=== PATIENT | male | born 1975 | race Caucasian/White ===

== ENCOUNTER → 2020-01-04 17:07 | Outpatient (CLI) | payer MEDICAID, SELFPAY ==
[2020-01-04 17:52] LABS: Basophils # 0.1 K/mm3 (0-0.2); Basophils % 0.5 % (0.1-2.0); Eosinophils # 0.2 K/mm3 (0.0-0.4); Eosinophils % 1.8 % (0.1-12.0); Hematocrit 45.7 % (42.0-52.0); Lymphocytes # 2.4 K/mm3 (0.7-4.5); Lymphocytes % 24.5 % (10-50); Mean Corpuscular Hemoglobin 32.4 pg (27.0-31.2); Mean Corpuscular Volume 92.7 fl (80-94); Mean Platelet Volume 10.6 fl (7.4-10.4); Monocytes # 0.5 K/mm3 (0.1-1.0); Monocytes % 4.8 % (1.7-9.3); Neutrophils # 6.8 K/mm3 (1.8-7.8); Neutrophils % 68.3 % (37.0-80.0); Platelet Count 238 K/mm3 (142-424); Red Blood Count 4.92 M/mm3 (4.60-6.20); Red Cell Distribution Width 14.1 % (11.5-17.5); White Blood Count 9.9 K/mm3 (4.8-10.8)
[2020-01-04 17:58] LABS: Alanine Aminotransferase 27 U/L (12-78); Albumin Level 4.5 g/dl (3.5-5.0); Albumin/Globulin Ratio 1.4 (1.1-1.8); Alkaline Phosphatase 98 U/L (38-126); Anion Gap 14.5 mEq/L (5-15); Aspartate Amino Transferase 51 U/L (17-59); Bilirubin,Total 0.5 mg/dl (0.2-1.3); Blood Urea Nitrogen 13 mg/dl (9-20); Calcium 9.6 mg/dl (8.4-10.2); Carbon Dioxide 25 mmol/L (22.0-30.0); Chloride 104 mmol/L (98-107); Cholesterol 276 mg/dl (140-200); Estimated Glomerular Filt Rate 104 ml/min (>60); GFR (African American) 126 ML/MIN (>60); Globulin 3.2 g/dL (1.3-3.2); Glucose 88 mg/dl (74-100); HDL Cholesterol 46 mg/dl (40-60); Potassium 4.5 mmoL/L (3.5-5.1); Sodium 139 mmol/L (136-145); Total Protein,Serum 7.7 g/dl (6.3-8.2); Triglycerides 283 mg/dl (30-150); VLDL Cholesterol 57 mg/dL (0-40)
[2020-01-04 18:11] LABS: Direct LDL Cholesterol 188.58 mg/dL (100-129)
[2020-01-04 18:15] LABS: 25-OH Vitamin D, Total 24.1 ng/mL (30-100)
[2020-01-04 18:16] LABS: Free T4 (Free Thyroxine) 1.22 ng/dl (0.78-2.19)
[2020-01-04 18:29] LABS: Thyroid Stimulating Hormone 1.47 uIU/mL (0.465-4.68)
== END ==
PROVIDERS: Visit Provider Emergency Medicine
DX: R53.83 Other fatigue (principal); E55.9 Vitamin D deficiency, unspecified; Z79.899 Other long term (current) drug therapy
CPT/HCPCS: 80053; 80061; 82306; 84439; 84443; 85025

== ENCOUNTER 2020-05-29 10:55 | Emergency (ER) | payer MEDICAID, SELFPAY ==
[2020-05-29 11:00] VITALS: BP 143/94; PULSE 95; RESP 20; TEMP 36.6; O2SAT 97; BMI 35.5
--- NOTE | 2020-05-29 11:26 | HMH.EDUTC ---
[facility] [place] Disposition Clinical Impression: Bilateral otitis media Qualifiers: Otitis media type: unspecified Qualified Code(s): H66.93 - Otitis media, unspecified, bilateral Disposition: Home, Self-Care Condition on Discharge: Good Instructions: Middle Ear Infection, Middle Ear Infections (Alternative Therapy) Additional Instructions: Take medication as prescribed Follow up with ENT as recommended Follow up with your Family Doctor as recommended Return if needed Straight to ER if any life threatening symptoms You was tested for today for COVID19 your test result should be back later this evening, you may call back later this evening to see if your test results are back and the result [phone] You was given a handout with instructions for Self Quarantine and Self isolation for while you wait on test results and what to do if they are positive Prescriptions: Amoxicillin/Potassium Clav [Augmentin 875125 Tablet] 1 tab PO Q12H 10 Days #20 tab Transmission Status: Pending to [facility] Referrals: Kenroy Al MD [Primary Care Provider] - As needed Paul Feliciano MD [Staff Physician] - Miri Dixon MD [Consulting Physician] - Time of Disposition: 11:43 Medical Decision Making - Cb Inquiry Pt receiving controlled substance: No Cb was queried for this patient: No Vital Signs: 05/29/20 11:00 Temperature 97.9 F Temperature Source Oral Pulse Rate [Right Brachial] 95 H Respiratory Rate 20 Blood Pressure [Right Arm] 143/94 H Blood Pressure Mean [Right Arm] 110 Blood Pressure Source [Right Arm] Automatic Cuff Blood Pressure Position [Right Arm] Sitting 02 Sat by Pulse Oximetry 97 Oxygen Delivery Method Room Air [facility] HPI - General Stated complaint: covid test, left ear pain Time Seen by Provider: 05/29/20 11:27 Mode of Arrival: Ambulatory Source of Information: Patient Limitations: No Limitations Description of Symptoms (Recalled from Triage Doc. by RN): PATIENT C/O BILATERAL EAR PAIN (LEFT EAR IS WORSE). ALSO REQUESTING COVID TEST D/T EXPOSURE HEENT Symptoms (Recalled from RN notes): Yes Resp Symptoms (Recalled from RN notes): No Skin Symptoms (Recalled from RN notes): No MS Symptoms (Recalled from RN notes): No Functional Status (Recalled from RN notes): WNL - History of Present Illness Provider Complaint: Patient state that he has been battling ear infections for about 4 yrs State that ever so often he has to come in and get a shot of Rocephin to help to clear it up State that he has taken multiple antibotics and it keeps coming right back State that he was also around someone recently that tested positive for COVID and he wants to get checked - Related Data Previous Rx's Medication Instructions Recorded gabapentin 100 mg capsule 100 mg PO TID 7 Days #21 cap 01/04/20 gabapentin 300 mg capsule 300 mg PO TID #90 cap 01/04/20 lisinopril 10 mg tablet 10 mg PO DAILY #90 tab 01/04/20 atorvastatin 10 mg tablet 10 mg PO DAILY #90 tab 01/06/20 cholecalciferol (vitamin D3) 1,250 1,250 mcg PO QWEEK #12 cap 01/06/20 mcg (50,000 unit) capsule cholecalciferol (vitamin D3) 25 25 mcg PO DAILY #90 cap 01/06/20 mcg (1,000 unit) capsule Amoxicillin/Potassium Clav 1 tab PO Q12H 10 Days #20 tab 05/29/20 [Augmentin 875-125 Tablet] Allergies Allergy/AdvReac Type Severity Reaction Status Date / Time No Known Allergies Allergy Verified 01/04/20 13:24 - Worker's Comp Is this a Worker's Comp case?: No [facility] History - Hepatitis A Screen Drug use history?: No High risk sexual behaviors?: No History of sexually transmitted infection?: No Currently employed?: No Childcare worker?: No Do you have indoor plumbing?: Yes Do you have electricity?: Yes Attestation statement:: This patient has been screened for Hepatitis A risk factors. I have reviewed the patient's past medical history: Yes Other Surgeries: Yes: Other (hemmorroid ssurgery x 2) Amputation: No Fractures: Yes Comment:
[2020-05-29 11:48] VITALS: BP 143/94; PULSE 95; RESP 20; TEMP 36.6; O2SAT 97
== END 2020-05-29 11:51 | disposition home or self-care (01) ==
PROVIDERS: Emergency Provider Nurse Practitioner; PCP Emergency Medicine
DX: Z20.828 Contact with and (suspected) exposure to other viral communicable diseases (principal); H66.93 Otitis media, unspecified, bilateral; F12.10 Cannabis abuse, uncomplicated; F17.210 Nicotine dependence, cigarettes, uncomplicated
CPT/HCPCS: 96372; 99202; U0003

== ENCOUNTER → 2020-11-24 17:01 | Outpatient (CLI) | payer MEDICAID, SELFPAY ==
[2020-11-24 18:10] LABS: Chloride 105 mmol/L (98-107); Potassium 4.4 mmoL/L (3.5-5.1); Sodium 137 mmol/L (136-145)
[2020-11-24 18:12] LABS: Blood Urea Nitrogen 11 mg/dl (9-20); Estimated Glomerular Filt Rate 121 ml/min (>60); GFR (African American) 146 ML/MIN (>60)
[2020-11-24 18:13] LABS: Alanine Aminotransferase 28 U/L (12-78); Albumin Level 4.1 g/dl (3.5-5.0); Albumin/Globulin Ratio 1.5 (1.1-1.8); Alkaline Phosphatase 99 U/L (38-126); Anion Gap 14.4 mEq/L (5-15); Aspartate Amino Transferase 22 U/L (17-59); Bilirubin,Total 0.4 mg/dl (0.2-1.3); Calcium 9.2 mg/dl (8.4-10.2); Carbon Dioxide 22 mmol/L (22.0-30.0); Chol/HDL Ratio 5.3 (1-3.5); Cholesterol 210 mg/dl (140-200); Globulin 2.7 g/dL (1.3-3.2); Glucose 147 mg/dl (74-100); HDL Cholesterol 40 mg/dl (40-60); Total Protein,Serum 6.8 g/dl (6.3-8.2); Triglycerides 175 mg/dl (30-150); VLDL Cholesterol 35 mg/dL (0-40)
[2020-11-24 18:24] LABS: Direct LDL Cholesterol 143.19 mg/dL (100-129)
== END ==
PROVIDERS: Visit Provider Emergency Medicine
DX: R53.83 Other fatigue (principal); Z79.899 Other long term (current) drug therapy
CPT/HCPCS: 80053; 80061

== ENCOUNTER → 2020-12-06 15:32 | Outpatient (CLI) | payer MEDICAID, SELFPAY ==
[2020-12-06 16:10] LABS: Hemoglobin A1C 5.5 % (4.0-6.0)
== END ==
PROVIDERS: Visit Provider Emergency Medicine
DX: R73.09 Other abnormal glucose (principal)
CPT/HCPCS: 36415; 83036

== ENCOUNTER 2021-02-13 10:59 | Emergency (ER) | payer MEDICAID, SELFPAY ==
[2021-02-13 11:00] VITALS: BP 137/75; PULSE 88; RESP 18; TEMP 36.6; O2SAT 96; BMI 36.2
--- NOTE | 2021-02-13 11:45 | HMH.EDUTC ---
[facility] [place] Clinical Impression: Exposure to COVID-19 virus Disposition: Home, Self-Care Condition on Discharge: Good Instructions: Preventing the Spread of Coronavirus Discharge Instructions Additional Instructions: Drink plenty of fluids. Take tylenol for pain or fever. Return if you begin to have difficulty breathing. Follow up with your regular doctor. GO TO THE ER FOR ANY WORSENING SYMPTOMS Referrals: Kenroy Al MD [Primary Care Provider] - Forms: Work/School Release Time of Disposition: 11:51 Medical Decision Making - Medical Records Medical records reviewed: No: I reviewed the patient's medical records. - Cb Inquiry Pt receiving controlled substance: No Vital Signs: 02/13/21 11:00 02/13/21 11:52 Temperature 97.9 F 97.9 F Temperature Source Oral Pulse Rate 88 Pulse Rate [Left Radial] 88 Respiratory Rate 18 18 Blood Pressure 137/75 Blood Pressure [Right Arm] 137/75 Blood Pressure Mean [Right Arm] 95 Blood Pressure Source [Right Arm] Automatic Cuff Blood Pressure Position [Right Arm] Sitting 02 Sat by Pulse Oximetry 96 Oxygen Delivery Method Room Air [facility] [place] - General Stated complaint: covid test, exposure Time Seen by Provider: 02/13/21 11:46 Mode of Arrival: Ambulatory Source of Information: Patient Limitations: No Limitations Description of Symptoms (Recalled from Triage Doc. by RN): covid test HEENT Symptoms (Recalled from RN notes): No Resp Symptoms (Recalled from RN notes): No Skin Symptoms (Recalled from RN notes): No MS Symptoms (Recalled from RN notes): No Functional Status (Recalled from RN notes): wnl - History of Present Illness Provider Complaint: pt states that he was around someone who was positive - Related Data Previous Rx's Medication Instructions Recorded atorvastatin 10 mg tablet 10 mg PO DAILY #90 tab 09/28/20 cholecalciferol (vitamin D3) 1,250 1,250 mcg PO QWEEK #12 cap 09/28/20 mcg (50,000 unit) capsule cholecalciferol (vitamin D3) 25 25 mcg PO DAILY #90 cap 09/28/20 mcg (1,000 unit) capsule lisinopril 10 mg tablet 10 mg PO DAILY #90 tab 09/28/20 tizanidine 4 mg capsule 4 mg PO BID PRN #14 cap 11/24/20 gabapentin 600 mg tablet 600 mg PO TID #90 tab 12/26/20 hydrocodone 5 mg-acetaminophen 325 1 tab PO BID PRN #60 tab 12/26/20 mg tablet Allergies Allergy/AdvReac Type Severity Reaction Status Date / Time No Known Allergies Allergy Verified 12/26/20 15:14 - Worker's Comp Is this a Worker's Comp case?: No H History - Hepatitis A Screen Drug use history?: No High risk sexual behaviors?: No History of sexually transmitted infection?: No Currently employed?: No Childcare worker?: No Do you have indoor plumbing?: Yes Do you have electricity?: Yes Attestation statement:: This patient has been screened for Hepatitis A risk factors. I have reviewed the patient's past medical history: Yes Medical History: Reports:: Hyperlipidemia, Hypertension Other Surgeries: Yes: Other Amputation: No Fractures: Yes Comment: rt hand,rt foot,collar bone - Social History Smoking Status: Current every day smoker Tobacco Type: cigarettes # Packs/Day (cigarettes): 1 Alcohol Intake: never Substance Use Type: marijuana Occupational Status: other Family Hx:: Cancer, Heart Attack, Hypertension, Stroke, Alcoholism ROS Obtained: Yes All systems reviewed & no additional complaints - Constitutional Constitutional: Reports system reviewed and no additional complaints, except as docu - Eyes Eyes: Reports system reviewed and no additional complaints, except as docu - ENT Ears, Nose, Mouth, and Throat: Reports system reviewed and no additional complaints, except as docu - Cardiovascular Cardiovascular: Reports system reviewed and no additional complaints, except as docu - Respiratory Respiratory: Reports system reviewed and no additional complaints, except as docu Physical Exam - General General appeara
[2021-02-13 11:52] VITALS: BP 137/75; PULSE 88; RESP 18; TEMP 36.6; O2SAT 96
== END 2021-02-13 11:54 | disposition home or self-care (01) ==
PROVIDERS: Emergency Provider Nurse Practitioner Family; PCP Emergency Medicine
DX: Z20.822 Contact with and (suspected) exposure to COVID-19 (principal); I10 Essential (primary) hypertension; E78.5 Hyperlipidemia, unspecified; F17.210 Nicotine dependence, cigarettes, uncomplicated
CPT/HCPCS: 99202; G0463; U0003

== ENCOUNTER 2021-02-23 08:16 | Emergency (ER) | payer MEDICAID, SELFPAY ==
[2021-02-23 08:17] VITALS: BP 134/65; PULSE 72; RESP 16; TEMP 36.6; O2SAT 98; BMI 35.5
--- NOTE | 2021-02-23 08:25 | HMH.EDGENADL ---
ED Disposition Clinical Impression: Foreign body Clinical Impression: (Ruled Out): Ear drum perforation Disposition: Home, Self-Care Condition on Discharge: Good Additional Instructions: Please return to the ER if worse in any way Referrals: Kenroy Al MD [Primary Care Provider] - - Critical Care Critical Care Time: No Attestation: On 02/23/21, the high probability of a clinically significant, sudden or life threatening deterioration of the following system(s) required my full and direct attention, intervention and personal management. The time I documented below is in addition to time spent performing reported procedures but includes the following listed in this critical care notation. Medical Decision Making - Medical Records Medical records reviewed: Yes: I reviewed the patient's medical records. - Cb Inquiry Pt receiving controlled substance: No Vital Signs: 02/23/21 08:17 02/23/21 08:42 Temperature 98 F 98 F Temperature Source Oral Oral Pulse Rate 78 Pulse Rate [Radial] 72 Respiratory Rate 16 16 Blood Pressure 144/74 H Blood Pressure [Right Arm] 134/65 Blood Pressure Mean [Right Arm] 88 Blood Pressure Position Sitting Blood Pressure Position [Right Arm] Sitting 02 Sat by Pulse Oximetry 98 Oxygen Delivery Method Room Air Room Air General Adult HPI - General Chief complaint: Ear Stated complaint: something in right ear Time Seen by Provider: 02/23/21 08:26 Mode of Arrival: Ambulatory Source of Information: Patient Limitations: No Limitations - History of Present Illness HPI narrative: The patient presents to the emergency department complaining of a foreign body in his right ear. He states that he feels that the tip of a cotton swab that he used last night detached from the cotton swab and is still in his ear canal. Degrees or complaints. Onset (ago): day(s) (1) Location: head (Right ear) Severity: mild - Related Data Previous Rx's Medication Instructions Recorded atorvastatin 10 mg tablet 10 mg PO DAILY #90 tab 09/28/20 cholecalciferol (vitamin D3) 1,250 1,250 mcg PO QWEEK #12 cap 09/28/20 mcg (50,000 unit) capsule cholecalciferol (vitamin D3) 25 25 mcg PO DAILY #90 cap 09/28/20 mcg (1,000 unit) capsule lisinopril 10 mg tablet 10 mg PO DAILY #90 tab 09/28/20 tizanidine 4 mg capsule 4 mg PO BID PRN #14 cap 11/24/20 gabapentin 600 mg tablet 600 mg PO TID #90 tab 12/26/20 hydrocodone 5 mg-acetaminophen 325 1 tab PO BID PRN #60 tab 12/26/20 mg tablet Allergies Allergy/AdvReac Type Severity Reaction Status Date / Time No Known Allergies Allergy Verified 12/26/20 15:14 [facility] History - Hepatitis A Screen Attestation statement:: This patient has been screened for Hepatitis A risk factors. I have reviewed the patient's past medical history: Yes Medical History: Reports:: Hyperlipidemia, Hypertension Other Surgeries: Yes: Other Amputation: No Fractures: Yes Comment: rt hand,rt foot,collar bone - Social History Smoking Status: Current every day smoker Tobacco Type: cigarettes # Packs/Day (cigarettes): 1 Alcohol Intake: never Substance Use Type: marijuana Occupational Status: other Family Hx:: Cancer, Heart Attack, Hypertension, Stroke, Alcoholism ROS Obtained: Yes All systems reviewed & no additional complaints Physical Exam - General General appearance: alert, in no apparent distress - Head Head exam: atraumatic - Eye Eye exam: Present: normal appearance, PERRL, EOMI - ENT ENT exam: Present: normal external ear exam, other (FB right ear) - Neck Neck exam: Present: normal inspection - Chest Chest inspection: Present: normal inspection - Respiratory Respiratory exam: Present: normal lung sounds bilaterally - Cardiovascular Cardiovascular exam: Present: regular rate, normal rhythm. Absent: JVD - Abdominal Exam Abdominal exam: Present: soft, normal bowel sounds. Absent: distention, tenderness, guarding - Ne
[2021-02-23 08:42] VITALS: BP 144/74; PULSE 78; RESP 16; TEMP 36.6; O2SAT 98
== END 2021-02-23 08:43 | disposition home or self-care (01) ==
PROVIDERS: Emergency Provider Emergency Medicine; PCP Emergency Medicine
DX: T16.1XXA Foreign body in right ear, initial encounter (principal)
CPT/HCPCS: 69200; 99282

== ENCOUNTER 2021-04-17 20:36 | Emergency (ER) | payer MEDICAID, SELFPAY ==
[2021-04-17 20:37] VITALS: BP 139/98; PULSE 93; RESP 16; TEMP 36.9; O2SAT 97; BMI 36.2
[2021-04-17 21:08] VITALS: BP 139/98; PULSE 93; RESP 16; TEMP 36.9; O2SAT 97; BMI 37.6
--- NOTE | 2021-04-17 21:55 | HMH.EDUTC ---
[facility] [place] Disposition Clinical Impression: Leg pain Qualifiers: Laterality: left Qualified Code(s): M79.605 - Pain in left leg Knee strain Qualifiers: Encounter type: initial encounter Laterality: left Qualified Code(s): S86.912A - Strain of unspecified muscle(s) and tendon(s) at lower leg level, left leg, initial encounter Disposition: Home, Self-Care Condition on Discharge: Good Instructions: How to Use a Knee Immobilizer Additional Instructions: *weight bearing as tolerated *RICE, Rest the extremity, Ice 15-20 minutes 3-4 times daily, Compress- wear the cade wrap as discussed as much as possible to help reduce swelling and pain, Elevate the extremity when at rest *Cade wrap/knee immobilizer is for support and help control swelling, use it except in the shower. Be sure that is not to tight but not to loose either *Elevate when resting *Ibuprofen every 6-8 hours as needed for pain an inflammation if you can take it If need something more can take Tylenol in between doses of Ibuprofen to help Immediately follow up with your family doctor for new or worsening of symptoms, or no noticeable improvement over the next 3-5 days Follow up with Orthopedics if no improvement or any worsening of symptoms You was given order for Venous Doppler of left lower extremity, make sure to have testing done and follow up with your family Doctor for your results Return if needed Straight to ER if any life threatening symptoms You may call back to the [facility] tomorrow for the official reading of you xray by the Radiologist Referrals: Kenroy Al MD [Primary Care Provider] - As needed Gonzalo Macias MD [Staff Physician] - Forms: Work/School Release Time of Disposition: 22:51 Medical Decision Making - Cb Inquiry Pt receiving controlled substance: No Cb was queried for this patient: No Vital Signs: 04/17/21 20:37 04/17/21 21:08 04/17/21 22:47 Temperature 98.4 F 98.4 F 98 F Temperature Source Oral Oral Pulse Rate 93 H Pulse Rate [Right Radial] 93 H 93 H Respiratory Rate 16 16 18 Blood Pressure 139/98 H Blood Pressure [Right Arm] 139/98 H 139/98 H Blood Pressure Mean [Right Arm] 111 111 Blood Pressure Source [Right Arm] Automatic Cuff Blood Pressure Position [Right Arm] Sitting 02 Sat by Pulse Oximetry 97 97 Oxygen Delivery Method Room Air - Radiology Data #1 Image(s): Knee Image Reviewed: Yes I reviewed the patient's radiology image Preliminary Findings: No Fracture Seen Medical Decision Narrative: Patient reports that he is active denies history of DVT denies swelling or redness noted on leg States that he is currently taking Gabapentin and pain medication but pain in knee area has been going on for about a year but worse over the last week and unsure if he may have done something too it, feet warm and dry with +pedal pulses reports pain is in and behind knee area and in upper leg above knee no bruising or obvious injury noted [facility] [place] HPI - General Stated complaint: left leg pain no ao Time Seen by Provider: 04/17/21 21:55 Mode of Arrival: Ambulatory Source of Information: Patient Limitations: No Limitations Description of Symptoms (Recalled from Triage Doc. by RN): pt c/o pain, buring and weakness in the back of the L lower leg. pt states this has been ongoing for a year. no injury that pt is aware. HEENT Symptoms (Recalled from RN notes): No Resp Symptoms (Recalled from RN notes): No Skin Symptoms (Recalled from RN notes): No MS Symptoms (Recalled from RN notes): Yes (L lower posterior leg pain and weakness) Functional Status (Recalled from RN notes): na - History of Present Illness Provider Complaint: Patient state that he has been having pain in his left knee/upper leg area for about a year State that pain comes and goes and he has continued to work on it State that he is currently on Gabapentin to help with nerve pain in the leg but for the week the pain in and around his knee area and upper leg castro
--- NOTE | 2021-04-17 21:56 | XR_ITS ---
PROCEDURE INFORMATION: Exam: XR Left Knee Exam date and time: 04/17/2021 9:56 PM Age: 45 years old Clinical indication: Knee; Left; Patient HX: Pain for 1 year and increased in the last week, no known injury TECHNIQUE: Imaging protocol: XR Left knee. Views: 3 views. COMPARISON: No relevant prior studies available. FINDINGS: Bones/joints: Normal. Soft tissues: Normal. IMPRESSION: No acute findings.
[2021-04-17 22:47] VITALS: BP 139/98; PULSE 93; RESP 18; TEMP 36.6
== END 2021-04-17 22:54 | disposition home or self-care (01) ==
LOC: ER 20:37 → UTC 20:53
PROVIDERS: Emergency Provider Nurse Practitioner; PCP Emergency Medicine
DX: S86.912A Strain of unspecified muscle(s) and tendon(s) at lower leg level, left leg, initial encounter (principal); M79.605 Pain in left leg; E78.5 Hyperlipidemia, unspecified; F17.210 Nicotine dependence, cigarettes, uncomplicated
CPT/HCPCS: 29505; 73562; 99202; G0463

== ENCOUNTER → 2021-05-28 13:50 | Outpatient (CLI) | payer MEDICAID, SELFPAY ==
[2021-05-28 14:59] LABS: Amphetamine/Metha Screen,Urine Negative ng/ml (<1000)
[2021-05-28 15:00] LABS: Barbiturates Screen,Urine Negative ng/ml (<200); Benzodiazepines Screen,Urine Negative ng/ml (<200)
[2021-05-28 15:01] LABS: Cannabinoid Screen,Urine Negative ng/ml (<50)
[2021-05-28 15:02] LABS: Cocaine Screen,Urine Negative ng/ml (<300); Methadone Screen,Urine Negative ng/ml (<300)
[2021-05-28 15:03] LABS: Opiate Screen,Urine Negative ng/ml (<300)
[2021-05-28 15:04] LABS: Phencyclidine Screen,Urine Negative ng/ml (<25)
== END ==
PROVIDERS: Visit Provider Emergency Medicine
DX: Z79.899 Other long term (current) drug therapy (principal)
CPT/HCPCS: 80305

== ENCOUNTER → 2021-07-24 14:13 | Outpatient (CLI) | payer MEDICAID, SELFPAY ==
[2021-07-24 16:08] LABS: Amphetamine/Metha Screen,Urine Negative ng/ml (<1000); Barbiturates Screen,Urine Negative ng/ml (<200)
[2021-07-24 16:09] LABS: Benzodiazepines Screen,Urine Negative ng/ml (<200)
[2021-07-24 16:10] LABS: Cannabinoid Screen,Urine Negative ng/ml (<50); Cocaine Screen,Urine Negative ng/ml (<300)
[2021-07-24 16:11] LABS: Methadone Screen,Urine Negative ng/ml (<300); Opiate Screen,Urine Negative ng/ml (<300)
[2021-07-24 16:13] LABS: Phencyclidine Screen,Urine Negative ng/ml (<25)
== END ==
PROVIDERS: Visit Provider Emergency Medicine
DX: Z79.899 Other long term (current) drug therapy (principal)
CPT/HCPCS: 80305

== ENCOUNTER 2021-09-14 12:01 | Outpatient (RCR) | payer MEDICAID, SELFPAY | END 2021-09-14 13:00 | disposition home or self-care (01) | LOC: PT 12:01 | PROVIDERS: Visit Provider Orthopaedic Surgery | DX: M25.562 Pain in left knee (principal) | CPT/HCPCS: 97760 ==

== ENCOUNTER → 2021-09-24 09:56 | Outpatient (CLI) | payer MEDICAID, SELFPAY ==
--- NOTE | 2021-09-24 09:56 | MR_ITS ---
FINAL REPORT CLINICAL HISTORY: evaluate for ACL tear. heard a pop in knee [id number] ago. posterior knee pain. anterior knee swelling. knee instability. FINDINGS: Multiplanar MR imaging of the right knee was performed without contrast. There is a SLAP tear at the posterior horn of the medial meniscus seen on series 8 image #21. There is also a tear of the posterior horn of the lateral meniscus. The anterior and posterior cruciate ligaments are intact. The medial collateral ligament and lateral ligamentous complex are intact. The patellar and quadriceps tendons are intact. There is no evidence of fracture. There are mild degenerative changes with moderate chondromalacia. A moderate sized joint effusion is seen. The musculature is intact. There is a moderate sized popliteal cyst. IMPRESSION: Tears of the posterior horns of the medial and lateral menisci. Mild degenerative changes with moderate chondromalacia, moderate joint effusion and moderate popliteal cyst. Reviewed, Interpreted and Dictated by Gene Martin III, MD Transcribed by Estela Mckinley Authenticated by Gene Martin III, MD on 09/24/2021 12:26:38 PM [facility]
--- NOTE | 2021-09-24 10:04 | XR_ITS ---
FINAL REPORT CLINICAL HISTORY: RULE OUT METAL IN EYES. PRIOR HX METAL IN RT EYE. FINDINGS: ORBITS Look up and look down views were obtained of the orbits. No foreign body is identified. No acute bony abnormality. IMPRESSION: No foreign body identified. Reviewed, Interpreted and Dictated by Gene Martin III, MD Transcribed by Nelda Vargas Authenticated by Gene Martin III, MD on 09/24/2021 11:24:00 AM [facility]
== END ==
PROVIDERS: PCP Emergency Medicine; Visit Provider Orthopaedic Surgery
DX: S83.512A Sprain of anterior cruciate ligament of left knee, initial encounter (principal); H05.53 Retained (old) foreign body following penetrating wound of bilateral orbits
CPT/HCPCS: 70200; 73721

== ENCOUNTER → 2021-09-24 16:26 | Outpatient (CLI) | payer MEDICAID, SELFPAY ==
[2021-09-24 15:57] LABS: Amphetamine/Metha Screen,Urine Negative ng/ml (<1000)
[2021-09-24 15:58] LABS: Barbiturates Screen,Urine Negative ng/ml (<200)
[2021-09-24 15:59] LABS: Benzodiazepines Screen,Urine Negative ng/ml (<200); Cannabinoid Screen,Urine Negative ng/ml (<50)
[2021-09-24 16:00] LABS: Cocaine Screen,Urine Negative ng/ml (<300); Methadone Screen,Urine Negative ng/ml (<300)
[2021-09-24 16:01] LABS: Opiate Screen,Urine Negative ng/ml (<300)
[2021-09-24 16:02] LABS: Phencyclidine Screen,Urine Negative ng/ml (<25)
== END ==
PROVIDERS: Visit Provider Emergency Medicine
DX: Z79.899 Other long term (current) drug therapy (principal)
CPT/HCPCS: 80305

== ENCOUNTER → 2021-11-26 10:40 | Outpatient (CLI) | payer MEDICAID, SELFPAY ==
[2021-11-26 13:49] LABS: Amphetamine/Metha Screen,Urine Negative ng/ml (<1000); Barbiturates Screen,Urine Negative ng/ml (<200)
[2021-11-26 13:51] LABS: Benzodiazepines Screen,Urine Negative ng/ml (<200)
[2021-11-26 13:52] LABS: Cannabinoid Screen,Urine Negative ng/ml (<50); Cocaine Screen,Urine Negative ng/ml (<300)
[2021-11-26 13:53] LABS: Methadone Screen,Urine Negative ng/ml (<300)
[2021-11-26 13:54] LABS: Opiate Screen,Urine Negative ng/ml (<300); Phencyclidine Screen,Urine Negative ng/ml (<25)
== END ==
PROVIDERS: PCP Emergency Medicine; Visit Provider Emergency Medicine
DX: Z79.899 Other long term (current) drug therapy (principal)
CPT/HCPCS: 80305

== ENCOUNTER → 2021-12-04 09:02 | Outpatient (CLI) | payer MEDICAID, SELFPAY ==
[2021-12-04 09:30] LABS: Basophils # 0.1 K/mm3 (0-0.2); Basophils % 0.9 % (0.1-2.0); Eosinophils # 0.2 K/mm3 (0.0-0.4); Eosinophils % 2.3 % (0.1-12.0); Hemoglobin 14.9 g/dL (14.1-18.0); Lymphocytes # 1.8 K/mm3 (0.7-4.5); Lymphocytes % 17.8 % (10-50); Mean Corpuscular HGB Conc 32.4 g/dL (31.8-35.4); Mean Corpuscular Hemoglobin 30.5 pg (27.0-31.2); Mean Corpuscular Volume 93.9 fl (80-94); Mean Platelet Volume 8.9 fl (7.4-10.4); Monocytes # 0.5 K/mm3 (0.1-1.0); Monocytes % 4.7 % (1.7-9.3); Neutrophils # 7.6 K/mm3 (1.8-7.8); Neutrophils % 74.3 % (37.0-80.0); Platelet Count 232 K/mm3 (142-424); Red Blood Count 4.89 M/mm3 (4.60-6.20); Red Cell Distribution Width 14.1 % (11.5-17.5); White Blood Count 10.3 K/mm3 (4.8-10.8)
[2021-12-04 10:00] LABS: Chloride 109 mmol/L (98-107); Sodium 138 mmol/L (136-145)
[2021-12-04 10:01] LABS: Potassium 3.9 mmoL/L (3.5-5.1)
[2021-12-04 10:03] LABS: Blood Urea Nitrogen 12 mg/dl (9-20)
[2021-12-04 10:04] LABS: Anion Gap 7.9 mEq/L (5-15); Calcium 9.2 mg/dl (8.4-10.2); Carbon Dioxide 25 mmol/L (22.0-30.0); Estimated Glomerular Filt Rate 144 ml/min (>60); GFR (African American) 174 ML/MIN (>60); Glucose 95 mg/dl (74-100)
[2021-12-04 10:11] LABS: Hemoglobin A1C 5.6 % (4.0-6.0)
== END ==
PROVIDERS: PCP Emergency Medicine; Visit Provider Orthopaedic Surgery
DX: Z01.812 Encounter for preprocedural laboratory examination (principal); Z11.52 Encounter for screening for COVID-19; M25.562 Pain in left knee
CPT/HCPCS: 36415; 80048; 83036; 85025; C9803; U0003; U0005

== ENCOUNTER 2021-12-06 08:32 | Day surgery (SDC) | payer MEDICAID, SELFPAY ==
[2021-12-04 11:14] VITALS: BMI 35.5
[2021-12-06] VITALS (11 sets, daily range): BP systolic 137–156; BP diastolic 84–97; PULSE 67–85; RESP 12–18; TEMP 36.4–43; O2SAT 95–99
--- NOTE | 2021-12-06 10:24 | HMH.ANESCL ---
[facility] Anesthesia Checklist - Structural Data Admitted From: Home Planned Operative Procedure/s: l knee arthroscopy Consent for Planned Operative Procedure(s) Verified: Yes - Additional verifications Anesthesia Reactions: No Hx Blood Transfusions: No Blood Transfusion Reaction: No - Airway Assessment C-Spine Mobility Assessed: Yes TMJ Mobility Assessed: Yes Dentition: Dentures-good fit - Neurological Assessment Level of Consciousness: Awake, Alert, Appropriate - Anesthesia Plan Anesthesia Risk discussed: Yes Anesthesia Plan: Verified ASA Class: II Anesthesia Type: General [facility] History I have reviewed the patient's past medical history: Yes Medical History: Reports:: Hyperlipidemia, Hypertension, MRSA Denies:: Cancer, Diabetes Mellitus Type 1, Diabetes Mellitus Type 2, Internal Pacemaker, Seizures *Have you ever received a pneumonia vaccine?: No *Have you received a flu vaccine this season?: No Other Medical History: Denies: Blood Transfusion Reaction Anesthesia experience/problems:: none Other Surgeries: Yes: Other. No: Pacemaker Amputation: No Fractures: No - *Social History Last grade of school completed: GED Smoking Status: Current every day smoker Tobacco Type: cigarettes # Packs/Day (cigarettes): 1 Alcohol Intake: never Substance Use Type: marijuana *Occupational Status:: employed Housing: house *Travel in the last 8 weeks: None Family Hx:: Cancer, Heart Attack, Hypertension, Stroke, Alcoholism
--- NOTE | 2021-12-06 10:55 | HMH.ANESI ---
[facility] Anesthesia Record Part I Intake, IV Amount: 1,000 Estimated blood loss (mL): 0 Urine output (mL): 0 Blood Pressure: 156/85 SaO2: 96 Pulse Rate: 81 Respiratory Rate: 12 Temperature: 99 F Patient is:: Awake, Stable Stable to PACU at:: 10:55
--- NOTE | 2021-12-06 10:56 | HMH.OPNOTE ---
Date of procedure: 12/06/21 Pre-op Diagnosis:: Left knee medial meniscus tear Post-op Diagnosis:: Left knee medial and lateral meniscus tears Procedure performed:: Left knee arthroscopy with partial medial and lateral meniscectomy Surgeon:: Kentrell Zhang MD Anesthesia: GETA, local Estimated blood loss (mL): 5 Clinical Note:: Musa is a pleasant 46-year-old male who has been dealing with left knee pain since March of last year. A left knee aspiration and cortisone injection only helped for a couple of weeks. No relief with meloxicam or pain medicine. Left knee MRI revealed mild degenerative changes and complex tear posterior horn medial meniscus. We discussed all the risks, benefits and alternatives to left knee arthroscopy for partial medial meniscectomy and he agreed to proceed. Operative findings:: Left knee complex tear posterior horn and body of the medial and lateral meniscus. 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 Ligaments were intact. Operative note:: The patient was seen in the preoperative holding area. He received Ancef 2 g IV prophylactic antibiotics within 1 hour of incision time. He was seen by anesthesia. Left knee was marked to confirm the correct operative site. He was brought back to the operating room. Left lower extremity was prepped and draped in usual sterile fashion. Timeout was performed to confirm left knee arthroscopy on patient Musa Licea. I made an anterolateral viewing portal with an 11 blade scalpel. Arthroscope was introduced into the knee joint. I then made an anteromedial portal also with the 11 blade scalpel. This was dilated with a trocar. Diagnostic arthroscopy commenced. Evaluation of the patellofemoral compartment revealed some diffuse grade II-III chondromalacia of the central aspect of the trochlea. This was treated with a 4.0 mm shaver removing any unstable cartilage flaps back to a smooth stable border. There was no full-thickness cartilage loss. Evaluation of the medial compartment revealed complex tear posterior horn and body of the medial meniscus with horizontal cleavage component. This was treated with a 4.0 mm shaver removing the unstable inferior flap back to smooth stable border. We had to remove approximately 1/3-1/2 of the medial meniscus at the apex of the tear at the junction of the posterior horn to body. There is also some grade II-III chondromalacia of the central aspect of the medial femoral condyle that was debrided with a shaver. Cruciate ligaments were seen to be intact. He was then placed in the [id number] position and we entered the lateral compartment. He was also seen to have some diffuse tearing of the posterior horn and body of the lateral meniscus with horizontal cleavage components as well. This was also treated with a partial lateral meniscectomy with a 4.0 mm shaver removing approximately the inner third of the posterior horn and body of the lateral meniscus back to a smooth stable border. Final pictures were taken of the medial and lateral compartments after completing the partial medial and lateral meniscectomy. Arthroscopy instruments were removed from the joint. Arthroscopy fluid was suctioned and drained from the joint. Portals were closed with 4 Monocryl subcuticular stitches. I injected 20 cc of 0.5% Naropin from the superolateral approach for local anesthetic. I applied a sterile dressing with Steri-Strips, 4 x 4's, ABD, Sof-Rol and an Cade bandage. Anesthesia was reversed without difficulty and he was transferred to the recovery room in stable condition. All sponge and needle counts correct x2. Tourniquet time (min): 0 (Tourniquet was not used) Condition: stable Disposition: PACU Specimens:: None Complications:: None
[2021-12-07 08:14] VITALS: BP 149/97; PULSE 72; TEMP 36.6
--- NOTE | 2021-12-07 08:14 | HMH.ANESII ---
[facility] Anesthesia Record Part II Discharge Time: 11:25 Destination: Surgical Day Care (OP Surgery) PACU nurse assessment reviewed?: Yes Patient Condition:: Good Anesthesia Complications:: None Swallowing reflex intact?: Yes Cyanosis?: No Blood Pressure: 149/97 Pulse Rate: 72 Temperature: 97.9 F Mental Status: Alert & Oriented Pain level:: 5 Nausea and/or vomitting:: None Intake, IV Amount: 0
== END 2021-12-06 12:02 | disposition home or self-care (01) ==
PROVIDERS: PCP Emergency Medicine; Visit Provider Orthopaedic Surgery
PROC: (CPT 29870; principal; 2021-12-06 10:00)
DX: M23.222 Derangement of posterior horn of medial meniscus due to old tear or injury, left knee (principal); M23.201 Derangement of unspecified lateral meniscus due to old tear or injury, left knee
CPT/HCPCS: 29880; 96374; J2405

== ENCOUNTER → 2022-01-23 13:50 | Outpatient (CLI) | payer MEDICAID, SELFPAY ==
[2022-01-23 14:07] LABS: Amphetamine/Metha Screen,Urine Negative ng/ml (<1000); Barbiturates Screen,Urine Negative ng/ml (<200)
[2022-01-23 14:08] LABS: Benzodiazepines Screen,Urine Negative ng/ml (<200)
[2022-01-23 14:09] LABS: Cannabinoid Screen,Urine Negative ng/ml (<50); Cocaine Screen,Urine Negative ng/ml (<300)
[2022-01-23 14:10] LABS: Methadone Screen,Urine Negative ng/ml (<300)
[2022-01-23 14:11] LABS: Opiate Screen,Urine Positive ng/ml (<300); Phencyclidine Screen,Urine Negative ng/ml (<25)
== END ==
PROVIDERS: PCP Emergency Medicine; Visit Provider Emergency Medicine
DX: Z79.899 Other long term (current) drug therapy (principal)
CPT/HCPCS: 80305

== ENCOUNTER → 2022-03-22 18:21 | Outpatient (CLI) | payer MEDICAID, SELFPAY ==
[2022-03-22 18:47] LABS: Amphetamine/Metha Screen,Urine Negative ng/ml (<1000)
[2022-03-22 18:48] LABS: Barbiturates Screen,Urine Negative ng/ml (<200)
[2022-03-22 18:49] LABS: Benzodiazepines Screen,Urine Negative ng/ml (<200); Cannabinoid Screen,Urine Negative ng/ml (<50)
[2022-03-22 18:50] LABS: Cocaine Screen,Urine Negative ng/ml (<300)
[2022-03-22 18:51] LABS: Methadone Screen,Urine Negative ng/ml (<300)
[2022-03-22 18:52] LABS: Opiate Screen,Urine Positive ng/ml (<300); Phencyclidine Screen,Urine Negative ng/ml (<25)
== END ==
PROVIDERS: PCP Emergency Medicine; Visit Provider Emergency Medicine
DX: Z79.899 Other long term (current) drug therapy (principal)
CPT/HCPCS: 80305

== ENCOUNTER → 2022-05-27 14:42 | Outpatient (CLI) | payer MEDICAID, SELFPAY ==
[2022-05-27 15:15] LABS: Barbiturates Screen,Urine Negative ng/ml (<200)
[2022-05-27 15:16] LABS: Amphetamine/Metha Screen,Urine Negative ng/ml (<1000)
[2022-05-27 15:17] LABS: Benzodiazepines Screen,Urine Negative ng/ml (<200)
[2022-05-27 15:18] LABS: Cannabinoid Screen,Urine Negative ng/ml (<50); Cocaine Screen,Urine Negative ng/ml (<300)
[2022-05-27 15:19] LABS: Methadone Screen,Urine Negative ng/ml (<300)
[2022-05-27 15:20] LABS: Opiate Screen,Urine Negative ng/ml (<300); Phencyclidine Screen,Urine Negative ng/ml (<25)
== END ==
PROVIDERS: PCP Emergency Medicine; Visit Provider Emergency Medicine
DX: Z79.899 Other long term (current) drug therapy (principal)
CPT/HCPCS: 80305

== ENCOUNTER → 2022-07-17 13:30 | Outpatient (CLI) | payer MEDICAID, SELFPAY ==
--- NOTE | 2022-07-17 13:30 | MR_ITS ---
FINAL REPORT CLINICAL HISTORY: back pain. left leg pain and weakness. FINDINGS: Multiplanar MR imaging of the lumbar spine was performed without contrast. On the sagittal T2-weighted images, disc degeneration is seen at multiple levels. There is mild leftward curvature. The vertebral alignment is normal. There is no evidence of fracture. The conus has an unremarkable appearance. T12-L1: An annular bulge is present. Facet arthropathy and osteophytes are present. There is no significant canal stenosis or neural foraminal narrowing. L1-2: An annular bulge and facet arthropathy are present. There is mild left neural foraminal narrowing. L2-3: An annular bulge and facet arthropathy are present. There is mild right neural foraminal narrowing. L3-4: An annular bulge is present. Facet arthropathy and osteophytes are present. There is mild right neural foraminal narrowing. L4-5: An annular bulge and facet arthropathy are present. There is mild bilateral neural foraminal narrowing. L5-S1: An annular bulge and facet arthropathy are present. There is mild bilateral neural foraminal narrowing. Note is made of mild spurring of the sacroiliac joints. IMPRESSION: Multilevel degenerative disc disease and spondylosis. Reviewed, Interpreted and Dictated by Gene Martin III, MD Transcribed by Sherie Blanco Authenticated and [facility]
== END ==
PROVIDERS: PCP Emergency Medicine; Visit Provider Emergency Medicine
DX: M54.9 Dorsalgia, unspecified (principal); M54.50 Low back pain, unspecified; M79.605 Pain in left leg; R53.1 Weakness
CPT/HCPCS: 72148; 76376

== ENCOUNTER → 2022-07-26 17:52 | Outpatient (CLI) | payer MEDICAID, SELFPAY ==
[2022-07-26 15:39] LABS: Basophils # 0.1 K/mm3 (0-0.2); Basophils % 0.9 % (0.1-2.0); Eosinophils # 0.3 K/mm3 (0.0-0.4); Eosinophils % 2.5 % (0.1-12.0); Hematocrit 47.1 % (42.0-52.0); Hemoglobin 15.2 g/dL (14.1-18.0); Lymphocytes # 2.3 K/mm3 (0.7-4.5); Mean Corpuscular HGB Conc 32.3 g/dL (31.8-35.4); Mean Corpuscular Hemoglobin 30.6 pg (27.0-31.2); Mean Corpuscular Volume 94.5 fl (80-94); Mean Platelet Volume 10.6 fl (7.4-10.4); Monocytes # 0.4 K/mm3 (0.1-1.0); Monocytes % 3.9 % (1.7-9.3); Neutrophils # 7.9 K/mm3 (1.8-7.8); Neutrophils % 71.6 % (37.0-80.0); Platelet Count 242 K/mm3 (142-424); Red Blood Count 4.98 M/mm3 (4.60-6.20); Red Cell Distribution Width 14.6 % (11.5-17.5)
[2022-07-26 16:18] LABS: Barbiturates Screen,Urine Negative ng/ml (<200)
[2022-07-26 16:19] LABS: Benzodiazepines Screen,Urine Negative ng/ml (<200)
[2022-07-26 16:20] LABS: Amphetamine/Metha Screen,Urine Positive ng/ml (<1000); Methadone Screen,Urine Negative ng/ml (<300)
[2022-07-26 16:21] LABS: Cannabinoid Screen,Urine Positive ng/ml (<50)
[2022-07-26 16:22] LABS: Cocaine Screen,Urine Negative ng/ml (<300); Opiate Screen,Urine Negative ng/ml (<300)
[2022-07-26 16:23] LABS: Phencyclidine Screen,Urine Negative ng/ml (<25)
[2022-07-26 17:49] LABS: 25-OH Vitamin D, Total 29.4 ng/mL (30-100)
[2022-07-26 21:14] LABS: Chloride 101 mmol/L (98-107); Potassium 3.9 mmoL/L (3.5-5.1); Sodium 140 mmol/L (136-145)
[2022-07-26 21:16] LABS: Blood Urea Nitrogen 11 mg/dl (9-20); Estimated Glomerular Filt Rate 90 ml/min (>60); GFR (African American) 109 ML/MIN (>60)
[2022-07-26 21:17] LABS: Alanine Aminotransferase 12 U/L (12-78); Albumin Level 4.4 g/dl (3.5-5.0); Albumin/Globulin Ratio 1.4 (1.1-1.8); Alkaline Phosphatase 113 U/L (38-126); Anion Gap 16.9 mEq/L (5-15); Aspartate Amino Transferase 19 U/L (17-59); Bilirubin,Total 0.8 mg/dl (0.2-1.3); Calcium 8.9 mg/dl (8.4-10.2); Carbon Dioxide 26 mmol/L (22.0-30.0); Cholesterol 238 mg/dl (140-200); Globulin 3.1 g/dL (1.3-3.2); Glucose 110 mg/dl (74-100); Total Protein,Serum 7.5 g/dl (6.3-8.2); Triglycerides 101 mg/dl (30-150); VLDL Cholesterol 20 mg/dL (0-40)
[2022-07-26 21:18] LABS: Chol/HDL Ratio 4.7 (1-3.5); HDL Cholesterol 51 mg/dl (40-60)
[2022-07-26 21:29] LABS: Direct LDL Cholesterol 146.52 mg/dL (100-129)
[2022-07-26 21:48] LABS: Thyroid Stimulating Hormone 1.82 uIU/mL (0.465-4.68)
[2022-07-26 22:34] LABS: Prostate Specific Ag Screen 0.4 ng/ml (0.0-4.0)
== END ==
PROVIDERS: PCP Emergency Medicine; Visit Provider Emergency Medicine
DX: Z00.00 Encounter for general adult medical examination without abnormal findings (principal); M54.16 Radiculopathy, lumbar region; N41.9 Inflammatory disease of prostate, unspecified; E55.9 Vitamin D deficiency, unspecified; Z79.899 Other long term (current) drug therapy; Z12.5 Encounter for screening for malignant neoplasm of prostate
CPT/HCPCS: 80053; 80061; 80305; 82306; 84443; 85025; G0103

== ENCOUNTER 2023-07-07 20:21 | Emergency (ER) | payer MEDICAID, SELFPAY ==
[2023-07-07 20:22] VITALS: BP 165/81; PULSE 89; RESP 16; TEMP 37; O2SAT 98; BMI 35.5
[2023-07-07 21:10] LABS: Coronavirus 19, PCR Not Detected (NotDetected); Influenza A, PCR Not Detected (NotDetected); Influenza B, PCR Not Detected (NotDetected)
--- NOTE | 2023-07-07 21:37 | HMH.EDGENADL ---
Discharge Plan Disposition Patient Disposition: Home, Self-Care Prescriptions Prescriptions: New prednisone 20 mg tablet 40 mg PO BID 5 Days Qty: 20 0RF No Action levofloxacin 500 mg tablet 500 mg PO DAILY Qty: 10 0RF atorvastatin 10 mg tablet See Rx Instructions .Route .COMPLEX Qty: 90 0RF Rx Instructions: TAKE ONE TABLET BY MOUTH EVERY DAY FOR CHOLESTEROL cholecalciferol (vitamin D3) 1,250 mcg (50,000 unit) capsule 1,250 mcg PO QWEEK Qty: 12 1RF cholecalciferol (vitamin D3) 25 mcg (1,000 unit) capsule 25 mcg PO DAILY Qty: 90 0RF lisinopril 10 mg tablet 10 mg PO DAILY Qty: 90 0RF gabapentin 600 mg tablet 600 mg PO TID Qty: 90 0RF hydrocodone-acetaminophen 7.5-325 mg tablet 1 tab PO TID Qty: 90 0RF isgdasnf-owkykt-EV-thonzonium 10 ML drops,suspension 2 drp OTIC BID meloxicam 15 MG tablet 15 mg PO DAILY aspirin 325 MG tablet 325 mg PO DAILY Qty: 14 0RF Rx Instructions: Take with breakfast starting 12/07 for 2 weeks Referrals Follow up/Referrals: Shahram Ovalles DO [Primary Care Provider] - See instructions Activity Restrictions/Add. Instructions Additional Instructions/Restrictions: Call your family doctor to establish care for this visit to the emergency department and schedule follow-up within 48 hours to ensure improvement. If you have any worsening of your condition or any other concerning signs or symptoms, return to the emergency department or your primary care doctor for further evaluation. Dr. Kidd's information here, call him tomorrow, 07/08 to set up an appointment. Clinical Impressions Clinical Impression: Cellulitis, Acute pain of left knee Stand Alone Forms Stand Alone Forms: Work/School Release Discharge ED Provider: Daniel Burnett General Adult [facility] General Chief complaint: Extremity Problem,Nontraumatic Stated complaint: LT leg pain, exposed to covid-GUZMAN Time Seen by Provider: 07/07/23 21:12 Mode of Arrival: Ambulatory Source of Information: Patient Limitations: No Limitations Description of Symptoms (Recalled from ER Triage Doc. by RN): pt reports being exposed to covid and requests covid swab, pt also reports left lower leg pain from knee to foot, denies injury, reports he is suppose to have left knee replacement in future. History of Present Illness HPI narrative: 48-year-old male history of numerous left knee surgeries and chronic pain presenting with left knee pain. Patient states that he had his meniscus repaired, he used to follow-up with orthopedics, has not seen them in a while. Patient is having problems with his knee getting caught, significant pain. Largely unable to bear weight at this time secondary to pain. Made better with rest and oral meds. Denies fevers or chills, skin changes, trauma, or DVT risk factors. Related Data Home Medications Medication Instructions Recorded Confirmed meloxicam 15 mg tablet 15 mg PO DAILY Pain 12/04/21 07/26/22 ukdgqobg-hruuam-FZ-thonzonm 3.3 2 drp OTIC BID Ear ache 12/04/21 07/26/22 mg-3 mg-10 mg-0.5 mg/mL ear drops,susp Previous Rx's Medication Instructions Recorded aspirin 325 mg tablet 325 mg PO DAILY #14 tabs 12/06/21 atorvastatin 10 mg tablet See Rx Instructions .Route 01/23/22 .COMPLEX Cholesterol #90 tabs cholecalciferol (vitamin D3) 1,250 1,250 mcg PO QWEEK Supplement #12 01/23/22 mcg (50,000 unit) capsule caps cholecalciferol (vitamin D3) 25 25 mcg PO DAILY Supplement #90 caps 01/23/22 mcg (1,000 unit) capsule lisinopril 10 mg tablet 10 mg PO DAILY High blood pressure 01/23/22 #90 tabs levofloxacin 500 mg tablet 500 mg PO DAILY #10 tabs 07/26/22 gabapentin 600 mg tablet 600 mg PO TID #90 tabs 07/30/22 hydrocodone 7.5 mg-acetaminophen 1 tab PO TID Pain #90 tabs 07/30/22 325 mg tablet prednisone 20 mg tablet 40 mg PO BID 5 days #20 tabs 07/07/23 Allergies Allergy/AdvReac Type Severity Reaction Status Date / Time No Known Allergies Al
[2023-07-07 22:24] VITALS: BP 140/70; PULSE 75; RESP 18; TEMP 36.7; O2SAT 98
== END 2023-07-07 22:25 | disposition home or self-care (01) ==
PROVIDERS: Emergency Provider Emergency Medicine; PCP Internal Medicine
DX: M25.562 Pain in left knee (principal); M71.22 Synovial cyst of popliteal space [Baker], left knee; F17.210 Nicotine dependence, cigarettes, uncomplicated; L03.90 Cellulitis, unspecified
CPT/HCPCS: 87636; 99283

== ENCOUNTER 2023-07-29 12:51 | Outpatient (CLI) | payer MEDICAID, SELFPAY ==
--- NOTE | 2023-07-29 12:59 | XR_ITS ---
FINAL REPORT CLINICAL HISTORY: left knee pain COMPARISON: None FINDINGS: Three views of the left knee reveal no evidence of fracture or dislocation. The bony alignment is normal. There is moderate degenerative change present in the left knee. A calcific density is present just medial to the medial femoral condyle. There is no evidence of joint effusion. IMPRESSION: Moderate degenerative change as described. Reviewed, Interpreted and Dictated by Gene Martin III, MD Transcribed by Falguni Valdivia Authenticated and [facility]
== END 2023-07-29 23:59 ==
LOC: RAD 12:53
PROVIDERS: Visit Provider Orthopaedic Surgery
DX: M25.562 Pain in left knee (principal)
CPT/HCPCS: 73562

== ENCOUNTER 2023-08-21 14:56 | Emergency (ER) | payer MEDICAID, SELFPAY ==
[2023-08-21 15:45] VITALS: BP 141/94; PULSE 90; RESP 18; TEMP 36.7; O2SAT 97; BMI 22.3
--- NOTE | 2023-08-21 15:47 | EXP.UTC ---
Discharge Plan Disposition Patient Disposition: Home, Self-Care Condition: Good Prescriptions Prescriptions: New promethazine-DM 6.25-15 mg/5 mL Syrup 5 ml PO Q6H PRN (Reason: Cough) Qty: 240 0RF benzonatate [benzonatate] 100 mg capsule 100 mg PO TIDP PRN (Reason: Cough) Qty: 30 0RF methylprednisolone 4 mg Tablets,Dose Pack 4 mg PO DIRECTED 6 Days Qty: 21 0RF Rx Instructions: Take 1 pack as directed for 6 days amoxicillin-pot clavulanate 875-125 mg Tablet 1 tab PO Q12H Qty: 20 0RF ciprofloxacin-dexamethasone 0.3-0.1 % Drops,Suspension 2 drp Ear-Right BID 7 Days Qty: 1 0RF No Action levofloxacin 500 mg tablet 500 mg PO DAILY Qty: 10 0RF celecoxib [Celebrex] 200 mg capsule 200 mg PO DAILY Qty: 30 2RF atorvastatin 10 mg tablet See Rx Instructions .Route .COMPLEX Qty: 90 0RF Rx Instructions: TAKE ONE TABLET BY MOUTH EVERY DAY FOR CHOLESTEROL cholecalciferol (vitamin D3) 1,250 mcg (50,000 unit) capsule 1,250 mcg PO QWEEK Qty: 12 1RF cholecalciferol (vitamin D3) 25 mcg (1,000 unit) capsule 25 mcg PO DAILY Qty: 90 0RF lisinopril 10 mg tablet 10 mg PO DAILY Qty: 90 0RF gabapentin 600 mg tablet 600 mg PO TID Qty: 90 0RF hydrocodone-acetaminophen 7.5-325 mg tablet 1 tab PO TID Qty: 90 0RF prednisone 20 mg tablet 40 mg PO BID 5 Days Qty: 20 0RF ydjuirmi-rdiutm-EZ-thonzonium 10 ML drops,suspension 2 drp OTIC BID meloxicam 15 MG tablet 15 mg PO DAILY aspirin 325 MG tablet 325 mg PO DAILY Qty: 14 0RF Rx Instructions: Take with breakfast starting 12/07 for 2 weeks Referrals Follow up/Referrals: Provider,Referral, MD [Primary Care Provider] - See instructions Activity Restrictions/Add. Instructions Additional Instructions/Restrictions: Drink plenty of fluids. Take tylenol or ibuprofen for pain or fever. Take the medications as directed. Follow up with your regular doctor. GO TO THE ER FOR ANY WORSENING SYMPTOMS Use the ear drops as directed. Clinical Impressions Clinical Impression: Acute viral syndrome, Otitis media Ear drum perforation Qualifiers: Laterality: right Qualified Code(s): H72.91 - Unspecified perforation of tympanic membrane, right ear Stand Alone Forms Stand Alone Forms: Work/School Release Instructions Patient Instructions: How to Instill Ear Drops, Middle Ear Infection, DI for Tympanic Membrane Perforation-Adult, DI for Viral Syndrome Discharge ED Provider: Luc Fitzgerald [facility] HPI General Stated complaint: body chills, headache Time Seen by Provider: 08/21/23 15:47 History of Present Illness Provider Complaint: He states that for the past 1 day he has had sore throat, ear pain, right ear drainage, fever, chills, and chest congestion. Related Data Home Medications Medication Instructions Recorded Confirmed meloxicam 15 mg tablet 15 mg PO DAILY Pain 12/04/21 07/29/23 [id number]-cmmgld-LM-thonzonm 3.3 2 drp OTIC BID Ear ache 12/04/21 07/29/23 mg-3 mg-10 mg-0.5 mg/mL ear drops,susp Previous Rx's Medication Instructions Recorded aspirin 325 mg tablet 325 mg PO DAILY #14 tabs 12/06/21 atorvastatin 10 mg tablet See Rx Instructions .Route 01/23/22 .COMPLEX Cholesterol #90 tabs cholecalciferol (vitamin D3) 1,250 1,250 mcg PO QWEEK Supplement #12 01/23/22 mcg (50,000 unit) capsule caps cholecalciferol (vitamin D3) 25 25 mcg PO DAILY Supplement #90 caps 01/23/22 mcg (1,000 unit) capsule lisinopril 10 mg tablet 10 mg PO DAILY High blood pressure 01/23/22 #90 tabs levofloxacin 500 mg tablet 500 mg PO DAILY #10 tabs 07/26/22 gabapentin 600 mg tablet 600 mg PO TID #90 tabs 07/30/22 hydrocodone 7.5 mg-acetaminophen 1 tab PO TID Pain #90 tabs 07/30/22 325 mg tablet prednisone 20 mg tablet 40 mg PO BID 5 days #20 tabs 07/07/23 celecoxib 200 mg capsule (Celebrex) 200 mg PO DAILY #30 caps 07/29/23 amoxicillin 875 mg-potassium 1 tab PO Q12H #20 tabs 08/21/23 clavulanate 125 mg tablet benzonatate 100 mg capsule 100 mg PO TIDP PRN Cough #30 caps 08/21/23 ciprofloxacin 0.3 %-dexamethasone 2 drp Ear-Right BID 7 days #1 ea 08/21/23 0.1 % ear drops,suspension methylprednisolone 4 mg tablets in 4 mg PO DIRECTED 6 days #21 tabs 08/21/23 a dose pack promethazine-DM 6.25 mg-15 mg/5 mL 5 ml PO Q6H PRN Cough #240 mL 08/21/23 oral syrup Allergies Allergy/AdvReac Type Severity Reaction Status Date / Time No Known Allergies Allergy Verified 07/29/23 13:21 [facility] Disclaimer: The information contained in this section may have been updated after the patient was seen, as this information can be updated by other users. 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 Social History Smoking Status: Current every day smoker tobacco type: cigarettes packs per day: 1 second hand exposure: Yes alcohol intake: never substance use type: marijuana current occupational status: employed Travel in the last 8 weeks: None housing: house current occupational exposures/hazards: No caffeine: Yes ROS Obtained: Yes All systems reviewed & no additional complaints except as documented Constitutional Constitutional: Reports chills and Reports fever(s) Eyes Eyes: Denies eye discharge ENT Ears, Nose, Mouth, and Throat: Reports as per HPI Cardiovascular Cardiovascular: Denies chest pain Respiratory Respiratory: Denies chest congestion and Reports cough Gastrointestinal Gastrointestingal: Reports nausea; Denies abdominal pain, constipation, cramping, diarrhea or vomiting Musculoskeletal Musculoskeletal: Denies arthralgias Integumentary/Breasts Skin/Breast: Denies rash Neurologic Neurologic: Denies paresthesias Physical Exam General General appearance: alert and in no apparent distress Head Head exam: atraumatic, normocephalic and normal inspection Eye Eye exam: Present normal appearance; Absent PERRL or EOMI ENT ENT exam: Present mucous membranes moist and normal external ear exam Expanded ENT Exam TM/Canal exam: Right TM: perforation and Bilateral TM: erythema, bulging and effusion Nose exam: Absent sinus tenderness Nasal speculum exam: Bilateral: normal Mouth exam: Present normal external inspection and other; Absent drooling Teeth exam: Present normal inspection Throat exam: Present tonsillar erythema and tonsillomegaly Neck Neck exam: Present normal inspection, full ROM and trachea midline; Absent tenderness, meningismus or lymphadenopathy Chest Chest inspection: Present normal inspection and symmetric chest wall rise; Absent tenderness Respiratory Respiratory exam: Present normal lung sounds bilaterally; Absent respiratory distress, wheezes or stridor Cardiovascular Cardiovascular exam: Present regular rate, normal rhythm and normal heart sounds; Absent tachycardia or irregular rhythm Abdominal Exam Abdominal exam: Present soft and normal bowel sounds; Absent distention, tenderness, guarding, rebound or rigidity Extremities Exam Extremities exam: Present normal inspection and normal capillary refill; Absent tenderness, joint swelling or calf tenderness Back Exam Back exam: Present normal inspection and full ROM; Absent tenderness, CVA tenderness (R) or CVA tenderness (L) Neurological Exam Neurological exam: Present alert, oriented X3, CN II-XII intact, normal gait and reflexes normal; Absent motor sensory deficit Psychiatric Psychiatric exam: Present normal affect and normal mood Skin Skin exam: Present warm, dry, intact and normal color Lymphatic Lymphatic Findings: no adenopathy Medical Decision Making Medical Records Medical records reviewed: No I reviewed the patient's medical records. Cb Inquiry Pt receiving controlled substance: No Lab Data Lab results reviewed: Yes I reviewed the patient's lab results.
[2023-08-21 16:10] LABS: Coronavirus 19, PCR Not Detected (NotDetected); Influenza A, PCR Not Detected (NotDetected); Influenza B, PCR Not Detected (NotDetected)
[2023-08-21 16:14] LABS: UTC Strep Screen (Rapid) Negative (Negative)
[2023-08-21 16:43] VITALS: BP 141/94; PULSE 90; RESP 18; TEMP 36.7; O2SAT 97
== END 2023-08-21 16:43 | disposition home or self-care (01) ==
PROVIDERS: Emergency Provider Nurse Practitioner Family
DX: H66.93 Otitis media, unspecified, bilateral (principal); H72.91 Unspecified perforation of tympanic membrane, right ear; R50.9 Fever, unspecified; R07.0 Pain in throat; R05.9 Cough, unspecified; R09.89 Other specified symptoms and signs involving the circulatory and respiratory systems; B34.9 Viral infection, unspecified; F17.210 Nicotine dependence, cigarettes, uncomplicated
CPT/HCPCS: 87636; 87880; 99212; 99214; G0463

== ENCOUNTER 2023-09-05 15:23 | Emergency (ER) | payer MEDICAID, SELFPAY ==
[2023-09-05 15:25] VITALS: BP 139/90; PULSE 97; RESP 18; TEMP 36.6; O2SAT 98; BMI 34.5
--- OUTSIDE RECORDS SUMMARY | 2023-09-05 15:47 | XMS_ITS ---
Care Plan - [facility] Created on: September 05, 2023 Musa Licea : 1975 Sex: Male Author Name Unknown Address [address] [place] [address] [place] [address] Phone Organization [facility] Address [address] [place] [address] Phone Care Team Providers Care Telegraphic Service Dispatcher Name Role Phone Laine Cardenas APRN Primary Care Provider [phone] Zoe SAINI, Ru Unavailable [phone]
--- OUTSIDE RECORDS SUMMARY | 2023-09-05 15:47 | XMS_ITS ---
Author Name Unknown Address [address] [place] [address] Phone Organization [facility] , [facility] Address [address] [place] [address] Phone Care Team Providers Care Weather Strip Mechanic Name Role Phone Laine Cardenas APRN Primary Care Provider [phone] Ru Enriquez MD Unavailable [phone] Problems Includes: Active, inactive, and resolved Problems All Visits Onset Date Resolved Date Provider Condition S tatus Joint Pain in the Left Knee 03/10/2023 Kenroy Johnson PA-C Active Plan of Treatment Instructions to patient Intervention and counseling on cessation of tobacco use Last Documented On 3 9:45AM ; [facility], [facility] Lose weight Last Documented On 3 9:46AM ; [facility], [facility] Assessments Includes: Assessments for all patient encounters Findings Encounter Date Overweight Physician Specified with Kenroy Jonhson PA-C 03/10/2023 Instructions Includes: Instructions for all patient encounters Instructions to patient Intervention and counseling on cessation of tobacco use Last Documented On 3 9:45AM ; [facility], [facility] Lose weight Last Documented On 3 9:46AM ; [facility], [facility] Medical Equipment - Implanted Devices Includes: Current and historical Devices No Medical Equipment Recorded Medications Includes: Current and historical Medications Current Medications (continue as prescribed) Acetaminophen 325 MG Oral Tablet 02/28/2023 Provider : Laine Cardenas APRN Diagnosis: Ibuprofen 600 MG Oral Tablet 02/28/2023 Provider: Laine Cardenas APRN Diagnosis: Methocarbamol 750 MG Oral Tablet 02/28/2023 Provider : Laine Cardenas APRN Diagnosis: Vivitrol 380 MG Intramuscula r Suspension Reconstituted 02/24/2023 Provider: Laine Cardenas APRN Diagnosis: Cetirizine HCl 10 MG Oral Tablet 02/03/2023 Provider : Laine Cardenas APRN Diagnosis: Natural Vitamin D-3 125 MCG (5000 UT) Oral Tablet 02/03/2023 Provider: Laine Cardenas APRN Diagnosis: Past Medications on file Meloxicam 15 MG Oral Tablet 03/10/2023 - 04/09/2023 Pr ovider: Kenroy Johnson PA-C Diagnosis: 1 every bedtime Voltaren 1% External Gel 03/10/2023 - 04/09/2023 Provi patt: Kenroy Johnson PA-C Diagnosis: three times a day Apply 4 gr ams to affected area 3 times a day Medications Administered Includes: Administered Medications in patient's chart No Administered Medications Recorded Vital Signs Includes: Vital Signs from 09/05/2022 through 09/05/2023 Vital Name 03/10/2023 09:45A Height (in) 71 Weight (lb) 250 Body Mass Index 34.9 Body Surface Area 2.3 Note: [facility] Last Documented: On 03/10/2023 9:45AM ; [facility], [facility] Results Includes: Results from 09/05/2022 through 09/05/2023 No Results Recorded For Specified Dates History of Present Illness History of Present Illness not supported for this document type No History of Present Illness Recorded Social History Description Last Updated Tobacco use 03/10/2023 Procedures and Surgical History Includes: Procedures from 09/05/2022 through 09/05/2023 Procedures Code Diagnosis Performing Provider Service Location Service Date DRAIN/INJECT, JOINT/BURSA (LEFT) Unilateral primary osteoarthritis, left knee Kenroy Johnson PA-C [facility] 03/10/2023 Medical History Includes: Medical History in patient's chart Description Last Updated Past medical and surgical history non-co ntributory 03/10/2023 Family History Includes: Family History in patient's chart Description Last Updated No significant family history 03/10/2023 Review of Systems Review of Systems not supported for this document type No Review of Systems Recorded Mental Status Description Anxiety Functional Status No Functional Status Recorded Physical Exam Physical Exam not supported for this document type No Physical Exam Recorded Allergies Includes: Active, inactive, and resolved Allergies No Known Allergies Encounters Includes: Encounters from 09/05/2022 through 09/05/2023 Encounter Provider Location Date Check-In Time Check-Out Time Diagnosis Physician Specified Kenroy Johnson PA-C [facility] 03/10/20 9:16AM 9:40AM Overweight Insurance Includes: Active Insurance Policies Plan Name Member ID Group # Subscriber Relationship Effect cornelius Dates 1 - [employer] MEDICA[employer] [id number] Musa Licea Self Clinical Notes Includes: Signed Clinical Notes starting from 07/04/2022 * Progress note Date Encounter Last Documented by 03/10/2023 Physician Specified Last parag quiroz on 03/12/2023; 11:02 AM, Kenroy Johnson PA-C; [facility], [facility] Active Problems & Conditions - Joint Pain in the Left Knee Chief Complaint The Chief Complaint is: L knee pain. Referred Here Referred by pcp. History of Present Illness Musa Licea is a 47 year old male. - Symptoms locking, popping. - Allergy list reviewed - Problem list reviewed - Medication list reviewed - Sharp pain Symptoms - Pain is occasional (25% of the time) - Pain is throbbing - Patient pain level from 1-10: 3 - Yes, previous treatment. - History of Physical Therapy - History of Home Exercise 47 year old male in today for left knee pain. He states that he has had pain in the knee for several months. He states that the majority of his pain is behind the knee. He states that the pain in the knee is effecting his day to day activity. He is not able to stand on the left knee for 30 min or longer. He would like to talk about his treatment options. Review of systems: All systems within normal limits with exception of left knee pain. The patient's medications, medication allergies, Past Medical and Surgical History, pertinent Family History, Social History and ten point Review of Systems was reviewed by me with the patient per the registration sheet dated today. It was then signed today and scanned into the electronic record. Physical Exam: CONSTITUTIONAL: Well developed, well groomed, well nourished patient in no acute distress who appears stated age, height and weight. PSYCHIATRIC: The patient is alert and oriented to person, place, date and situation. Mood and affect are normal for current situation. NEUROLOGICAL: Sensation normal bilateral upper and lower extremities. LYMPHATIC: No pitting edema noted in the lower extremities. SKIN: No lesions noted on upper or lower extremities. Skin is dry, warm and with normal turgor. VASCULAR: No swelling in upper or lower extremities other than described below in extremity exam. Dorsalis Pedis Pulses normal in lower extremities. GAIT AND STATION: Normal gait without assistive devices. Station normal. Musculoskeletal: 0-90 degrees ROM, medial joint line tenderness Imaging: MRI OF THE LEFT KNEE SHOWS 1. Insufficiency fracture of the lateral femoral condyle without depression. 2. complex tear of the posterior horn and posterior body of the medial meniscus. 3. Deformity of the lateral meniscus at the posterior horn and body. 4. Tri compartmental OA with joint effusion 5. 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 Assessment: Left knee OA Left knee LM and MM tear LEFT KNEE INJECTION: The risks of the procedure were explained and verbally knowledge by the patient. Verbal consent was obtained. The knee was prepped with Betadine and/or alcohol. The knee was then put in a flexed position in the intercondylar notch was palpated. With ethyl chloride spray used as topical anesthesia at the site of injection, the needle was gently introduced toward interchondral notch to get entering into the synovial cavity. Upon entering into the synovial cavity, 1 cc of Celestone and 4 cc of lidocaine was injected. The needle was carefully withdrawn and a Band-Aid was applied. The knee was then placed through a range of motion. PAST TREATMENT: Patient has failed all conservative measures including the following: Ice, anti inflammatory medication, general ROM Plan: At this time we have reviewed the MRI and he is understanding of the results. We talked about conservative measure and surgical measures. He is understanding that a TKA would be his only surgical option in the future. He is advised to ice the knee 2-3 times a day after high volume activity. At this time he would like to move forward with a injection in the left knee. We will see him back in 6 weeks. Current Medication - Acetaminophen 325 MG Oral Tablet 30 days, 0 refills - Cetirizine HCl 10 MG Oral Tablet 30 days, 0 refills - Ibuprofen 600 MG Oral Tablet 30 days, 0 refills - Methocarbamol 750 MG Oral Tablet 30 days, 0 refills - Natural Vitamin D-3 125 MCG (5000 UT) Oral Tablet 30 days, 0 refills - Vivitrol 380 MG Intramuscular Suspension Reconstituted 28 days, 0 refills Past Medical/Surgical History Past medical and surgical history non-contributory. Social History Yes, current smoker. Current diet: No recent change in diet. Caffeine use: Caffeine use. Tobacco use: Tobacco use. Alcohol: Not using alcohol. Drug Use: Not using drugs. Habits: Not exercising regularly. Allergies - No Known Allergies Family History No significant family history Review Of Systems Systemic: Not feeling tired, no recent weight loss, and no recent weight gain. Head: No headache and no sinus pain. Eyes: No vision problems and no Cataracts. Glasses/Contacts. No Glaucoma. Otolaryngeal: No hearing loss. Tinnitus. Cardiovascular: No chest pain or discomfort, no palpitations, no Hypertension, and no High Cholesterol. Pulmonary: No daytime asthma symptoms and no chronic cough. No wheezing. Gastrointestinal: No heartburn and no abdominal pain. No Indigestion, no Acid Reflux, no Peptic Ulcer, no GI Stomach Bleed, and no Ulcers. Endocrine: No hot flashes, no muscle weakness, no Diabetes, no Hypothyroid, and no Hyperthyroid. Hematologic: No easy bleeding, no tendency for easy bruising, and no Anemia. Musculoskeletal: Arthritis. No lower back pain. No soft tissue swelling. Pain localized to one or more joints. Neurological: No dizziness, no convulsions, and no numbness. Psychological: Anxiety. No emotional lability, no depression, and no insomnia. Not crying for no reason. Skin: No dry skin. No Ulcers, no Scars, and no rash. Allergic and Immunologic: No complaint of seasonal allergic reaction. Physical Findings - Vitals taken 03/10/2023 09:45 am [facility] Height 71 in Weight 250 lbs Body Mass Index 34.9 kg/m2 Body Surface Area 2.3 m2 Assessment - Overweight Previous Tests Imaging: X-Ray: An X-ray was performed. MRI Scan: An MRI was performed. Therapy - Intervention and counseling on cessation of tobacco use. Counseling/Education - Lose weight Plan StartCited - Other Meloxicam 15 MG tablet 1 every bedtime, 30 days, 0 refills Voltaren 1% gram three times a day Apply 4 grams to affected area 3 times a day, 30 days, 0 refills EndCited Notes transcribed by Pennie Acosta This dictation was done with voice recognition software and may contain errors and omissions. Practice Management Use of tobacco assessment performed Review of medications documented. Care Team - Laine Cardenas, FIRE TECHNOLOGY INSTRUCTOR
--- OUTSIDE RECORDS SUMMARY | 2023-09-05 15:48 | XMS_ITS | Clinical Summary ---
Author Name Unknown Address [address] [place] [address] Phone Organization [facility] , [facility] Address [address] [place] [address] Phone Care Team Providers Care Academic Counselor Name Role Phone Laine Cardenas APRN Primary Care Provider [phone] Ru Enriquez MD Unavailable [phone] Reason for Visit and Chief Complaint The Chief Complaint is: L knee pain Problems Includes: Problems addressed during this encounter and other active Problems Current Visit Onset Date Resolved Date Provider Darcy sparks Status Joint Pain in the Left Knee 03/10/2023 Kenroy Johnson PA-C Active Plan of Treatment Instructions to patient Intervention and counseling on cessation of tobacco use Last Documented On 3 9:45AM ; [facility], [facility] Lose weight Last Documented On 3 9:46AM ; [facility], [facility] Assessments Includes: Assessments from this encounter Findings - Overweight - Last Documented On 03/12/2023 11:02AM ; [facility], [facility] Instructions Includes: Instructions from this encounter Instructions to patient Intervention and counseling on cessation of tobacco use Last Documented On 3 9:45AM ; [facility], [facility] Lose weight Last Documented On 3 9:46AM ; [facility], [facility] Medical Equipment - Implanted Devices Includes: Current Devices No Medical Equipment Recorded Medications Includes: Medications discussed during this encounter and other current Medications New / Renewed during this visit Kenroy Johnson PA-C on 03/10/2023 Meloxicam 15 MG Oral Tablet Provider: Kenroy Rowland 30 day supply: 30 tablet, 0 refills Diagnosis: 1 every bedtime Pharmacy: [facility] - [address] [place] [address] Dr [address] , [facility], [id number] - Voltaren 1% External Gel Provider: Chrsitopher Johnson PA-C 30 day supply: 100 gram, 0 refills Diagnosis: three times a day Apply 4 gr ams to affected area 3 times a day Pharmacy: [address]aly , [facility], [id number] - Current Medications (continue as prescribed) Acetaminophen 325 [...] Tablet 02/03/2023 Provider: Laine Cardenas APRN Diagnosis: Medications Administered Includes: Administered Medications from this encounter No Administered Medications Recorded Vital Signs Includes: Vital Signs from this encounter Vital Name 03/10/2023 09:45A Height (in) 71 Weight (lb) 250 Body Mass Index 34.9 Body Surface Area 2.3 Note: [facility] Last Documented: On 03/10/2023 9:45AM ; [facility], [facility] Results Includes: Results discussed during this encounter No Results Recorded For Specified Dates History of Present Illness Includes: History of Present Illness from this encounter YANETH Licea is a 47 year old male. 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 Assessment: Left [...] will see him back in 6 weeks. Social History Description Last Updated Tobacco use 03/10/2023 Procedures and Surgical History Includes: Procedures from this encounter Procedures Code Diagnosis Performing Provider Service Location Service Date DRAIN/INJECT, JOINT/BURSA (LEFT) Unilateral primary osteoarthritis, left knee Kenroy Johnson PA-C [facility] 03/10/2023 Medical History Includes: Medical History addressed during this encounter Description Last Updated Past medical and surgical history non-co ntributory 03/10/2023 Family History Includes: Family History addressed during this encounter Description Last Updated No significant family history 03/10/2023 Review of Systems Includes: Review of Systems from this encounter Systemic: Not feeling tired, no recent weight [...] Immunologic: No complaint of seasonal allergic reaction. Mental Status Includes: Mental Status from this encounter Description Anxiety Functional Status Includes: Functional Status from this encounter No Functional Status Recorded Physical Exam Includes: Physical Exam from this encounter Allergies Includes: Active Allergies No Known Allergies Encounters Encounter Provider Location Date Check-In Time Check-Out Time Diagnosis Physician Specified Kenroy Johnson PA-C [facility] 03/10/20 9:16AM 9:40AM Overweight Insurance Includes: Active Insurance Policies Plan Name Member ID Group # Subscriber Relationship Effect cornelius Dates 1 - [employer] MED[employer] [id number] Musa Licea Self Clinical Notes Includes: Clinical Notes from this encounter * Progress note Date Encounter Last Documented by 03/10/2023 Physician Specified Last parag quiroz on 03/12/2023; 11:02 AM, Kenroy Johnson PA-C; [facility], [facility] Active Problems & Conditions - Joint 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 Assessment: Left [...] Findings - Vitals taken 03/10/2023 09:45 am [facility] Height 71 in Weight 250 lbs Body [...] days, 0 refills EndCited Notes transcribed by A Acosta This dictation was done with voice recognition software and may contain errors and omissions. Practice Management Use of tobacco assessment performed Review of medications documented. Care Team - Laine Cardenas APRN
--- OUTSIDE RECORDS SUMMARY | 2023-09-05 15:48 | XMS_ITS | Patient Health Record ---
Author Name Unknown Organization [facility], [place] Address [address] [place] [address] Care Team Providers Care Wood Patternmaker Name Role Phone Laine Cardenas Primary Care Provider GemInaer Unavailable [phone] Edna Olivares Unavailable [phone] ALLERGIES No Known Allergies REASON FOR REFERRAL Reason X-ray left knee, min imum 3 view Diagnosis 1 Left knee pain, unsp ecified chronicity (M25.562) Referral Organization [facility] Referring Provider First Name Laine Referring Provider Last Name Ronald Referring Provider Speciality Nurse Prac titioner Referred Provider Specialty Radiology General Notes Laine Cardenas 2022 02:12:45 PM > Order sent to Sienna via email. 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 Referral faxed. Info sent to Sienna with [facility]. Referral Priority Routine Referral Appointment Date 01/15/2023 Reason MRI left knee w/o co ntrast Auth# [id number] Approval Dates: 02/28/23 - 05/29/23 @ [facility]. Diagnosis 1 Sprain of anterior c ruciate ligament of left knee, sequela (S83.512S) Diagnosis 2 Left knee pain, unsp ecified chronicity (M25.562) Referral Organization [facility] Referring Provider First Name Laine Referring Provider Last Name Ronald Referring Provider Speciality Nurse Prac titioner Referred Provider Specialty Radiology General Notes Skyla Aguilar 02/28/2023 09:32:04 AM > Auth# [id number] Approval Dates: 02/28/23 - 05/29/23 @ [facility]. 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 Order faxed. Sienna notified. Referral Priority Routine Referral Appointment Date 03/05/2023 Reason Please refer to Giovanni [facility] for consult - MRI pending - left MCL and left meniscus tears repaired December 2021; persistent pain to left knee, 2 nights ago he twisted the knee and pain/immobility has been worse since. MRI Left Knee without contrast is scheduled for 03/05/23 @ [facility]. Diagnosis 1 Sprain of anterior c ruciate ligament of left knee, sequela (S83.512S) Diagnosis 2 Left knee pain, unsp ecified chronicity (M25.562) Diagnosis 3 History of torn meni scus of left knee (Z87.828) Referral Organization [facility] Referring Provider First Name Laine Referring Provider Last Name Ronald Referring Provider Speciality Nurse Prac titioner Referred Provider Specialty Orthopedic S urgery General Notes [facility]: [phone] / [phone]; [address], [place]., Skyla Aguilar 02/28/2023 09:46:08 AM > Faxed referral. Will send MRI once he has it completed on 03/05/23., Skyla Aguilar 03/05/2023 11:10:10 AM > Left VM for BG Rodriguez to return my call., Skyla Aguilar Olga 03/05/2023 03:18:23 PM > Patient is scheduled on 04/15/23 at 10:45 AM EST with Kenroy Johnson at the [place] location. ADD: [address], [place] [address]. All info sent to Sienna with [facility]., Skyla Aguilar Olga 03/06/2023 09:48:48 AM > Faxed MRI report., Skyla Aguilar Olga 03/06/2023 11:14:00 AM > After reviewing the MRI report, BG Rodriguez has moved the patient's appt to 03/10/23 at 9:30 AM EST. Info sent to Sienna with [facility]. Referral Priority Urgent Referral Appointment Date 03/10/2023 Reason Please refer to Dr. Baez, ENT, for consult - otalgia, recurrent AOM and AOE Diagnosis 1 Otitis externa, unsp ecified chronicity, unspecified laterality, unspecified type (H60.90) Diagnosis 2 Acute otitis media, bilateral (H66.93) Diagnosis 3 Otalgia of both ears (H92.03) Referral Organization [facility] Referring Provider First Name Laine Referring Provider Last Name Ronald Referring Provider Speciality Nurse Prac titioner Referred Provider Specialty Ear, nose an d throat surgeon General Notes Darcie Gallegos 04/22 11:26:09 AM >Pt is [facility] with [facility] at [facility] on 05/13/2023 @ 9:10am.Rosy Rhonda 04/22/2023 11:29:17 AM >Referral faxed., Darcie Gallegos 04/22/2023 11:36:50 AM >Called Sienna with [facility] and left message requesting a return call. Sienna notified of appt info. Referral Priority Routine Referral Appointment Date 05/13/2023 MEDICATIONS Medication SIG (Take, Route, Frequency, Duration) Notes Start Date End Date Status busPIRone HCl 7.5 MG 1 tablet Orally Twi ce a day for 30 days 11/15/2022 Active Vivitrol 380 mg INJECT 4ML INTRAMUSC ULARLY ONCE EVERY 28 DAYS for 28 Active Acetaminophen 325 mg TAKE TWO TABLETS EV ROLANDO SIX HOURS NEEDED FOR PAIN - ALTERNATE WITH IBUPROFEN -MAX FOUR PER DAY for 15 Active traZODone HCl 50 MG 1 tablet at bedtime as needed Orally Once a day for 30 days 11/15/2022 Active Natural Vitamin D-3 125 MCG (5000 UT) TAKE ONE TABLET DAILY for 30 Active Ibuprofen 600 mg TAKE 1 TABLET BY BRENDA TH EVERY 8 HOURS NEEDED WITH FOOD/MILK for 30 Active Methocarbamol 750 mg TAKE (1) TABLET BY MOUTH EVERY 8 HOURS NEEDED FOR MUSCLE SPASMS for 30 Active Cetirizine HCl 10 mg TAKE ONE TABLET CABRERA LY for 30 Active Nicotrol 10 mg Inhale (1) cartridge up to 16 times a day as needed as directed. for 30 Active Ciprofloxacin-dexAMETHaso ne 0.3-0.1 % 4 drops into left ear Otic Twice a day for 7 days 12/05/2022 Active Amoxicillin-Pot Clavulanate 875-125 MG 1 tablet Orally every 12 hrs for 10 days 11/22/2022 Active Vitamin B-12 1000 MCG TAKE ONE TABLET DA YENNIFER for 30 Active SOCIAL HISTORY Tobacco Use: Social History Observation Description Date Details (start date - stop date) Current Smoker NA - NA Sex Assigned At : Social History Observation Description Sex Assigned At Male Household Question Answer Notes Level of education: GED Tobacco Use/Smoking Question Answer Notes Are you a current smoker How many cigarettes a day do you smoke? 11-20 Alcohol Screen (Audit-C) Question Answer Notes Did you have a drink containing alcohol in the p ast year? 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) Active confirmed Nondepend ent alcohol abuse in remission (494684738) Problem Opioid abuse, in remission (F11.11) Active confirmed Nondepend ent opioid abuse in remission (785163652) Problem Hyperlipidemia (disorder) (E78.5) Active confirmed Hyperlipi demia (disorder) (61378946) Problem Allergic rhinitis (disorder) (J30.9) Active confirmed Allergic rhinitis (disorder) (13080825) Problem Vitamin D deficiency (E55.9) Active confirmed Vitamin D deficiency (26408466) Problem KRUNAL (generalized anxiety disorder) (F41.1) Active confirmed 49422012 Problem Insomnia, unspecified type (G47.00) Active confirmed 064707919 Problem Low back pain with radiation (M54.40) Active confirmed Sciatica (20968595) Problem 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 Temperature 97.6 degrees Fahrenheit 02/25/2023 VS o btained by Sienna Garvey LPN w/ [facility]. Respiratory Rate 16 /min 02/25/2023 VS obtained by Sienna Garvey LPN w/ [facility]. Oximetry 98 % 12/05/2022 Blood pressure diastolic 89 mm Hg 02/25/2023 VS obtained by Sienna Garvey LPN w/ [facility]. Height 71 in 12/05/2022 Blood pressure systolic 147 mm Hg 02/25/2023 VS o btained by Sienna Garvey LPN w/ [facility]. Weight 228.0 lbs 12/05/2022 BMI 31.8 kg/m2 12/05/2022 Encounters Encounter Location Date Provider Diagnosis [address] [address] 04/24/2023 [facility] [address] [place] [address] 11/15/2022 Edna Olivares Insomnia, unspecifie d type G47.00 ; KRUNAL (generalized anxiety disorder) F41.1 and Substance use disorder F19.[address] [address] 11/22/2022 Laine Cardenas Opioid abuse, in remission F11.11 ; Methamphetamine abuse in remission F15.11 ; Left knee pain, unspecified chronicity M25.562 ; Rupture of anterior cruciate ligament of left knee, subsequent encounter S83.512D ; Acute otitis media, bilateral H66.93 ; Otitis externa, unspecified chronicity, unspecified laterality, unspecified type H60.90 ; Elevated blood pressure reading R03.0 ; Nicotine dependence, cigarettes, uncomplicated F17.210 ; Substance abuse in remission F19.11 ; Other fatigue R53.83 ; Encounter for screening for other viral diseases Z11.59 ; Encounter for screening for endocrine disorder Z13.29 ; Encounter for screening for diabetes mellitus Z13.1 ; Encounter for screening for lipid disorder Z13.220 ; Screening for STD (sexually transmitted disease) Z11.3 and Prostate cancer screening Z12.[address] [address] 11/26/2022 Laine Cardenas Opioid abuse, in remission F11.[address] [address] 12/05/2022 Laine Cardenas Left knee pain, unspecified chronicity M25.562 ; Acute otitis externa of left ear, unspecified type H60.502 ; Hyperlipidemia (disorder) E78.5 ; Vitamin B12 deficiency E53.8 and Vitamin D deficiency E55.[address] [address] 12/24/2022 Laine Cardenas Left knee pain, unspecified chronicity M25.562 ; Low back pain with radiation M54.40 ; Allergic rhinitis (disorder) J30.9 and Substance abuse in remission F19.[address] [address] 01/28/2023 Laine Cardenas Substance abuse in remission F19.[address] [address] 02/20/2023 Laine Cardenas Sprain of anterior cruciate ligament of left knee, sequela S83.512S ; Posterior left knee pain M25.562 and History of torn meniscus of left knee Z87.[address] [address] 02/25/2023 Laine Cardenas Substance abuse in remission F19.[address] [address] 03/27/2023 Laine Cardenas Acute otitis externa of left ear, unspecified type H60.502 ; Acute otitis media, bilateral H66.93 and Substance abuse in remission F19.11 [facility] [address] [address] 11/22/2022 Laine Cardenas [facility] [address] [address] 02/27/2023 Laine Cardenas ASSESSMENTS Encounter Date Diagnosis Assessment Notes Treatment Notes Treatment Clinical Notes 11/22/2022 Opioid abuse, in remission (ICD-10 - F11.11) Will have Vivitrol and oral naltrexone sent to [facility] for Sienna to administer. 11/15/2022 KRUNAL (generalized anxiety disorder) (ICD-10 - F41.1) Encouraged healthy diet, exercise and regular sleep. Will start Buspar for anxiety. Side effects, risk, and benefits of medications discussed. Discussed safety plan. Encouraged pt. to continue therapy. Instructed pt. to notify clinic with any concerns or problems. Pt. verbalized understanding. 11/15/2022 Insomnia, unspecifie d type (ICD-10 - G47.00) Encouraged healthy diet, exercise and regular sleep. With pt.'s consent will strart Trazodone for sleep. Side effects, risk, and benefits of medications discussed. Discussed safety plan. Encouraged pt. to continue therapy. Instructed pt. to notify clinic with any concerns or problems. Pt. verbalized understanding. 11/22/2022 Methamphetamine abus e in remission (ICD-10 - F15.11) 11/26/2022 Opioid abuse, in remission (ICD-10 - F11.11) Risks and benefits of Vivitrol administration discussed with patient at last OV and again reviewed today. Written consent obtained, see documents. UDS obtained per [facility] and confirmed to be negative for opioids. Oral challenge (naltrexone 50mg) administered and patient monitored for 30 minutes by Sienna Garvey LPN; tolerated well without adverse s/e or signs of withdrawal. Vivitrol injection administered by Sienna Garvey and patient monitored for 15 minutes following injection; patient tolerated well without signs of adverse reaction or withdrawal (Lot # [id number]; Exp. 01/17/2025). Patient advised to notify close family member/support system of Vivitrol use and keep documentation in wallet indicating Vivitrol use in case of emergency. RTC approx. 28 days for next injection. He understands to contact our office promptly for adverse s/e, questions, or concern for relapse. Continue with counseling on a regular basis. 12/05/2022 Acute otitis externa of left ear, unspecified type (ICD-10 - H60.502) 12/05/2022 Left knee pain, unspecified chronicity (ICD-10 - M25.562) 12/24/2022 Low back pain with radiation (ICD-10 - M54.40) 12/24/2022 Left knee pain, unspecified chronicity (ICD-10 - M25.562) 01/28/2023 Substance abuse in remission (ICD-10 - F19.11) Patient continues to tolerate and do well on Vivitrol. UDS obtained, confirmed to be negative for opioids by [facility]. Vivitrol injection administered by Sienna Garvey LPN with [facility]. Continue with counseling on a regular basis. RTC approx. 28 days for next injection. Patient understands to contact our office promptly for adverse s/e of treatment, questions, or concern for relapse. Vivitrol Lot # [id number], expiration date: 05/20/2025 02/20/2023 Sprain of anterior cruciate ligament of left knee, sequela (ICD-10 - S83.512S) Rest joint; work note provided, see documents. Elevate and ice joint. Consider crutches to prevent pain/further injury from weight bearing. Counseled on red flag symptoms for which he should monitor. Will go ahead and order MRI to further evaluate and initiate referral to orthopedic surgeon. 02/20/2023 Posterior left knee pain (ICD-10 - M25.562) 02/25/2023 Substance abuse in remission (ICD-10 - F19.11) Patient continues to tolerate and do well on Vivitrol. UDS obtained, confirmed to be negative for opioids by [facility]. Vivitrol injection administered by Sienna Garvey LPN with [facility]. Continue with counseling on a regular basis. RTC approx. 28 days for next injection. Patient understands to contact our office promptly for adverse s/e of treatment, questions, or concern for relapse. Vivitrol Lot # [id number], expiration date:06/19/2025 03/27/2023 Acute otitis externa of left ear, unspecified type (ICD-10 - H60.502) 03/27/2023 Acute otitis media, bilateral (ICD-10 - H66.93) 02/20/2023 History of torn meniscus of left knee (ICD-10 - Z87.828) 12/24/2022 Allergic rhinitis (disorder) (ICD-10 - J30.9) 12/05/2022 Hyperlipidemia (disorder) (ICD-10 - E78.5) Reinforce heart healthy dietary efforts, including limiting fried/fatty foods, processed foods, sweets and sodas. Increase intake of lean proteins, healthy fats (fish, nuts, olive oils), fresh fruits and vegetables, fiber, and water. Increase physical activity to a goal of 30 minutes per day, 5 days per week. 11/15/2022 Substance use disorder (ICD-10 - F19.90) 11/22/2022 Left knee pain, unspecified chronicity (ICD-10 - M25.562) I have requested previous MRI. Once received, will plan to refer to orthopedic surgeon for consult. 11/22/2022 Rupture of anterior cruciate ligament of left knee, subsequent encounter (ICD-10 - S83.512D) 12/05/2022 Vitamin B12 deficiency (ICD-10 - E53.8) 03/27/2023 Substance abuse in remission (ICD-10 - F19.11) Patient continues to tolerate and do well on Vivitrol. UDS obtained, confirmed to be negative for opioids by [facility]. Vivitrol injection administered by Sienna Garvey LPN with [facility]. Continue with counseling on a regular basis. RTC approx. 28 days for next injection. Patient understands to contact our office promptly for adverse s/e of treatment, questions, or concern for relapse. 12/24/2022 Substance abuse in remission (ICD-10 - F19.11) Patient continues to tolerate and do well on Vivitrol. UDS obtained, confirmed to be negative for opioids by [facility]. Vivitrol injection administered by Sienna Garvey LPN with [facility]. Continue with counseling on a regular basis. RTC approx. 28 days for next injection. Patient understands to contact our office promptly for adverse s/e of treatment, questions, or concern for relapse. Marielenal lot: [id number], exp: 03/20/2025 12/05/2022 Vitamin D deficiency (ICD-10 - E55.9) 11/22/2022 Acute otitis media, bilateral (ICD-10 - H66.93) 11/22/2022 Otitis externa, unspecified chronicity, unspecified laterality, unspecified type (ICD-10 - H60.90) 11/22/2022 Elevated blood pressure reading (ICD-10 - R03.0) 11/22/2022 Nicotine dependence, cigarettes, uncomplicated (ICD-10 - F17.210) 11/22/2022 Substance abuse in remission (ICD-10 - F19.11) 11/22/2022 Other fatigue (ICD-1 0 - R53.83) 11/22/2022 Encounter for screening for other viral diseases (ICD-10 - Z11.59) 11/22/2022 Encounter for screening for endocrine disorder (ICD-10 - Z13.29) 11/22/2022 Encounter for screening for diabetes mellitus (ICD-10 - Z13.1) 11/22/2022 Encounter for screening for lipid disorder (ICD-10 - Z13.220) 11/22/2022 Screening for STD (sexually transmitted disease) (ICD-10 - Z11.3) 11/22/2022 Prostate cancer screening (ICD-10 - Z12.5) 12/24/2022 Other Total time spen t during televisit: 10 minutes 01/28/2023 Other Total time spen t during televisit: 5 minutes 02/20/2023 Other Total time spen t during televisit: 12 minutes 02/25/2023 Other Total time spen t during televisit: 10 minutes 03/27/2023 Other Total time spen t during televisit: 10 min. PLAN OF TREATMENT Pending Test Test Name Order Date Vitamin B12 and Folate 11/22/2022 Hemoglobin A1c 11/22/2022 CBC With Differential/Platelet Hep B Surface Ab 11/22/2022 HBsAg Screen 11/22/2022 Hep B Core Ab, Tot 11/22/2022 Hep A Ab, IgM 11/22/2022 Prostate-Specific Ag, Serum 11/22/2022 Hep B Core Ab, IgM 11/22/2022 Vitamin D, 25-Hydroxy 11/22/2022 Panel [id number] 11/22/2022 Albumin/Creatinine Ratio,Urine 3 Trich vag by JAKOB 11/22/2022 Chlamydia trachomatis, JAKOB 11/22/2022 Neisseria gonorrhoeae, JAKOB 11/22/2022 Lipid Panel 11/22/2022 Comp. Metabolic Panel (14) 11/22/2022 HCV RT-PCR, Quant (Non-Graph) 11/22/2022 T3F+T4F+TSH 11/22/2022 Insurance Providers Payer Name Payer Address Payer Phone Subscriber Number Group Number Insured Name Patient Relationship to Insured Coverage Start Date Coverage End Date [employer] [address] [address] [place] [address] [id number] Musa Licea Self - patient is the insured 0 MEDICATIONS ADMINISTERED Medication Instructions Date of Administration Dosage Notes Vitamin B12 12/05/2022 MEDICAL (GENERAL) HISTORY Medical History History ICD Code left MCL and meniscus repaired anxiety substance abuse Surgical History Surgery Date(Month/Year) MCL and Meniscus surgery Hospitalization History Reason Date(Month/Year) Surgeries
--- NOTE | 2023-09-05 15:55 | ED_ITS ---
Discharge Plan Disposition Patient Disposition: Home, Self-Care Chief Complaint: Eye Problems Prescriptions Prescriptions: No Action levofloxacin 500 mg tablet 500 mg PO DAILY Qty: 10 0RF celecoxib [Celebrex] 200 mg capsule 200 mg PO DAILY Qty: 30 2RF atorvastatin 10 mg tablet See Rx Instructions .Route .COMPLEX Qty: 90 0RF Rx Instructions: TAKE ONE TABLET BY MOUTH EVERY DAY FOR CHOLESTEROL cholecalciferol (vitamin D3) 1,250 mcg (50,000 unit) capsule 1,250 mcg PO QWEEK Qty: 12 1RF cholecalciferol (vitamin D3) 25 mcg (1,000 unit) capsule 25 mcg PO DAILY Qty: 90 0RF lisinopril 10 mg tablet 10 mg PO DAILY Qty: 90 0RF gabapentin 600 mg tablet 600 mg PO TID Qty: 90 0RF hydrocodone-acetaminophen 7.5-325 mg tablet 1 tab PO TID Qty: 90 0RF prednisone 20 mg tablet 40 mg PO BID 5 Days Qty: 20 0RF promethazine-DM 6.25-15 mg/5 mL Syrup 5 ml PO Q6H PRN (Reason: Cough) Qty: 240 0RF benzonatate [benzonatate] 100 mg capsule 100 mg PO TIDP PRN (Reason: Cough) Qty: 30 0RF methylprednisolone 4 mg Tablets,Dose Pack 4 mg PO DIRECTED 6 Days Qty: 21 0RF Rx Instructions: Take 1 pack as directed for 6 days amoxicillin-pot clavulanate 875-125 mg Tablet 1 tab PO Q12H Qty: 20 0RF ciprofloxacin-dexamethasone 0.3-0.1 % Drops,Suspension 2 drp Ear-Right BID 7 Days Qty: 1 0RF cpftzkbf-srcjii-TH-thonzonium 10 ML drops,suspension 2 drp OTIC BID meloxicam 15 MG tablet 15 mg PO DAILY aspirin 325 MG tablet 325 mg PO DAILY Qty: 14 0RF Rx Instructions: Take with breakfast starting 12/07 for 2 weeks Referrals Follow up/Referrals: Shahram Ovalles DO [Primary Care Provider] - See instructions Activity Restrictions/Add. Instructions Additional Instructions/Restrictions: Call your family doctor to establish care for this visit to the emergency department and schedule follow-up within 48 hours to ensure improvement. If you have any worsening of your condition or any other concerning signs or symptoms, return to the emergency department or your primary care doctor for further evaluation. Clinical Impressions Clinical Impression: Foreign body in eyeball, right Discharge ED Provider: Daniel Burnett General Adult HPI General Chief complaint: Eye Problems Stated complaint: AO right eye irritation, possible metal in eye Time Seen by Provider: 09/05/23 15:28 Mode of Arrival: Ambulatory Source of Information: Patient Limitations: No Limitations Description of Symptoms (Recalled from ER Triage Doc. by RN): Patient reports that he thinks he got a piece of metal in his right eye on Friday or Friday. 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 Happened 4 days prior to this visit. Has put it off until today. No vision changes, but it is painful and photosensitive. Has a family history of glaucoma, but has never been diagnosed with himself. Last tetanus shot was 3 years ago. Related Data Home Medications Medication Instructions Recorded Confirmed meloxicam 15 mg tablet 15 mg PO DAILY Pain 12/04/21 07/29/23 itydjjig-ddizwm-KM-thonzonm 3.3 2 drp OTIC BID Ear ache 12/04/21 07/29/23 mg-3 mg-10 mg-0.5 mg/mL ear drops,susp Previous Rx's Medication Instructions Recorded aspirin 325 mg tablet 325 mg PO DAILY #14 tabs 12/06/21 atorvastatin 10 mg tablet See Rx Instructions .Route 01/23/22 .COMPLEX Cholesterol #90 tabs cholecalciferol (vitamin D3) 1,250 1,250 mcg PO QWEEK Supplement #12 01/23/22 mcg (50,000 unit) capsule caps cholecalciferol (vitamin D3) 25 25 mcg PO DAILY Supplement #90 caps 01/23/22 mcg (1,000 unit) capsule lisinopril 10 mg tablet 10 mg PO DAILY High blood pressure 01/23/22 #90 tabs levofloxacin 500 mg tablet 500 mg PO DAILY #10 tabs 07/26/22 gabapentin 600 mg tablet 600 mg PO TID #90 tabs 07/30/22 hydrocodone 7.5 mg-acetaminophen 1 tab PO TID Pain #90 tabs 07/30/22 325 mg tablet prednisone 20 mg tablet 40 mg PO BID 5 days #20 tabs 07/07/23 celecoxib 200 mg capsule (Celebrex) 200 mg PO DAILY #30 caps 07/29/23 amoxicillin 875 mg-potassium 1 tab PO Q12H #20 tabs 08/21/23 clavulanate 125 mg tablet benzonatate 100 mg capsule 100 mg PO TIDP PRN Cough #30 caps 08/21/23 ciprofloxacin 0.3 %-dexamethasone 2 drp Ear-Right BID 7 days #1 ea 08/21/23 0.1 % ear drops,suspension methylprednisolone 4 mg tablets in 4 mg PO DIRECTED 6 days #21 tabs 08/21/23 a dose pack promethazine-DM 6.25 mg-15 mg/5 mL 5 ml PO Q6H PRN Cough #240 mL 08/21/23 oral syrup Allergies Allergy/AdvReac Type Severity Reaction Status Date / Time No Known Allergies Allergy Verified 07/29/23 13:[address] [facility] Disclaimer: The information contained in this section may have been updated after the patient was seen, as this information can be updated by other users. 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 Social History Smoking Status: Current every day smoker tobacco type: cigarettes packs per day: 1 second hand exposure: Yes alcohol intake: never substance use type: marijuana current occupational status: employed Travel in the last 8 weeks: None housing: house current occupational exposures/hazards: No caffeine: Yes ROS Obtained: Yes All systems reviewed & no additional complaints except as documented Physical Exam General General appearance: alert and in no apparent distress Head Head exam: atraumatic and normocephalic Eye Eye exam: Present normal appearance, PERRL, EOMI, conjunctival redness and other (No evidence of hyphema, proptosis, entrapment, conjunctival hemorrhage, pupillary changes, cellulitic change, obvious foreign body, or otherwise irregular ocular findings. Fluorescein staining with focal uptake 8 o'clock position overlying the iris..) ENT ENT exam: Present mucous membranes moist Neck Neck exam: Present normal inspection, full ROM and trachea midline Respiratory Respiratory exam: Absent respiratory distress, wheezes, stridor, accessory mus carolee use or prolonged expiratory phase Cardiovascular Cardiovascular exam: Present normal rhythm Abdominal Exam Abdominal exam: Present soft; Absent distention, tenderness, guarding, rebound or rigidity Extremities Exam Extremities exam: Absent edema Neurological Exam Neurological exam: Present alert, oriented X3, CN II-XII intact and normal gait; Absent motor sensory deficit Skin Skin exam: Present warm and dry; Absent diaphoresis or erythema Medical Decision Making Medical Records Medical records reviewed: Yes I reviewed the patient's medical records. 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 Happened 4 days prior to this visit. Has put it off until today. No vision changes, but it is painful and photosensitive. Has a family history of glaucoma, but has never been diagnosed with himself. Last tetanus shot was 3 years ago. History obtained with patient. Physical exam significant for well- appearing male no acute distress. Normotensive, nontachycardic. Intraocular pressure 16 mmHg. Pupils equal and reactive. Photosensitivity no longer present after application of topical anesthetic. No evidence of hyphema, proptosis, entrapment, conjunctival hemorrhage, pupillary changes, cellulitic change, obvious foreign body, or otherwise irregular ocular findings. Fluorescein exam with focal uptake and small foreign body 8 o'clock position on iris. This was removed with insulin needle. Patient was given erythromycin ointment for home-going. Because patient at baseline without signs or symptoms of clinical decompensation, deemed appropriate for discharge. Results were relayed to patient who voiced understanding and were agreeable to outpatient management and follow up. At the time of discharge the patient was hemodynamically stable, tolerating PO, and mobilizing appropriately.. Procedures Eye Exam/FB Removal Location: eye (R) Topical anesthetic used: tetracaine Fluorescein Stick(s) used: Yes Time Out performed: No Procedure performed under: direct visualization with magnification Foreign body: metal Evidence of corneal penetration: No Technique: irrigation and needle Post-procedure medication: ophthalmic antibiotic and topical anesthetic Patient tolerated procedure: well Critical Care Critical Care Time Critical Care Time: No
[2023-09-05 16:01] VITALS: BP 139/90; PULSE 97; RESP 18; TEMP 36.6; O2SAT 98
== END 2023-09-05 16:03 | disposition home or self-care (01) ==
PROVIDERS: Emergency Provider Emergency Medicine; PCP Internal Medicine
DX: S05.51XA Penetrating wound with foreign body of right eyeball, initial encounter (principal); W45.8XXA Other foreign body or object entering through skin, initial encounter; F17.210 Nicotine dependence, cigarettes, uncomplicated
CPT/HCPCS: 65220; 99283

== ENCOUNTER 2023-10-10 14:05 | Outpatient (CLI) | payer MEDICAID, SELFPAY ==
[2023-10-10 12:14] LABS: Basophils # 0.1 K/mm3 (0-0.2); Basophils % 1.1 % (0.1-2.0); Eosinophils # 0.2 K/mm3 (0.0-0.4); Eosinophils % 1.9 % (0.1-12.0); Hematocrit 49.4 % (42.0-52.0); Hemoglobin 16.4 g/dL (14.1-18.0); Lymphocytes % 20.4 % (10-50); Mean Corpuscular HGB Conc 33.1 g/dL (31.8-35.4); Mean Corpuscular Hemoglobin 31.8 pg (27.0-31.2); Monocytes # 0.6 K/mm3 (0.1-1.0); Monocytes % 5.7 % (1.7-9.3); Neutrophils # 7.1 K/mm3 (1.8-7.8); Neutrophils % 70.9 % (37.0-80.0); Platelet Count 190 K/mm3 (142-424); Red Blood Count 5.15 M/mm3 (4.60-6.20); Red Cell Distribution Width 14.4 % (11.5-17.5)
[2023-10-10 12:15] LABS: Chloride 107 mmol/L (98-107)
[2023-10-10 12:16] LABS: Potassium 3.9 mmoL/L (3.5-5.1); Sodium 139 mmol/L (136-145)
[2023-10-10 12:18] LABS: Blood Urea Nitrogen 12 mg/dl (9-20); Estimated Glomerular Filt Rate 119 ml/min (>60); GFR (African American) 144 ML/MIN (>60)
[2023-10-10 12:19] LABS: Alanine Aminotransferase 21 U/L (12-78); Albumin Level 4.1 g/dl (3.5-5.0); Albumin/Globulin Ratio 1.5 (1.1-1.8); Alkaline Phosphatase 103 U/L (38-126); Anion Gap 10.9 mEq/L (5-15); Aspartate Amino Transferase 25 U/L (17-59); Bilirubin,Total 0.6 mg/dl (0.2-1.3); Calcium 9.1 mg/dl (8.4-10.2); Carbon Dioxide 25 mmol/L (22.0-30.0); Chol/HDL Ratio 6.4 (1-3.5); Cholesterol 223 mg/dl (140-200); Globulin 2.8 g/dL (1.3-3.2); Glucose 106 mg/dl (74-100); HDL Cholesterol 35 mg/dl (40-60); Total Protein,Serum 6.9 g/dl (6.3-8.2); Triglycerides 139 mg/dl (30-150); VLDL Cholesterol 28 mg/dL (0-40)
[2023-10-10 12:30] LABS: Direct LDL Cholesterol 137.95 mg/dL (100-129)
[2023-10-10 12:49] LABS: Prostate Specific Ag Screen 0.5 ng/ml (0.0-4.0)
[2023-10-10 13:50] LABS: Hemoglobin A1C 5.6 % (4.0-6.0)
== END 2023-10-10 23:59 ==
LOC: LAB.DROPOF 14:05
PROVIDERS: PCP Family Medicine; Visit Provider Family Medicine
DX: R53.83 Other fatigue (principal); I10 Essential (primary) hypertension; N50.819 Testicular pain, unspecified; E66.9 Obesity, unspecified; Z68.37 Body mass index [BMI] 37.0-37.9, adult; Z72.0 Tobacco use; Z79.899 Other long term (current) drug therapy; Z12.5 Encounter for screening for malignant neoplasm of prostate
CPT/HCPCS: 80053; 80061; 83036; 85025; G0103

== ENCOUNTER 2023-11-12 18:00 | Outpatient (CLI) | payer MEDICAID, SELFPAY | END 2023-11-12 23:59 | disposition home or self-care (01) | LOC: LAB.DROPOF 11-13 09:50 | PROVIDERS: PCP Family Medicine; Visit Provider Family Medicine | DX: H92.02 Otalgia, left ear (principal); B96.5 Pseudomonas (aeruginosa) (mallei) (pseudomallei) as the cause of diseases classified elsewhere; B95.62 Methicillin resistant Staphylococcus aureus infection as the cause of diseases classified elsewhere | CPT/HCPCS: 87070 ==

== ENCOUNTER 2023-11-14 10:04 | Outpatient (CLI) | payer MEDICAID, SELFPAY ==
--- NOTE | 2023-11-14 10:04 | US_ITS ---
FINAL REPORT TECHNIQUE: Sonographic images of the testicles and scrotum were obtained in the longitudinal and transverse planes. CLINICAL HISTORY: Right testicular pain for 2 months. COMPARISON: None FINDINGS: The right testicle measures 4.8 centimeters. There is no intratesticular mass. The epididymis is within normal limits. There is a large hydrocele with septations present in the right scrotum of uncertain chronicity and etiology. There are microcalcifications present in the testicle. The left testicle measures 4 centimeters. There is no intratesticular mass. The epididymis is within normal limits. A small hydrocele is present on the left. There are microcalcifications present in the testicle. Color imaging reveals no evidence of testicular torsion. IMPRESSION: Large hydrocele of the right scrotum as described. There is a smaller hydrocele present in the left scrotum as well. Microcalcifications are present in the testicles bilaterally. Reviewed, Interpreted and Dictated by Sami Skaggs MD Transcribed by Falguni Valdivia Authenticated and [facility]
== END 2023-11-14 23:59 | disposition home or self-care (01) ==
LOC: RAD 10:04
PROVIDERS: PCP Family Medicine; Visit Provider Family Medicine
DX: N50.811 Right testicular pain (principal); N50.812 Left testicular pain
CPT/HCPCS: 76870

== ENCOUNTER 2023-12-22 09:55 | Emergency (ER) | payer MEDICAID, SELFPAY ==
[2023-12-22 10:04] VITALS: BP 171/89; PULSE 80; RESP 20; TEMP 36.4; O2SAT 99; BMI 25.3
--- NOTE | 2023-12-22 10:11 | [facility].EDGENADL ---
Discharge Plan Disposition Patient Disposition: Home, Self-Care Prescriptions Prescriptions: New doxycycline hyclate 100 mg capsule 100 mg PO BID 10 Days Qty: 20 0RF No Action ropinirole 1 mg tablet 1 mg PO DAILY Qty: 30 2RF cetirizine [All Day Allergy (cetirizine)] 10 mg tablet 10 mg PO DAILY PRN (Reason: allergy symptoms) Qty: 30 0RF azelastine 137 mcg (0.1 %) aerosol,spray 137 mcg intranasal BID Qty: 30 2RF Rx Instructions: administer into each nostril buprenorphine-naloxone 8-2 mg tablet, sublingual 2 tab sublingual DAILY bupropion HCl [Wellbutrin SR] 150 mg tablet sustained-release 12 hr 150 mg PO DAILY Qty: 30 2RF lisinopril 10 mg tablet 10 mg PO DAILY Qty: 30 2RF tobramycin-dexamethasone [TobraDex] 0.3-0.1 % drops,suspension 2 drp ophthalmic (eye) BID 10 Days Qty: 5 0RF Rx Instructions: Patient to use in BILATERAL EARS Referrals Follow up/Referrals: Dori Perez APRN [Primary Care Provider] - See instructions Activity Restrictions/Add. Instructions Additional Instructions/Restrictions: Your symptoms are most likely secondary to a staph infection no localized drainable fluid collection was identified on bedside ultrasound and antibiotic should cure this. You should notice an improvement in 48 to 72 hours return the emergency department any significant or severe spreading of the redness high fevers or other concerns. Clinical Impressions Clinical Impression: Cellulitis of right thigh Discharge ED Provider: Joi Licea General Adult HPI General Stated complaint: spider bite on leg W/ discharge congestion chills Time Seen by Provider: 12/22/23 09:58 History of Present Illness HPI narrative: Patient is a 48-year-old male presenting today with some skin lesions. Particular on the posterior aspect of his right thigh stated he noted this on Friday heavy painful. Also noticed that it spontaneously drained some blood and some purulent debris. Has some other smaller areas of erythema and inflammation on the medial aspect of his right thigh. No fevers or chills no antibiotic allergies no other significant past medical problems. Related Data Home Medications Medication Instructions Recorded Confirmed buprenorphine 8 mg-naloxone 2 mg 2 tab sublingual DAILY 10/10/23 11/26/23 sublingual tablet Previous Rx's Medication Instructions Recorded bupropion HCl 150 mg tablet,12 hr 150 mg PO DAILY #30 ea 10/10/23 sustained-release (Wellbutrin SR) lisinopril 10 mg tablet 10 mg PO DAILY #30 tabs 10/10/23 azelastine 137 mcg (0.1 %) nasal 137 mcg (0.137 mL) intranasal BID 11/12/23 spray aerosol #30 mL cetirizine 10 mg tablet (All Day 10 mg PO DAILY PRN allergy 11/12/23 Allergy (cetirizine)) symptoms #30 tabs ropinirole 1 mg tablet 1 mg PO DAILY #30 tabs 11/12/23 tobramycin 0.3 %-dexamethasone 0.1 2 drp ophthalmic (eye) BID 10 days 11/26/23 % eye drops,suspension (TobraDex) #5 mL doxycycline hyclate 100 mg capsule 100 mg PO BID 10 days #20 caps 12/22/23 Allergies Allergy/AdvReac Type Severity Reaction Status Date / Time No Known Allergies Allergy Verified 11/26/23 11:43 [facility] Disclaimer: The information contained in this section may have been updated after the patient was seen, as this information can be updated by other users. 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 Social History Smoking Status: Current every day smoker tobacco type: cigarettes packs per day: 1 second hand exposure: Yes alcohol intake: never substance use type: marijuana current occupational status: employed Travel in the last 8 weeks: None housing: house current occupational exposures/hazards: No caffeine: Yes ROS Obtained: Yes All systems reviewed & no additional complaints except as documented Physical Exam General General appearance: alert and in no apparent distress Respiratory Respiratory exam: Present normal lung sounds bilaterally and respiratory distress Cardiovascular Cardiovascular exam: Present regular rate and normal rhythm Abdominal Exam Abdominal exam: Present soft and distention Back Exam Back 1 view image: 1. Area of erythema with central umbilication no active purulent drainage Neurological Exam Neurological exam: Present alert and oriented X3 Medical Decision Making Cb Inquiry Pt receiving controlled substance: No Orders (Tests/Meds): ED MEDICATIONS Discontinued Medications Generic Name Dose Route Start Last Admin Trade Name Marsha PRN Reason Stop Dose Admin Doxycycline Hyclate 100 mg 12/22/23 10:09 Doxycycline Hycl 100 Mg Tablet PO 12/22/23 10:10 ONCE ONE ORDERS Category Date Time Status POCUS Point of Care (ER Only) Stat Exams 12/22/23 10:05 Ordered Medical Decision Narrative: 48-year-old male systemically well nontoxic in appearance presenting today with abscess for cellulitis in the posterior aspect of his right thigh. Also has some very small areas of cellulitis on the right medial aspect of his thigh is almost likely consistent with a staph infection particular given the history of purulent debris. Bedside ultrasound was done which did not demonstrate any type of significant advanced fluid collection or anything that would be drainable. He does have clinically superficial cellulitis will treat with doxycycline to cover for staph. Return precautions emphasized patient has been advised to complete his entire course of antibiotics regardless of how quickly he resolves his symptoms. Procedures Miscellaneous Procedure Procedure Performed: Limited soft tissue ultrasound Indication: Soft tissue swelling and redness Identified structures: Location: Posterior right thigh Findings: No significant cobblestoning, localizable fluid collection or tracking fluid Impression: Normal soft tissue ultrasound Images were saved to permanent archive The study was technically adequate Soft Tissue CPT Codes: CPT Lower Extremity: 28060-75 This study was performed by me, and I personally interpreted all images/videos. Based on my clinical judgement, these images were adequate and did not necessitate further imaging. Critical Care Critical Care Time Critical Care Time: No
[2023-12-22] MEDS: DOXYCYCLINE HYCL 100 MG TABLET PO (10:13)
[2023-12-22 10:18] VITALS: BP 140/92; PULSE 79; RESP 16; TEMP 36.4; O2SAT 98
== END 2023-12-22 10:27 | disposition home or self-care (01) ==
PROVIDERS: Emergency Provider Student in an Organized Health Care Education/Training Program; PCP Family Medicine
DX: L03.115 Cellulitis of right lower limb (principal); F17.210 Nicotine dependence, cigarettes, uncomplicated
CPT/HCPCS: 99284

== ENCOUNTER 2025-05-13 09:32 | Outpatient (CLI) | payer MEDICAID, SELFPAY ==
--- OUTSIDE RECORDS SUMMARY | 2025-01-26 07:30 | XMS_ITS ---
Author Organization [facility], [place] Address [address] [place] [address] Care Team Providers Care Master Automotive Technician Name Role Phone Franklin Styles Primary Care Provider Maureen Oliver Unavailable [phone] Allergies No Known Allergies REASON FOR VISIT [facility] 3 week Medications Medication SIG [...] Negative Encounters Encounter Location Date Provider Diagnosis [address] [place] [address] 01/26/2025 Maureen Oliver Anxiety F41.9 and Substance [...] Provider Name:Maureen Oliver , 05/26/2025 09:15:00 AM, [address] [place] [address], [place], [address], Progress Notes * Musa LICEA ADOB:[birth year] (50 yo M)Acc No.[id number]:01/26/2025 Psych Telehealth Patient: Musa ELIZALDE Provider: Kiet Oliver APRN :1975 A ge:49 Y S ex:Male Date:01/26/2025 Address:[address] [place], [place] [id number] Pcp:Franklin Styles Subjective: * Chief Complaints: * [...] MCL and meniscus repaired, Anxiety, Substance abuse, [place]. * Surgical History: M CL and Meniscus [...] * Images: Billing Information: * Visit Code: 43927 Office Visit, Est Pt., Level 3. 32157 Medication Management. * Procedure Codes: * Electronic signature of Kim Oliver APRN on 05/16/2025 at 09:45 AM EDT Sign off status: Pending Visit Status: R /S (Rescheduled) * Provider: Kiet Oliver APRN Date: 0 01/26/2025 Generated for Rosangela beth/Charlotte/Trino on: 1 09:45 AM EDT History and Physical Notes * Examination Category [...]
[2025-05-13 15:02] LABS: Hematocrit 47.4 % (42.0-52.0); Hemoglobin 16.2 g/dL (14.1-18.0); Immature Granulocytes % 0.5 %; Mean Corpuscular HGB Conc 34.2 g/dL (31.8-35.4); Mean Corpuscular Hemoglobin 31.5 pg (27.0-31.2); Mean Corpuscular Volume 92.0 fl (80-94); Nucleated Red Blood Cells % 0 %; Platelet Count 200 K/mm3 (142-424); Red Blood Count 5.15 M/mm3 (4.60-6.20); Red Cell Distribution Width-SD 44.6 fL; White Blood Count 9.5 K/mm3 (4.8-10.8)
[2025-05-13 15:06] LABS: Albumin Level 4.0 g/dl (3.5-5.0); Chloride 105 mmol/L (98-107); Potassium 4.3 mmoL/L (3.5-5.1); Sodium 135 mmol/L (136-145)
[2025-05-13 15:09] LABS: Alanine Aminotransferase 23 U/L (12-78); Albumin/Globulin Ratio 1.2 (1.1-1.8); Alkaline Phosphatase 98 U/L (38-126); Anion Gap 9.3 mEq/L (5-15); Aspartate Amino Transferase 23 U/L (17-59); Bilirubin,Total 0.8 mg/dl (0.2-1.3); Blood Urea Nitrogen 12 mg/dl (9-20); Calcium 8.7 mg/dl (8.4-10.2); Carbon Dioxide 25 mmol/L (22.0-30.0); Cholesterol 136 mg/dl (140-200); Creatinine,Serum 0.90 mg/dl (0.66-1.25); Estimated Glomerular Filt Rate 89 ml/min (>60); GFR (African American) 107 ML/MIN (>60); Globulin 3.3 g/dL (1.3-3.2); Glucose 103 mg/dl (74-100); Total Protein,Serum 7.3 g/dl (6.3-8.2); Triglycerides 111 mg/dl (30-150)
[2025-05-13 15:10] LABS: HDL Cholesterol 39 mg/dl (40-60)
[2025-05-13 15:13] LABS: Hemoglobin A1C 5.8 % (4.0-6.0)
[2025-05-13 15:25] LABS: 25-OH Vitamin D, Total 40.8 ng/mL (30-100)
[2025-05-13 15:40] LABS: Thyroid Stimulating Hormone 1.26 uIU/mL (0.465-4.68)
--- OUTSIDE RECORDS SUMMARY | 2025-05-16 09:43 | XMS_ITS | Data Portability ---
Author Organization [facility] [place] [facility] ADMIN Address [address] [place] [address] Assessment No assessment recorded. Plan of Treatment Reminders Order Date Submit Date Provider Last Modified By Organization Details Last Modified Time Details Appointments None recorded. Lab None recorded. Referral None recorded. Procedures None recorded. Surgeries None recorded. Imaging US, scrotum 2024 025 [email or web address] [facility], [address] [place] [address] , [place], [address], 5 09:19:12 Medication Orders Bactrim DS 800 mg-160 mg tablet 2024 025 [email or web address] [facility], [address] [place] [address], [address], 5 15:45:50 ibuprofen 600 mg tablet 2024 025 [email or web address] [facility], [address] [place] [address], [address], 5 15:46:57 Patient TargetsNo targets recorded. Patient InstructionsNo instructions recorded. Reason for Referral None Reported. Problems Name Problem SNOMED Code Status Onset Date Resolution Date Notes Provider Name and Address Organization Details Recorded Time Arthritis 4618903 Active 025 Shaina velazquez [facility] [place] 5 14:51:04 Denture present 787919416 Active 025 Shaina Mckenziemichae l caroline [facility] [place] 5 14:51:18 Problem Notes None recorded. Procedures Surgical History Date Name Laterality Status Provider Name and Address Organization Details Recorded Time repair of medial collateral ligament of knee joint completed Shaina SALCEDO - [facility] [place] 08/11/2024 14:53:52 Imaging Results None recorded. Procedure Notes None recorded. Medical Equipment None Reported. Allergies No known drug allergies Medications Name Sig Start Date Stop Date Status Note LastModified by Organization Details LastModified Time amoxicillin 500 mg capsule TAKE 1 CAPSULE BY MOUTH TWICE DAILY FOR 10 DAYS active Not Available Not Available No t Available bupropion HCl SR 150 mg tablet,12 hr sustained-rel ease TAKE 1 TABLET BY MOUTH ONCE DAILY active Not Available Not Available No t Available promethazine- DM 6.25 mg-15 mg/5 mL oral syrup TAKE 5 ML BY MOUTH EVERY 6 HOURS NEEDED FOR COUGH active Not Available Not Available No t Available doxycycline hyclate 100 mg capsule TAKE 1 CAPSULE BY MOUTH TWICE DAILY FOR 10 DAYS active Not Available Not Available No t Available ropinirole 1 mg tablet TAKE 1 TABLET BY MOUTH ONCE DAILY active Not Available Not Available No t Available cetirizine 10 mg tablet TAKE 1 TABLET BY MOUTH ONCE DAILY NEEDED FOR ALLERGIES active Not Available Not Available No t Available sulfamethoxaz ole 800 mg-trimethopr im 160 mg tablet TAKE 1 TABLET BY MOUTH EVERY 12 HOURS active Not Available Not Available No t Available ketorolac 10 mg tablet active Not Available Not Available No t Available benzonatate 100 mg capsule TAKE 1 CAPSULE BY MOUTH THREE TIMES DAILY NEEDED FOR COUGH active Not Available Not Available No t Available lisinopril 10 mg tablet TAKE 1 TABLET BY MOUTH ONCE DAILY active Not Available Not Available No t Available azelastine 137 mcg (0.1 %) nasal spray USE 1 SPRAY IN EACH NOSTRIL TWICE DAILY active Not Available Not Available No t Available ibuprofen 600 mg tablet Take 1 tablet 3 times a day by oral route as needed. 2024 active Not Available Not Available Not Avai lable methylprednis olone 4 mg tablets in a dose pack TAKE DIRECTED active Not Available Not Available No t Available amoxicillin 875 mg-potassium clavulanate 125 mg tablet TAKE 1 TABLET BY MOUTH EVERY 12 HOURS active Not Available Not Available No t Available tobramycin 0.3 %-dexamethaso ne 0.1 % eye drops,suspens ion active Not Available Not Available Not Available buprenorphine 8 mg-naloxone [address] TABLETS UNDER THE TONGUE AND ALLOW TO DISSOLVE 1 TIME EACH DAY active Not Available Not Available No t Available ciprofloxacin 0.3 %-dexamethaso ne 0.1 % ear drops,suspens ion INSTILL 4 DROPS INTO THE EAR(S) TWICE DAILY FOR 7 DAYS active Not Available Not Available No t Available naloxone 4 mg/actuation nasal spray SPRAY 1 DOSE INTO 1 NOSTRIL IN CASE OF OVERDOSE. IF PERSON DOES NOT RESPOND IN 2-3 MINUTES, SPRAY OTHER DOSE INTO OTHER NOSTRIL. active Not Available Not Available No t Available Vitals Date Recorded Body height Body mass index (BMI) Body weight Body temperature Provider Name and Address Organization Details Last Updated DateTime 08/11/2024 182.88 cm 33.9 kg/m2 172783.0 9 g 98.1 [degF] Shaina SALCEDO [facility] [place] 08/11/2024 14:50:36 Social History Question Answer Notes LastModified by [employer] Details LastModified Time Tobacco Smoking Status Current Every Day Smoker DENISSE Romero [facility] [place] 08/11/2024 14:53:13 What Was The Date Of Your Most Recent Tobacco Screening? 08/11/2024 Information not available 08/11/2024 Has Tobacco Cessation Counseling Been Provided? No Information not available 08/11/2024 Sex: Unknown Functional Status Question Answer Note LastModified by Organization D etails LastModified Time What is your level of alcohol consumption? None Information not available 08/11/2024 Mental Status None recorded. Family History Relationship Description Onset Age of this Age Resolved Age Notes LastModified by Organization Details LastModified Time Mother Mother COPD/ Heart diseas e Not available 08/11/2024 14:51:57 Father Father alcoho lism/ throat cancer Not available 08/11/2024 14:52:37 Medical History No medical history recorded. Past Encounters Encounter ID Performer Location Encounter Start Date Encounter Closed Date Diagnosis/Indication Diagnosis SNOMED-CT Code Diagnosis ICD10 Code Diagnosis IMO Codes Diagnosis Note [id number] Rahat Robles Jr, MD [facility] [address] [address] 08/11/2024 14:47:39 08/11/2024 15:47:51 Epididymitis 31365559 N45.1 Patient with worsening discomfort over the past few weeks. We discussed that he could have an underlying epididymit is or orchitis. We will treat him with antibiotic s and conservati ve measures. Acquired hydrocele 72022 5006 N43.3 patient with bilateral hydroceles right greater than left. Ultrasound in February showed a large simple right hydrocele and a small left hydrocele. We will repeat a scrotal ultrasound in follow-up in office. Health Concerns Section Related Observation LastModified by Organization Detai ls LastModified Time None Recorded Concern Status LastModified by Organization Details LastModified Time None Recorded Advance Directives Directive None Recorded Payers Insurance Date Sequence Insurance Name Policy Number Policy Queen Covered Member ID Queen Member ID Guarantor Name 08/11/2024 1 JOSE Licea [id number] 08/11/2024 1 *SELF PAY* Notes Date Note Type Note Provider Name and Address Organization Details Recorded Time 08/11/2024 text/html ROS as noted in the HPI Patient is a 49-year-old white male who was seen in the emergency room at [facility] we will earlier. Emergency room physician sent him over for evaluation. Patient has a history of bilateral hydroceles and states over the past couple of months the swelling and the pain had worsened. CT scan and ultrasound of the scrotum were performed in February [address]24. CT scan showed hepatomegaly and steatosis. The scrotal ultrasound showed normal-sized testicles. There was a large simple right hydrocele and a small left hydrocele. Rahat Robles Jr, MD [address] [place] [address], [address], [place], [address], [place] - [facility] - [place] & [place] 08/11/2024 16:24:17
--- OUTSIDE RECORDS SUMMARY | 2025-05-16 09:44 | XMS_ITS ---
Author Organization [facility] Address [address] [place] [address] Phone Care Team Providers Care Dance Therapist Name Role Phone Laine Cardenas APRN Primary Care Provider [phone] Ru Enriquez MD Unavailable [phone] Problems Includes: Active, inactive, and resolved Problems All Visits Onset Date Resolved Date Provider Condition S tatus Joint Pain Left Knee 03/10/2023 Kenroy Branch rn, PA-C Active Last Documented On 3 9:41AM ; [facility] Plan of Treatment Instructions to patient Intervention and counseling on cessation of tobacco use Last Documented On 3 9:45AM ; [facility] Lose weight Last Documented On 3 9:46AM ; [facility] Assessments Includes: Assessments for all patient encounters Findings Encounter Date Overweight Physician Specified with Kenroy Johnson PA-C 03/10/2023 Last Documented On 3 11:02AM ; [facility] Instructions Includes: Instructions for all patient encounters Instructions to patient Intervention and counseling on cessation of tobacco use Last Documented On 3 9:45AM ; [facility] Lose weight Last Documented On 3 9:46AM ; [facility] Medical Equipment - Implanted Devices Includes: Current and historical Devices No Medical Equipment Recorded Medications Includes: Current and historical Medications Current Medications (continue as prescribed) Acetaminophen 325 MG Oral Tablet 02/28/2023 Provider : Laine Cardenas APRN Diagnosis: Last Documented On 3 9:41AM By Elena Garcia ; [facility] Ibuprofen 600 MG Oral Tablet 02/28/2023 Provider: Laine Cardenas APRN Diagnosis: Last Documented On 3 9:41AM By Elena Garcia ; [facility] Methocarbamol 750 MG Oral Tablet 02/28/2023 Provider : Laine Cardenas APRN Diagnosis: Last Documented On 3 9:41AM By Elena Garcia ; [facility] Vivitrol 380 MG Intramuscula r Suspension Reconstituted 02/24/2023 Provider: Laine Cardenas APRN Diagnosis: Last Documented On 3 9:41AM By Elena Garcia ; [facility] Cetirizine HCl 10 MG Oral Tablet 02/03/2023 Provider : Laine Cardenas APRN Diagnosis: Last Documented On 3 9:41AM By Elena Garcia ; [facility] Natural Vitamin D-3 125 MCG (5000 UT) Oral Tablet 02/03/2023 Provider: Laine Cardenas APRN Diagnosis: Last Documented On 3 9:41AM By Elena Garcia ; [facility] Past Medications on file Meloxicam 15 MG Oral Tablet 03/10/2023 - 04/09/2023 Pr ovider: Kenroy Johnson PA-C Diagnosis: 1 every bedtime Last Documented On 3 10:00AM By Elena Garcia ; [facility] Voltaren 1% External Gel 03/10/2023 - 04/09/2023 Provi patt: Kenroy Johnson PA-C Diagnosis: three times a day Apply 4 gr ams to affected area 3 times a day Last Documented On 3 10:00AM By Elena Garcia ; [facility] Medications Administered Includes: Administered Medications in patient's chart No Administered Medications Recorded Results Includes: Results from 05/16/2024 through 05/16/2025 No Results Recorded For Specified Dates History of Present Illness History of Present Illness not supported for this document type No History of Present Illness Recorded Social History Description Last Updated Tobacco use 03/10/2023 Last Documented On 3 11:02AM ; [facility] Caffeine use 03/10/2023 Last Documented On 3 11:02AM ; [facility] No recent change in diet 03/10/2023 Last Documented On 3 11:02AM ; [facility], [facility] Not exercising regularly 03/10/2023 Last Documented On 3 11:02AM ; [facility] Not using alcohol 03/10/2023 Last Documented On 3 11:02AM ; [facility] Not using drugs 03/10/2023 Last Documented On 3 11:02AM ; [facility] Yes, current smoker. 03/10/2023 Last Documented On 3 11:02AM ; [facility] Smoking Status Unknown Medical History Includes: Medical History in patient's chart Description Last Updated Past medical and surgical history non-co ntributory 03/10/2023 Last Documented On 3 11:02AM ; [facility] Family History Includes: Family History in patient's chart Description Last Updated No significant family history 03/10/2023 Last Documented On 3 11:02AM ; [facility] Review of Systems Review of Systems not supported for this document type No Review of Systems Recorded Mental Status Description Anxiety Functional Status No Functional Status Recorded Physical Exam Physical Exam not supported for this document type No Physical Exam Recorded Allergies Includes: Active, inactive, and resolved Allergies No Known Allergies Insurance Includes: Active Insurance Policies Plan Name Member ID Group # Subscriber Relationship Effect cornelius Dates 1 - [employer] MEDICAID [id number] Musa Simon Clinical Notes Includes: Signed Clinical Notes starting from 07/04/2022 No Clinical Notes Recorded
--- OUTSIDE RECORDS SUMMARY | 2025-05-16 09:44 | XMS_ITS | Patient Health Record ---
Author Organization [facility] Address [address] [place] [id number] Care Team Providers Care Cargo Agent Name Role Phone Mckayla Thakur Primary Care Provider [phone] Allergies No Known Allergies Reason For Referral No Information Medications Medication SIG (Take, Route, Frequency, Duration) Notes Start Date End Date Status Amoxicillin-Pot Clavulanate 875-125 MG 1 tablet Orally every 12 hrs; Duration: 7 days 02/28/2025 Active Ventolin HFA 108 (90 Base) MCG/ACT 1 puff as needed Inhalation every 4 hrs; Duration: 10 days 02/28/2025 Active Escitalopram Oxalate 20 MG TAKE ONE TABL ET BY MOUTH EVERY DAY Oral; Duration: 30 Days Active Metoprolol Succinate ER 25 MG Oral; Duration: 30 Days Acti ve Prasugrel HCl 10 MG TAKE ONE TABLET MAT Y AT BEDTIME Oral; Duration: 30 Days Active Aspirin Low Dose 81 MG Oral; Duration: 30 Days Active Atorvastatin Calcium 80 MG Oral; Duration: 30 Days Active Natural Vitamin D-3 125 MCG (5000 UT) TAKE ONE TABLET DAILY IN THE MORNING Oral; Duration: 30 Days Active Vital Signs Heart Rate 78 /min 02/28/2025 Temperature 97.2 degrees Fahrenheit 02/28/2025 Respiratory Rate 18 /min 02/28/2025 Blood pressure diastolic 80 mm Hg 02/28/2025 Oximetry 96 % 02/28/2025 Height 71 in 02/28/2025 Blood pressure systolic 130 mm Hg 02/28/2025 Weight 266.6 lbs 02/28/2025 BMI 37.18 kg/m2 02/28/2025 Encounters Encounter Location Date Provider Diagnosis [facility] [address] [place] [address] 02/28/2025 Mckayla Thakur Acute non-recurrent pansinusitis J01.40 and Acute bronchitis, unspecified organism J20.9 Assessments Encounter Date Diagnosis (ICD Code) Assessment Notes Treatment Notes Treatment Clinical Notes Section Notes 02/28/2025 Acute non-recurrent pansinusitis (ICD-10 - J01.40) Encouraged good PO fluid intake. Encouraged rest and humidification . May alternate Tylenol and Motrin prn for pain/fever. RTC if symptoms not resolved in 2-3 days. 02/28/2025 Acute bronchitis, unspecified organism (ICD-10 - J20.9) Instructed pt that cough can last 2-3 weeks. 02/28/2025 Other I have verifie d patient name, , medication, dose, route, and allergies. All information is correct and matches the order. Ruslan RIVERA, Aminata 02/28/2025 07:48:46 PM > Plan Of Treatment No Information Insurance Providers Payer Name Payer Address Payer Phone Subscriber Number Group Number Insured Name Patient Relationship to Insured Coverage Start Date Coverage End Date [employer] [facility] [address] [address] [place] [address] [id number] VENKAT KAT Self - patient is the insured 1 Medications Administered Medication Instructions Date of Administration Dosage Notes dexAMETHasone Sodium Phosphate 02/28/2025 1 mL bart well cefTRIAXone Sodium 02/28/2025 tolera richie well Medical (General) History Medical History History ICD Code HTN high Cholesterol Heroin /snorting/ 6 months clean
--- OUTSIDE RECORDS SUMMARY | 2025-05-16 09:44 | XMS_ITS | Patient Health Record ---
Author Organization [facility] [place] Address [address] [place] [address] Care Team Providers Care Transfer Agent Name Role Phone Franklin Styles Primary Care Provider Lorena Rabago Unavailable [phone] Maureen Oliver Unavailable [phone] Allergies No Known Allergies Reason For Referral Reason Please schedule pt t o see urology in [place] for eval of hydrocele. He is at [facility], Please let Sienna know about appt date and time. Thanks. Diagnosis 1 Hydrocele, unspecifi ed hydrocele type (N43.3) Referral Organization [facility] Referring Provider First Name Lorena Referring Provider Last Name Gem Referring Provider Speciality Nurse Prac titioner Referred Provider Specialty Urology General Notes Josi Pfeiffer 10:09:11 AM >Referral faxed to Urology. Appt pending.Rosy Rhonda 12/09/2024 10:58:39 AM >Pt is scheduled with Jared Corbin on 03/17/2025 @ 2:00pm.Rosy Rhonda 12/09/2024 10:59:25 AM >Sienna at [facility] notified via email of appt date, time and location. Referral Priority Routine Referral Appointment Date 03/17/2025 Reason Please schedule pt f or eval and treat by chiropractor in [place]. He is at [facility]. Please let Sienna know about appt date and time. Thanks Diagnosis 1 Low back pain, unspe cified (M54.50) [facility]erral Organization [facility] Referring Provider First Name Lorena Referring Provider Last Name Gem Referring Provider Speciality Nurse Prac francoiseioner Referred Provider Specialty Chiropractor General Notes [place], Josi 10:22:58 AM >appt scheduled at [facility]. [address] Emailed Sienna with appt. . Referral Priority Routine Referral Appointment Date 12/06/2024 Medications Medication SIG (Take, Route, Frequency, Duration) Notes Start Date End Date Status Metoprolol Succinate ER 25 mg take (1/2) tablet by mouth at bedtime; Duration: 30 Active Lisinopril 10 MG 1 daily Act cornelius Prasugrel HCl 10 mg TAKE ONE TABLET DAILY AT BEDTIME; Duration: 30 Active Methocarbamol 750 MG 1 tablet Orally twice a day; Duration: 30 days As needed 11/30/2024 Not-Taking tiZANidine HCl 4 MG 1 tablet at bedtime as needed Orally Once a day; Duration: 30 day(s) 11/30/2024 Not-Taking Vitamin D 50 MCG (1999 UT) 1 tablet Orally daily Active Aspirin Low Dose 81 mg TAKE ONE TABLET DAILY AT BEDTIME; Duration: 30 Active Atorvastatin Calcium 80 mg TAKE ONE TABLET DAILY; Duration: 30 Active Ibuprofen 800 MG 1 tablet with food or milk as needed Orally every 8 hrs; Duration: 30 days 11/30/2024 Active Escitalopram Oxalate 20 MG 1 tablet Orally Once a day; Duration: 30 days dose increase Active Crestor 10 MG 1 tablet Orally daily Not-Taking Social History Tobacco Use: Social History Observation [...] ast year? No Points 0 Interpretation Negative Problems Problem Type SNOMED Code ICD Code Onset Dates Problem Status W/U Status Risk Notes Problem Tobacco user (275702244) Nicotine dependence, cigarettes, uncomplicated (F17.210) Active confirmed Problem Chronic pain (97432300) Other chronic pain (G89.29) Active confirmed Problem Nondependent alcohol abuse in remission (860345108) Alcohol abuse, in remission (F10.11) Active confirmed Problem Nondependent opioid abuse in remission (911546306) Opioid abuse, in remission (F11.11) Active confirmed Problem Hyperlipidemia (disorder) (81921536) Hyperlipidemia (disorder) (E78.5) Active confirmed Problem Allergic rhinitis (disorder) (49891134) Allergic rhinitis (disorder) (J30.9) Active confirmed Problem Vitamin D deficiency (71615682) Vitamin D deficiency (E55.9) Active confirmed Problem Generalized anxiety disorder (06458785) KRUNAL (generalized anxiety disorder) (F41.1) Active confirmed Problem Insomnia (399478844) Insomnia, unspecified type (G47.00) Active confirmed Problem Anxiety (10989192) Anxiety (F41.9) Active confirmed Problem Sciatica (63534715) Low back pain with radiation (M54.40) Active confirmed Problem Tobacco user (032317693) Smoker unmotivated to quit (F17.200) Active confirmed Problem 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 confirmed Problem Substance abuse in remission (F19.11) Active confirmed Problem Otitis externa (7169748) Otitis externa, unspecified chronicity, unspecified laterality, unspecified type (H60.90) Active confirmed Vital Signs Heart Rate 78 /min 02/24/2025 Temperature 97.0 degrees Fahrenheit 02/24/2025 Respiratory Rate 18 /min 02/24/2025 Blood pressure diastolic 69 mm Hg 02/24/2025 Oximetry 98 % 02/24/2025 Height 71 in 02/24/2025 Blood pressure systolic 127 mm Hg 02/24/2025 Weight 248 lbs 02/24/2025 BMI 34.59 kg/m2 02/24/2025 Encounters Encounter Location Date Provider Diagnosis [address] [address] 11/04/2024 Maureen Benito Substance abuse in remission F19.11 ; Anxiety F41.9 and Smoker unmotivated to quit F17.[address] [address] 11/30/2024 Lorena Conn Other chronic pain G89.29 ; Low back pain, unspecified M54.50 and Hydrocele, unspecified hydrocele type N43.[address] [address] 01/05/2025 Maureen Benito Anxiety F41.9 ; Substance abuse in remission F19.11 and Smoker unmotivated to quit F17.[address] [address] 01/27/2025 Maureen Benito KRUNAL (generalized anxiety disorder) F41.1 and Methamphetamine abuse in remission F15.[address] [address] 02/24/2025 Maureen [place] KRUNAL (generalized anxiety disorder) F41.1 and Methamphetamine abuse in remission F15.11 [facility] [address] [address] - [address] [place] [address] 01/04/2025 [facility] [address] [place] [address] 12/03/2024 [facility] [address] [place] [address] 12/10/2024 [facility] [address] [place] [address] 03/07/2025 [facility] Assessments Encounter Date Diagnosis (ICD Code) Assessment Notes Treatment Notes Treatment Clinical Notes Section Notes 11/04/2024 Anxiety (ICD-10 - F41.9) Advised that if suicidal thoughts occur to stop medication and call 9-1-1 immediately. Addressed goals for achieving remission of symptoms. Encourage patience to engage in the in counseling. Encouraged to review daily diet and improve eating habits, to include more fruits, vegetables, decrease processed sugars. Suggested exercise, engaging in mindfulness exercises, nature walks, getting ample sleep, decrease/allevia te caffeine from diet, identify ways to reduce screen time, and finding ways to show/give more generativity toward others. Patient declines medication for anxiety treatment today 11/04/2024 Substance abuse in remission (ICD-10 - F19.11) Congratulated for the choice to become sober, encouraged in continued success Made aware of the availability for early f/u if needed Encouraged in daily exercise, meditation, reading, drawing, listening to music, socializing, helping others, learning a new skill, or partaking in health promoting lifestyle habits to promote gila 11/30/2024 Other chronic pain (ICD-10 - G89.29) 01/05/2025 Substance abuse in remission (ICD-10 - F19.11) Congratulated for the choice to become sober, encouraged in continued success Made aware of the availability for early f/u if needed Encouraged in daily exercise, meditation, reading, drawing, listening to music, socializing, helping others, learning a new skill, or partaking in health promoting lifestyle habits to promote gila 01/27/2025 KRUNAL (generalized anxiety disorder) (ICD-10 - F41.1) Discussed the mechanism of action of antidepressants, /mood stabilizers common side effects, length of time to reach effectiveness. Most common side effects are blurred vision, dizziness, dry mouth, nausea or upset stomach, diarrhea, constipation, headaches, insomnia, tiredness, sexual problems, sweating, weight gain. Advised that if suicidal thoughts occur to stop medication and call 9-1-1 immediately. Addressed goals for achieving remission of symptoms. Encourage patience to engage in the in counseling. Encouraged to review daily diet and improve eating habits, to include more fruits, vegetables, decrease processed sugars. Suggested exercise, engaging in mindfulness exercises, nature walks, getting ample sleep, decrease/allevia te caffeine from diet, identify ways to reduce screen time, and finding ways to show/give more generativity toward others. Discussed ways to reduce stress such as exercise, caffeine avoidance, eating healthy, meditation, deep breathing and spending time in enjoyable activities. Warning signs and symptoms of worsening and cause to seek emergent help. Provided the help hotline for [place], from any cell text 519 . 01/27/2025 Methamphetamine abuse in remission (ICD-10 - F15.11) Congratulated for the choice to become sober, encouraged in continued success Made aware of the availability for early f/u if needed Encouraged in daily exercise, meditation, reading, drawing, listening to music, socializing, helping others, learning a new skill, or partaking in health promoting lifestyle habits to promote gila 02/24/2025 KRUNAL (generalized anxiety disorder) (ICD-10 - F41.1) Discussed the mechanism of action of antidepressants, /mood stabilizers common side effects, length of time to reach effectiveness. Most common side effects are blurred vision, dizziness, dry mouth, nausea or upset stomach, diarrhea, constipation, headaches, insomnia, tiredness, sexual problems, sweating, weight gain. Advised that if suicidal thoughts occur to stop medication and call 9-1-1 immediately. Addressed goals for achieving remission of symptoms. Encourage patience to engage in the in counseling. Encouraged to review daily diet and improve eating habits, to include more fruits, vegetables, decrease processed sugars. Suggested exercise, engaging in mindfulness exercises, nature walks, getting ample sleep, decrease/allevia te caffeine from diet, identify ways to reduce screen time, and finding ways to show/give more generativity toward others. Discussed ways to reduce stress such as exercise, caffeine avoidance, eating healthy, meditation, deep breathing and spending time in enjoyable activities. Warning signs and symptoms of worsening and cause to seek emergent help. Provided the help hotline for [place], from any cell text 976 . 02/24/2025 Methamphetamine abuse in remission (ICD-10 - F15.11) Congratulated for the choice to become sober, encouraged in continued success Made aware of the availability for early f/u if needed Encouraged in daily exercise, meditation, reading, drawing, listening to music, socializing, helping others, learning a new skill, or partaking in health promoting lifestyle habits to promote gila 11/30/2024 Low back pain, unspecified (ICD-10 - M54.50) 01/05/2025 Anxiety (ICD-10 - F41.9) Advised that if suicidal thoughts occur to stop medication and call 9-1-1 immediately. Addressed goals for achieving remission of symptoms. Encourage patience to engage in the in counseling. Encouraged to review daily diet and improve eating habits, to include more fruits, vegetables, decrease processed sugars. Suggested exercise, engaging in mindfulness exercises, nature walks, getting ample sleep, decrease/allevia te caffeine from diet, identify ways to reduce screen time, and finding ways to show/give more generativity toward others. 01/05/2025 Smoker unmotivated to quit (ICD-10 - F17.200) Discussed nicotine addiction. Encouraged smoking cessation. Advised of techniques to assist in cessation. Discussed risk of nicotine on the body. 11/30/2024 Hydrocele, unspecified hydrocele type (ICD-10 - N43.3) 11/04/2024 Smoker unmotivated to quit (ICD-10 - F17.200) Discussed nicotine addiction. Encouraged smoking cessation. Advised of techniques to assist in cessation. Discussed risk of nicotine on the body. Plan Of Treatment Pending Test Test Name Order Date X ray : Spines, lumbosacral 11/30/2024 Vitamin B12 and Folate 11/22/2022 Hemoglobin A1c 11/22/2022 CBC With Differential/Platelet Hep B Surface Ab 11/22/2022 HBsAg Screen 11/22/2022 Hep B Core Ab, Tot 11/22/2022 Hep A Ab, IgM 11/22/2022 Prostate-Specific Ag, Serum 11/22/2022 Hep B Core Ab, IgM 11/22/2022 Vitamin D, 25-Hydroxy 11/22/2022 Panel [id number] 11/22/2022 Albumin/Creatinine Ratio,Urine Trich vag by JAKOB 11/22/2022 Chlamydia trachomatis, JAKOB 11/22/2022 Neisseria gonorrhoeae, JAKOB 11/22/2022 Lipid Panel 11/22/2022 Comp. Metabolic Panel (14) 11/22/2022 HCV RT-PCR, Quant (Non-Graph) 11/22/2022 T3F+T4F+TSH 11/22/2022 Next Appt Details Provider Name:Maureen Oliver , 05/26/2025 09:15:00 AM, [address] [place] [address], [phone], Insurance Providers Payer Name Payer Address Payer Phone Subscriber Number Group Number Insured Name Patient Relationship to Insured Coverage Start Date Coverage End Date [employer] [address] [address] [place] [address] [id number] Musa Licea Self - patient is the insured 0 Medications Administered Medication Instructions Date of Administration Dosage Notes Vitamin B12 12/05/2022 Medical (General) History Medical History History ICD Code left MCL and meniscus repaired anxiety substance abuse MD Surgical History Surgery Date(Month/Year) MCL and Meniscus surgery hemorrhoidectomy Hospitalization History Reason Date(Month/Year) Surgeries
--- OUTSIDE RECORDS SUMMARY | 2025-05-16 09:45 | XMS_ITS ---
Care Plan - [facility] Created on: May 16, 2025 Musa Licea : 1975 Sex: Male Author Organization [facility] Address [address] [place] [address] Phone Care Team Providers Care Unit Tender Name Role Phone Laine Cardenas APRN Primary Care Provider [phone] Zoe SAINI, Ru Unavailable [phone]
--- OUTSIDE RECORDS SUMMARY | 2025-05-16 09:45 | XMS_ITS | Encounter Summary ---
Author Organization Healthcare Address [address] [place] [address] Care Team Providers Care Mc Kay Stitcher Name Role Phone Pcp, No Primary Care Provider Unavailabl e Reason for Visit * Reason Onset Date Comments HCN - Patient Message 04/27/2025 Encounter Details Date Type Department Care Team (Late st Contact Info) Description 04/27/2025 Telephone [facility] [facility] [address] [facility] [place] [id number] Mallika Bell MD [address] [place] [address] HCN - Patient Message Social History Tobacco Use Types Packs/Day Years Used Date Smoking Tobacco: Every Day Cigarettes 2 35.8 Started: 1989 Smokeless Tobacco: Current Chew Alcohol Use Standard Drinks/Week Comments Not Currently 0 (1 standard drink = 0.6 oz pur e alcohol) Humiliation, Afraid, Rape, and Kick questionnair e Answer Date Recorded Within the last year, have y ou been afraid of your partner or ex-partner? No 09/09/2024 Within the last year, have y ou been humiliated or emotionally abused in other ways by your partner or ex-partner? No Within the last year, have y ou been kicked, hit, slapped, or otherwise physically hurt by your partner or ex-partner? No 09/09/2024 Within the last year, have y ou been raped or forced to have any kind of sexual activity by your partner or ex-partner? No 09/09/2024 Overall Financial Resource Strain (CARDIA) Answe r Date Recorded How hard is it for you to pa y for the very basics like food, housing, medical care, and heating? Not hard at all 09/09/2024 PHQ-2 Answer Date Recorded Patient Health Questionnaire-2 Score 0 12/14/2024 Hunger Vital Sign Answer Date Recorded Within the past 12 months, y ou worried that your food would run out before you got the money to buy more. Never true 09/09/19 25 Within the past 12 months, t he food you bought just didn't last and you didn't have money to get more. Never true 09/09/2024 PRAPARE - Transportation Answer Date Re corded In the past 12 months, has l ack of transportation kept you from medical appointments or from getting medications? No 08/22 In the past 12 months, has l ack of transportation kept you from meetings, work, or from getting things needed for daily living? No 09/09/2024 PHQ-9 Answer Date Recorded Patient Health Questionnaire-9 Score 0 12/14/2024 Housing Stability Vital Sign Answer Craig e Recorded In the last 12 months, was t here a time when you were not able to pay the mortgage or rent on time? No 09/09/2024 In the past 12 months, how m any times have you moved where you were living? 1 09/09/2024 At any time in the past 12 m [facility], were you homeless or living in a mcfp (including now)? No 09/09/2024 Utilities Answer Date Recorded In the past 12 months has th e electric, gas, oil, or water company threatened to shut off services in your home? No 09/09/2024 Sex and Gender Information Value Date Recorded Sex Assigned at Not on file Legal Sex Male 8:35 PM EDT Gender Identity Not on file Sexual Orientation Not on file documented as of this encounter Miscellaneous Notes * Telephone Encounter - Monika Olmedo - 04/27/2025 11:11 AM EDT Patient Phone Message Reason for Call: Pt is requesting a call to rs his post op appt.. Best contact number and optimal time of day to reach caller: [phone] Note: Please do not reply to this message. Follow-up communication and further actions as a result of this message need to be communicated with the patient directly, if the patient is not active onMyChart. If the patient is active on MyChart, they will receive notification of the communication/outcome via [employer]. documented in this encounter Plan of Treatment Not on file documented as of this encounter Visit Diagnoses Not on filedocumented in this encounter Additional Health Concerns Assessment Noted Time PHQ-9 Depression Total Score: 0 12/15/19 9:32 AM EDT A fall risk assessment has been complete d for the patient 12/14/2024 9:32 AM EDT A Body Mass Index follow-up plan has been documented for the patient 12/22/2024 2:55 PM EDT documented as of this encounter Care Teams Mc Kay Stitcher Relationship Specialty Start Date End Date Pcp, [place] [address] PCP - General Family Medicine 09/08/24 documented as of this encounter
--- OUTSIDE RECORDS SUMMARY | 2025-05-16 09:45 | XMS_ITS | Clinical Summary ---
Author Organization [facility] Address [address] [place] [address] Phone Care Team Providers Care Overhead Crane Technician Name Role Phone Laine Cardenas APRN Primary Care Provider [phone] Ru Enriquez MD Unavailable [phone] Reason for Visit and Chief Complaint The Chief Complaint is: L knee pain Problems Includes: Problems addressed during this encounter and other active Problems Current Visit Onset Date Resolved Date Provider Darcy sparks Status Joint Pain Left Knee 03/10/2023 Kenroy Branch rn, PA-C Active Last Documented On 3 9:41AM ; [facility], [facility] Plan of Treatment Instructions to patient Intervention and counseling on cessation of tobacco use Last Documented On 3 9:45AM ; [facility] Lose weight Last Documented On 3 9:46AM ; [facility], [facility] Assessments Includes: Assessments from this encounter Findings - Overweight - Last Documented On 03/12/2023 11:02AM ; [facility] Instructions Includes: Instructions from this encounter Instructions to patient Intervention and counseling on cessation of tobacco use Last Documented On 3 9:45AM ; [facility], [facility] Lose weight Last Documented On 3 9:46AM ; [facility] Medical Equipment - Implanted Devices Includes: Current Devices No Medical Equipment Recorded Medications Includes: Medications discussed during this encounter and other current Medications New / Renewed during this visit Kenroy Johnson PA-C on 03/10/2023 Meloxicam 15 MG Oral Tablet Provider: Kenroy Rowland 30 day supply: 30 tablet, 0 refills Diagnosis: 1 every bedtime Pharmacy: [facility] - [address] [place] [address] Dr Daly , [facility], [phone] - Last Documented On 3 10:00AM By Elena Garcia ; [facility] Voltaren 1% External Gel Provider: Christopher Johnson PA-C 30 day supply: 100 gram, 0 refills Diagnosis: three times a day Apply 4 gr ams to affected area 3 times a day Pharmacy: [facility] [address] Daly , [facility], [phone] - Last Documented On 3 10:00AM By Elena Garcia ; [facility] Current Medications (continue as prescribed) Acetaminophen 325 MG Oral Tablet 02/28/2023 Provider : Laine Cardenas APRN Diagnosis: Last Documented On 3 9:41AM By Elena Garcia ; [facility], [facility] Ibuprofen 600 MG Oral Tablet 02/28/2023 Provider: Laine Cardenas APRN Diagnosis: Last Documented On 3 9:41AM By Elena Garcia ; [facility] Methocarbamol 750 MG Oral Tablet 02/28/2023 Provider : Laine Cardenas APRN Diagnosis: Last Documented On 3 9:41AM By Elena Garcia ; [facility], [facility] Vivitrol 380 MG Intramuscula r Suspension Reconstituted 02/24/2023 Provider: Laine Cardenas APRN Diagnosis: Last Documented On 3 9:41AM By Elena Garcia ; [facility] Cetirizine HCl 10 MG Oral Tablet 02/03/2023 Provider : Laine Cardenas APRN Diagnosis: Last Documented On 3 9:41AM By Elena Garcia ; [facility] Natural Vitamin D-3 125 MCG (5000 UT) Oral Tablet 02/03/2023 Provider: Laine Cardenas APRN Diagnosis: Last Documented On 3 9:41AM By Elena Garcia ; [facility] Medications Administered Includes: Administered Medications from this encounter No Administered Medications Recorded Vital Signs Includes: Vital Signs from this encounter Vital Name 03/10/2023 09:45A Height (in) 71 Weight (lb) 250 Body Mass Index 34.9 Body Surface Area 2.3 Note: [facility] Last Documented: On 03/10/2023 9:45AM ; [facility], [facility] Results Includes: Results discussed during this encounter No Results Recorded For Specified Dates History of Present Illness Includes: History of Present Illness from this encounter HPI Musa Licea is a 47 year old [...] Tri compartmental OA with joint effusion 5. 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 Assessment: Left [...] 03/10/2023 Last Documented On 3 11:02AM ; [facility] Caffeine use 03/10/2023 Last Documented On 3 11:02AM ; [facility] No recent change in diet 03/10/2023 Last Documented On 3 11:02AM ; [facility] Not exercising regularly 03/10/2023 Last Documented On 3 11:02AM ; [facility] Not using alcohol 03/10/2023 Last Documented On 3 11:02AM ; [facility] Not using drugs 03/10/2023 Last Documented On 3 11:02AM ; [facility] Yes, current smoker. 03/10/2023 Last Documented On 3 11:02AM ; [facility] Smoking Status Unknown Procedures and Surgical History Includes: Procedures from this encounter Procedures Code Diagnosis Performing Provider Service L ocation Service Date intervention and counseling on cessation of tobacco use 4000F Last Documented On 3 9:45AM ; [facility] use of tobacco assessment performed 1000F Last Documented On 3 9:45AM ; [facility] review of medications documented 1160F Last Documented On 3 9:45AM ; [facility] an X-ray was performed 92159 Last Documented On 3 9:43AM ; [facility] an MRI was performed [id number] Last Documented On 3 9:43AM ; [facility] Medical History Includes: Medical History addressed during this encounter Description Last Updated Past medical and surgical history non-co ntributory 03/10/2023 Last Documented On 3 11:02AM ; [facility] Family History Includes: Family History addressed during this encounter Description Last Updated No significant family history 03/10/2023 Last Documented On 3 11:02AM ; [facility] Review of Systems Includes: Review of Systems [...] Time Diagnosis Physician Specified Kenroy Johnson PA-C [facility] 03/10/20 9:16AM 9:40AM Overweight Insurance Includes: Active Insurance Policies Plan Name Member ID Group # Subscriber Relationship Effect cornelius Dates 1 - [employer] MEDICA[employer] [id number] Musa Licea Self Clinical Notes Includes: Clinical Notes from this encounter * Progress note Date Encounter Last Documented by 03/10/2023 Physician Specified Last brayanumen richie on 03/12/2023; 11:02 AM, Kenroy Johnson PA-C; [facility], [facility] Active Problems & Conditions - Joint Pain [...] Tri compartmental OA with joint effusion 5. 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 Assessment: Left [...] Findings - Vitals taken 03/10/2023 09:45 am [facility] Height 71 in Weight 250 lbs [...]
--- OUTSIDE RECORDS SUMMARY | 2025-05-16 09:45 | XMS_ITS | Clinical Summary ---
Author Organization [facility] Address [address] [place] [address] Care Team Providers Care Assistant Grocery Name Role Phone Pcp, No Primary Care Provider Unavailabl e Allergies No known active allergies Medications acyclovir (Zovirax) 5 % ointment Apply to affected area three times per day for 6 days. 15 g 5 Active Additional Information Patient not taking.Reported on 12/22/2024 aspirin 81 MG chewable tablet Chew 1 tablet (81 mg) daily. 30 tablet 11 5 09/05/19 26 Active atorvastatin (Lipitor) 80 MG tablet Take 1 tablet (80 mg) by mouth nightly. 30 tablet 1 5 Active metoprolol succinate XL (Toprol-XL) 25 MG 24 hr tablet Take 0.5 tablets (12.5 mg) by mouth daily. Do not crush or chew. 15 tablet 1 5 Active prasugrel (Effient) 10 MG tablet Take 1 tablet (10 mg) by mouth daily. 30 tablet 11 5 Active nicotine (Nicoderm CQ) 14 MG/24HR patch Place 1 patch on the skin 1 (one) time each day at the same time. 30 patch 5 Active Additional Information Patient not taking.Reported on 12/14/2024 nicotine polacrilex (Commit) 2 MG lozenge Dissolve 1 lozenge (2 mg) in the mouth as needed for smoking cessation. 100 lozenge 5 Active Additional Information Patient not taking.Reported on 12/22/2024 Buprenorphine HCl-Naloxone HCl (Suboxone) 8-[address] 1 Film (8 mg) under the tongue 2 (two) times a day. Active permethrin (Elimite) 5 % cream Please apply topically x1 time to body, please avoid any mucosal areas or facial, please wash off after 8 hours. Do not leave on body for greater than 8 hours. 60 g 5 Active Additional Information Patient not taking.Reported on 12/22/2024 hydrOXYzine pamoate (Vistaril) 25 MG capsule Take 1 capsule by mouth every 6 hours as needed for itching for up to 4 days. 16 capsule Active Additional Information Patient not taking.Reported on 12/14/2024 Natural Vitamin D-3 125 MCG (5000 UT) tablet Active methocarbamol (Robaxin) 750 MG tablet Take 1 tablet by mouth 2 times a day as needed. Active tiZANidine (Zanaflex) 4 MG tablet Take 1 tablet by mouth nightly. Active valsartan (Diovan) 80 MG tablet Take 1 tablet by mouth daily. 30 tablet 11 5 12/15/19 26 Active Additional Information Patient not taking.Reported on 12/22/2024 ibuprofen 800 MG tablet Take 1 tablet by mouth every 8 hours as needed for mild pain. 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 09/08/2024 Cardiomegaly 09/08/2024 Nonrheumatic mitral (valve) insufficiency 2024 Other disorders of lung 09/08/2024 Presence of other specified devices 09/08/2024 Hydrocele, unspecified 08/11/2024 Epididymitis 08/11/2024 Right upper quadrant pain 06/14/2024 Constipation, unspecified 02/27/2024 Diverticulosis of large inte dee without perforation or abscess without bleeding 02/27/2024 Hepatomegaly, not elsewhere classified Right lower quadrant pain 02/27/2024 Scrotal pain 02/27/2024 Cellulitis of right lower limb 12/22/2023 Other specified soft tissue disorders 12/22/2023 Impacted cerumen, bilateral 11/26/2023 Unspecified chronic otitis externa, bilateral Otalgia, bilateral 11/26/2023 Tinnitus, bilateral 11/26/2023 Right testicular pain 11/14/2023 Essential (primary) hypertension 11/12/2023 Inflammatory disease of prostate, unspecified Otalgia, unspecified ear 11/12/2023 Other specified diseases of blood and blood-form ing organs 11/12/2023 Otitis media, unspecified, unspecified ear 11/11 Prediabetes 11/12/2023 Testicular pain, unspecified 11/12/2023 Encounters Date Type Department Care Team Description 04/27/2025 Telephone [facility] [place] [address] [place] [phone] Mallika Bell MD HCN - Patient Message from Last 3 Months Social History Tobacco Use Types Packs/Day Years Used Date Smoking Tobacco: Every Day Cigarettes 2 35.8 Started: 1989 Smokeless Tobacco: Current Chew Tobacco Cessation:Ready to Q uit: Not Asked; Counseling Given: Not Answered Alcohol Use Standard Drinks/Week Comments Not Currently [...] any time in the past 12 m [facility], were you homeless or living in a skilled nursing (including now)? No 09/09/2024 Utilities Answer Date Recorded In the past 12 months has th e electric, gas, oil, or water company threatened to shut off services in your home? No 09/09/2024 Sex and Gender Information Value Date Recorded Sex Assigned at Not on file Legal Sex Male 8:35 PM EDT Gender Identity Not on file Sexual Orientation Not on file Last Filed Vital Signs Vital Sign Reading Time Taken Comments Blood Pressure 137/78 12/22/2024 3:13 PM EDT Pulse 80 12/22/2024 3:13 PM EDT Temperature 36.6 C (97.8 F) 12/22/2024 12:45 PM EDT Respiratory Rate 18 12/22/2024 3:13 PM EDT Oxygen Saturation 97% 12/22/2024 3:13 PM EDT Inhaled Oxygen Concentration - - Weight 116 kg (256 lb 6.3 oz) 12/22/2024 9:00 AM EDT Height 182.9 cm (6') 12/22/2024 9:00 AM EDT Body Mass Index 34.77 12/22/2024 9:00 AM EDT Plan of Treatment Health Maintenance Due Date Last Done Comments [facility]-HIV Screening 1973 [facility]-Hepatitis C Screening 1973 [facility]-/Child/Adol SDOH Screenings 1973 [facility]-DTaP,Tdap,and Td Vaccine s (1 - Tdap) 1992 [facility]-Hepatitis A Vaccines (1 of 2 - Risk 2-dose series) 1992 [facility]-Hepatitis B Vaccines (1 of 3 - 19+ 3-dose series) 1992 [facility]-Pneumococcal Vaccine: 50 + Years (1 of 2 - PCV) 1992 CT Colonography 2018 Colonoscopy 2018 FIT-DNA 2018 FIT 2018 FOBT 2018 Sigmoidoscopy 2018 [facility]-Colorectal Cancer Screening 2018 Lung Cancer Screening Shared Decision Making 2023 [facility]-Lung Cancer Screening 2023 [facility]-Zoster Vaccines (1 of 2) 2023 [facility]- SDOH Screenings 03/09/2025 [facility]-Adult SDOH Screenings 03/09/2025 09/09/2024 MZT-ENAND-14 Vaccine ( - season) 2025 [facility]-Influenza Vaccine (#1) 2025 [facility]-Diabetes: Hemoglobin A1C 09/08/2025 09/08/2024 [facility]-Depression Screening 12/14/2025 025, 12/14/2024 [facility]-Obesity Intervention Completed 025, 12/14/2024, 09/08/2024 HPV Vaccines Aged Out No longer eligi ble based on patient's age to complete this topic [facility]-HIB Vaccines Aged Out No longer e ligible based on patient's age to complete this topic [facility]-IPV Vaccines Aged Out No longer e ligible based on patient's age to complete this topic [facility]-Rotavirus Vaccines Aged Out No lo nger eligible based on patient's age to complete this topic Medical Devices Implanted Type Area Inventory Accountant Device Identifier Shelf Expiration Date Model / Serial / Lot Stent Coronary F[place] Rx 4.00mm X 26mm - [id number] Implanted:Qty: 1 on 09/08/2024 by Tanja ToureLens Block [id number] 04/26/2027 [id number] UX / / [id number] Stent Coronary [place] Rx 3.50mm X 22mm - [id number] Implanted:Qty: 1 on 12/22/2024 by Mallika Bell MD at [id number] 05/30/2027 [id number] UX / / [id number] Procedures Procedure Name Priority Date/Time Associated Diagnosis Comments HEMOGLOBIN A1C Add-On 09/08/2024 9:59 AM EST from Last 3 Months or Most Recently Relevant to Health Maintenance Results * Hemoglobin A1c (09/08/2024 9:59 AM EST) Hemoglobin A1c 5.5 <5.7 % 09/08/2024 10:42 AM EST [facility] Blood Venous blood specimen / Unknown Venipuncture / Unknown 09/08/2024 9:59 AM EST 09/08/2024 10:12 AM EST Narrative [facility] - 09/08/2024 10:42 AM EST HA1C Interpretive Data: Diagnosis of Diabetes: Diabetic > or = 6.5% Pre-diabetic 5.7 to 6.4% Non-diabetic < or = 5.6% Glycemic Targets for Type I and Type II Diabetics: Non- Adults <7.0% Adults <6.0% Children and Adolescents <7.5% Source: [place] [employer]. Standards of medical care in diabetes,2017. Diabetes Care.2017:40 (suppl 1):S1-S135. HbA1c assay performed by an ion-exchange chromatography method that is certified traceable to the DCCT. Luis Ellington MD LAB BLOOD ORDERABLES Final Res ult [facility] [address] [place] [address] from Last 3 Months or Most Recently Relevant to Health Maintenance [place] [address] [address] [employer] Advance Directives * Full Code (Latest Code Status on File) Date Activated Date Inactivated Comments 12/22/2024 1:01 PM 12/22/2024 5:24 PM Question Answer Comments I have reviewed the capacity from the link above and, if needed, have updated to appropriate status: Yes * DNR/DNI Date Activated Date Inactivated Comments 09/08/2024 10:50 AM 09/09/2024 5:22 PM Question Answer Comments DNR determined on/before admission date? Yes Patient has decision-making capacity? Yes * Full Code Date Activated Date Inactivated Comments 09/08/2024 10:32 AM 09/08/2024 10:50 AM Question Answer Comments Patient has decision-making capacity? Yes * DNR/DNI Date Activated Date Inactivated Comments 09/08/2024 10:28 AM 09/08/2024 10:32 AM Question Answer Comments DNR determined on/before admission date? Yes Patient has decision-making capacity? Yes * Full Code Date Activated Date Inactivated Comments 09/08/2024 9:30 AM 09/08/2024 10:28 AM Question Answer Comments Patient has decision-making capacity? Yes Care Teams Assistant Grocery Relationship Specialty Start Date End Date Pcp, No [address] [place] [address] PCP - General Family Medicine 09/08/24
== END 2025-05-13 23:59 ==
LOC: LAB.DROPOF 05-16 09:32
PROVIDERS: PCP Family Medicine; Visit Provider Family Medicine
DX: E55.9 Vitamin D deficiency, unspecified (principal); I10 Essential (primary) hypertension; R06.00 Dyspnea, unspecified; R53.83 Other fatigue; E78.5 Hyperlipidemia, unspecified; R73.03 Prediabetes
CPT/HCPCS: 80053; 80061; 82306; 83036; 84443; 85025; G0103

== ENCOUNTER 2025-05-24 06:25 | Outpatient (CLI) | payer MEDICAID, SELFPAY ==
--- OUTSIDE RECORDS SUMMARY | 2025-01-26 06:30 | XMS_ITS ---
Author Organization [facility], [place] Address [address] [place] [address] Care Team Providers Care Manager Pulmonary Name Role Phone Franklin Styles Primary Care Provider Maureen Oliver Unavailable [phone] Allergies No Known Allergies REASON FOR VISIT [facility] 3 week Medications Medication SIG (Take, Route, Frequency, Duration) Notes Start Date End Date Status Atenolol 50 MG 1 tablet Orally daily Active Escitalopram Oxalate 10 MG 1 tablet Oral ly Once a day; Duration: 30 day(s) Active tiZANidine HCl 4 MG 1 tablet at bedtime as needed Orally Once a day; Duration: 30 day(s) 11/30/2024 Active Ibuprofen 800 MG 1 tablet with food o r milk as needed Orally every 8 hrs; Duration: 30 days 11/30/2024 Active Methocarbamol 750 MG 1 tablet Orally twice a day; Duration: 30 days As needed 11/30/2024 Active Vitamin D 50 MCG (1999 UT) 1 tablet Orally daily Active Crestor 10 MG 1 tablet Orally daily Active Aspirin 81 MG 1 capsule Orally daily Active Lisinopril 10 MG 1 daily Act cornelius Social History Tobacco Use: Social History Observation Description Date Details (start date - stop date) Current Smoker NA - NA Sex Assigned At : Social History Observation Description Sex Assigned At Male Household Question Answer Notes Level of education: GED Tobacco Use/Smoking Question Answer Notes Are you a current smoker How many cigarettes a day do you smoke? -20 Alcohol Screen (Audit-C) Question Answer Notes Did you have a drink containing alcohol in the p ast year? No Points 0 Interpretation Negative Encounters Encounter Location Date Provider Diagnosis [address] [place] [address] 01/26/2025 Maureen Oliver Anxiety F41.9 and Substance abuse in remission F19.11 Assessments Encounter Date Diagnosis (ICD Code) Assessment Notes Treatment Notes Treatment Clinical Notes Section Notes 01/26/2025 Anxiety (ICD-10 - F41.9) Advised that if suicidal thoughts occur to stop medication and call 9- immediately. Addressed goals for achieving remission of symptoms. Encourage patience to engage in the in counseling. Encouraged to review daily diet and improve eating habits, to include more fruits, vegetables, decrease processed sugars. Suggested exercise, engaging in mindfulness exercises, nature walks, getting ample sleep, decrease/alleviat e caffeine from diet, identify ways to reduce screen time, and finding ways to show/give more generativity toward others. 01/26/2025 Substance abuse in remission (ICD-10 - F19.11) Congratulated for the choice to become sober, encouraged in continued success Made aware of the availability for early f/u if needed Encouraged in daily exercise, meditation, reading, drawing, listening to music, socializing, helping others, learning a new skill, or partaking in health promoting lifestyle habits to promote gila Plan Of Treatment Medication Medication Name Sig Start Date Stop Date Notes Escitalopram Oxalate 10 MG 1 tablet Oral ly Once a day; Duration: 30 day(s) Treatment Notes Assessment Notes Anxiety Advised that if suicidal thoughts occur to stop medication and call 9- immediately. Addressed goals for achieving remission of symptoms. Encourage patience to engage in the in counseling. Encouraged to review daily diet and improve eating habits, to include more fruits, vegetables, decrease processed sugars. Suggested exercise, engaging in mindfulness exercises, nature walks, getting ample sleep, decrease/alleviate caffeine from diet, identify ways to reduce screen time, and finding ways to show/give more generativity toward others. Substance abuse in remission Congratulated for the choice to become sober, encouraged in continued success Made aware of the availability for early f/u if needed Encouraged in daily exercise, meditation, reading, drawing, listening to music, socializing, helping others, learning a new skill, or partaking in health promoting lifestyle habits to promote gila Next Appt Details Follow Up: prn, Reason: SPAR C TH f/u with PMHNP Provider Name:Maureen Oliver , 05/26/2025 09:15:00 AM, [address] [place] [address], [place], [address], Progress Notes * Musa LICEA ADOB:[birth year] (50 yo M)Acc No.[id number]:01/26/2025 Psych Telehealth Patient: Musa ELIZALDE Provider: Kiet Oliver APRN :1975 A ge:49 Y S ex:Male Date:01/26/2025 Address:[address] [place], [place] [id number] Pcp:Franklin Styles Subjective: * Chief Complaints: * 1 . Spar[facility] 3 week fu. * HPI: C onstitutional: Reports compliance with medication, denies side effects. AIMS=negative. Reports compliance with individual/group therapy. Describes mood as: Denies any new medical conditions or medications. Denies any inpatient hospitalization for psychiatric symptoms. Denies SI/HI. Denies A/V hallucinations. Rates anxiety /10 for the last 2 weeks. Rates depression /10 for the last 2 weeks. Mitigating factors include: Describes sleep as: Describes appetite as: Denies any alcohol or substance abuse. 01/05/25--Patient is being seen via for follow up regarding mental health care. Denies any unusual body or mouth movements since last visit. Reports that medication is being taken as prescribed and denies side effect. Reports recovery is going well, denies cravings I am the older person here and a lot of the younger ones bring their problems to me. There is no report of recent hospitalization. Denies suicidal ideation, homicidal ideation, or auditory/visual hallucinations. Describes sleep as:mind races at night but trouble falling asleep, always had trouble falling asleep Describes appetite as: good, been eating better, had stents put in and feel so much better Rates anxiety at 7/10 Rates depression at 0 /10 Identifies the following mitigating factors: self isolate. * ROS: A ll Other Systems: Review of Systems (ROS) S ee HPI for details. * Medical History: l eft MCL and meniscus repaired, Anxiety, Substance abuse, [place]. * Surgical History: M CL and Meniscus surgery 6-2022, hemorrhoidectomy . * Hospitalization/Major Diagno stic Procedure: S urgeries . * Family History: F ather: , dementia, throat cancer, diagnosed with Heart disease, unspecified. M other: , COPD, lung cancer, diagnosed with Chronic obstructive pulmonary disease, unspecified. pt. has 4 living children. * Social History: T obacco Use: T obacco Use/Smoking A re you a c urrent smoker, H ow many cigarettes a day do you smoke? 07 21-20. D rugs/Alcohol: D rugs H ave you used drugs other than those for medical reasons in the past 12 months??Yes, H eroin? Y es, A re you in a treatment program? Y es, A re you still using? N o, M ethamphetamine? Y es. A lcohol Screen (Audit-C) D id you have a drink containing alcohol in the past year? N o, P oints 0 , I nterpretation N egative. C affeine I ntake: 1 -2 cups per day. D o you smoke marijuana?: Denies. Do you drink alcohol?: No. M iscellaneous: C hildren: 5. Marital status: . H ousehold: [place] of education: GED. * Medications: T aking Lisinopril 10 MG Tablet 1 daily , Taking Crestor 10 MG Tablet 1 tablet Orally daily , Taking Aspirin 81 MG Capsule 1 capsule Orally daily , Taking Vitamin D 50 MCG (2000 UT) Tablet 1 tablet Orally daily , Taking Atenolol 50 MG Tablet 1 tablet Orally daily , Taking Ibuprofen 800 MG Tablet 1 tablet with food or milk as needed Orally every 8 hrs , Taking Methocarbamol 750 MG Tablet 1 tablet Orally twice a day As needed, Taking tiZANidine HCl 4 MG Tablet 1 tablet at bedtime as needed Orally Once a day , Taking Escitalopram Oxalate 10 MG Tablet 1 tablet Orally Once a day * Allergies: N .K.D.A. Objective: * Vitals: * Examination: G eneral Examination: Physical exam limited by nature of visit via telehealth. Patient sounds alert. Oriented to person/place/situation. Speech is clear and easy. Engaged in conversation today with appropriate fund of self knowledge. Appearance: well groomed, well nourished, appears to be stated age Abnormal body movements: none, no evidence of EPS Abstraction: intact for opposite, similarities, and proverbs Affect: appropriate, full range Aggression: low (none detected) Anger: none detected, able to identify ways to self sooth Attention: good Attitude: cooperative No active SI/HI Alert to surroundings Insight is appropriate with goals to achieve Judgement is fair-good Mood is pleasant, happy Orientation to person, place, time, situation No perceptual disorder, no hallucinations Psychomotor activity is in normal range and without agitation No hypersexual activity noted Speech is of normal rate/rhythm/volume Thought content is logical Thought process is intact. Assessment: * Assessment: 1. A nxiety - F41.9 (Primary) 2 . S ubstance abuse in remission - F19.11? Plan: * Treatment: 2. S ubstance abuse in remission Notes: Congratulated for the choice to become sober, encouraged in continued success Made aware of the availability for early f/u if needed Encouraged in daily exercise, meditation, reading, drawing, listening to music, socializing, helping others, learning a new skill, or partaking in health promoting lifestyle habits to promote gila? * Preventive Medicine: Counseling: C are goal follow-up plan: A enoch Normal BMI Follow-up L ifestyle education regarding diet. T obacco Use: P atient counselled on the dangers of tobacco use and urged to quit. 0 11/04/2024. * Follow Up: p rn (Reason: SPARC TH f/u with PMHNP) * Images: Billing Information: * Visit Code: 97255 Office Visit, Est Pt., Level 3. 73192 Medication Management. * Procedure Codes: * Electronic signature of Kim Oliver APRN on 05/24/2025 at 06:28 AM EST Sign off status: Pending Visit Status: R /S (Rescheduled) * Provider: Kiet Oliver APRN Date: 0 01/26/2025 Generated for Rosangela beth/Charlotte/Trino on: 1 07/24/2024 06:28 AM EST History and Physical Notes * Examination Category Sub-Category Detail Notes Category Not es General Examination Physical exam limited by nature of visit via telehealth. Patient sounds alert. Oriented to person/place/situation. Speech is clear and easy. Engaged in conversation today with appropriate fund of self knowledge. Appearance: well groomed, well nourished, appears to be stated age Abnormal body movements: none, no evidence of EPS Abstraction: intact for opposite, similarities, and proverbs Affect: appropriate, full range Aggression: low (none detected) Anger: none detected, able to identify ways to self sooth Attention: good Attitude: cooperative No active SI/HI Alert to surroundings Insight is appropriate with goals to achieve Judgement is fair-good Mood is pleasant, happy Orientation to person, place, time, situation No perceptual disorder, no hallucinations Psychomotor activity is in normal range and without agitation No hypersexual activity noted Speech is of normal rate/rhythm/volume Thought content is logical Thought process is intact
--- NOTE | 2025-05-24 | CA_ITS ---
APPROVED REPORT Exam: Pharmacologic Technologist: Anisa Mercer Stress Nurse: Leila EATON, RN Ht: 6 ft 0 in Wt: 264 lbs BSA: 2.40 m2 HR: 69 bpm BP: 137/85 mmHg Indications: Coronary Artery Disease, Dyspnea on Exertion, Fatigue Stress Test Details Test: Lexiscan HR Resting HR: 69 bpm Max Heart Rate (APMHR): 168.486739 bpm Max HR Achieved: 85 bpm Target HR (85% APMHR): 142.357009 bpm % of APMHR: 50.60 Recovery HR: 76 bpm BP Resting BP: 137.0/85.0 mmHg Max BP: 146.0/92.0 mmHg Recovery BP: 134.0/91.0 mmHg ECG Resting ECG: Sinus rhythm Stress ECG Conclusion Lungs clear to auscultation prior to test start. Symptoms: None Arrhythmias/Ectopy: PAC ST-T Changes: Less than 0.[address] segment changes Conclusion:Nondiagnostic ECG/Lexiscan Electronically signed by : Sunitha Gonzales MD 05/25/2025 00:56:36
--- OUTSIDE RECORDS SUMMARY | 2025-05-24 06:28 | XMS_ITS | Patient Health Record ---
Author Organization [facility] Address [address] [place] [id number] Care Team Providers Care Utilization Management Manager Name Role Phone Mckayla Thakur Primary Care Provider Allergies No Known Allergies Reason For Referral [...] 02/28/2025 Encounters Encounter Location Date Provider Diagnosis [facility] [address] [place] [id number] 02/28/2025 Mckayla Thakur Acute non-recurrent pansinusitis J01.40 [...] Coverage Start Date Coverage End Date [employer] [facility] [address] [address] [place] [phone] [id number] VENKAT KAT Self - patient is the insured 1 Medications Administered Medication Instructions Date of Administration Dosage Notes dexAMETHasone Sodium Phosphate 02/28/2025 1 mL bart well cefTRIAXone Sodium 02/28/2025 tolera richie well Medical (General) History Medical History History ICD Code HTN high Cholesterol Heroin /snorting/ 6 months clean
--- OUTSIDE RECORDS SUMMARY | 2025-05-24 06:28 | XMS_ITS | Patient Health Record ---
Author Organization [facility] [place] Address [address] [place] [address] Care Team Providers Care Associate Store Manager Name Role Phone Franklin Styles Primary Care Provider Lorena Rabago Unavailable [phone] Maureen Oliver Unavailable [phone] Allergies No Known Allergies Reason For Referral Reason Please schedule pt t o see urology in [place] for eval of hydrocele. He is at [facility], Please let Sienna know about appt date and time. Thanks. Diagnosis 1 Hydrocele, unspecifi ed hydrocele type (N43.3) Referral Organization [facility] Referring Provider First Name Lorena Referring Provider Last Name Gem Referring Provider Speciality Nurse Prac titioner Referred Provider Specialty Urology General Notes Josi Pfeiffer 10:09:11 AM >Referral faxed to Urology. Appt pending.Rosy Rhonda 12/09/2024 10:58:39 AM >Pt is scheduled with Jared Corbin on 03/17/2025 @ 2:00pm.Rosy Rhonda 12/09/2024 10:59:25 AM >Sienna at [facility] notified via email of appt date, time and location. Referral Priority Routine Referral Appointment Date 03/17/2025 Reason Please schedule pt f or eval and treat by chiropractor in [place]. He is at [facility]. Please let Sienna know about appt date and time. Thanks Diagnosis 1 Low back pain, unspe cified (M54.50) Referral Organization [facility] Referring Provider First Name Lorena Referring Provider Last Name Gem Referring Provider Speciality Nurse Prac francoiseioner Referred Provider Specialty Chiropractor General Notes Round O, Josi 10:22:58 AM >appt scheduled at [facility]. [address] Emailed Sienna [...] W/U Status Risk Notes Problem Tobacco user (894259209) Nicotine dependence, cigarettes, uncomplicated (F17.210) Active confirmed Problem Chronic pain (37451450) Other chronic pain (G89.29) Active confirmed Problem Nondependent alcohol abuse in remission (179953759) Alcohol abuse, in remission (F10.11) Active confirmed Problem Nondependent opioid abuse in remission (244190973) Opioid abuse, in remission (F11.11) Active confirmed Problem Hyperlipidemia (disorder) (37967833) Hyperlipidemia (disorder) (E78.5) Active confirmed Problem Allergic rhinitis (disorder) (59664868) Allergic rhinitis (disorder) (J30.9) Active confirmed Problem Vitamin D deficiency (75635472) Vitamin D deficiency (E55.9) Active confirmed Problem Generalized anxiety disorder (39085153) KRUNAL (generalized anxiety disorder) (F41.1) Active confirmed Problem Insomnia (991455798) Insomnia, unspecified type (G47.00) Active confirmed Problem Anxiety (85191633) Anxiety (F41.9) Active confirmed Problem Sciatica (63566680) Low back pain with radiation (M54.40) Active confirmed Problem Tobacco user (928720234) Smoker unmotivated to quit (F17.200) Active confirmed Problem 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 confirmed Problem Substance abuse in remission (F19.11) Active confirmed Problem Otitis externa (1039402) Otitis externa, unspecified chronicity, unspecified laterality, unspecified [...] 02/24/2025 Encounters Encounter Location Date Provider Diagnosis [address] [address] 11/04/2024 Maureen Benito Substance abuse in remission F19.11 ; Anxiety F41.9 and Smoker unmotivated to quit F17.[address] [address] 11/30/2024 Lorena Conn Other chronic pain G89.29 ; Low back pain, unspecified M54.50 and Hydrocele, unspecified hydrocele type N43.[address] [address] 01/05/2025 Maureen Benito Anxiety F41.9 ; Substance abuse in remission F19.11 and Smoker unmotivated to quit F17.[address] [address] 01/27/2025 Maureen Benito KRUNAL (generalized anxiety disorder) F41.1 and Methamphetamine abuse in remission F15.[address] [address] 02/24/2025 Maureen Napa KRUNAL (generalized anxiety disorder) F41.1 and Methamphetamine abuse in remission F15.11 [facility] [address] [address] - [address] [place] [address] 01/04/2025 [facility] [address] [place] [address] 12/03/2024 [facility] [address] [place] [address] 12/10/2024 [facility] [address] [place] [address] 03/07/2025 [facility] Assessments Encounter Date Diagnosis (ICD Code) Assessment [...] emergent help. Provided the help hotline for [place], from any cell text 281 . 01/27/2025 Methamphetamine abuse in remission (ICD-10 [...] emergent help. Provided the help hotline for [place], from any cell text 717 . 02/24/2025 Methamphetamine abuse in remission (ICD-10 [...] IgM 11/22/2022 Vitamin D, 25-Hydroxy 11/22/2022 Panel [id number] 11/22/2022 Albumin/Creatinine Ratio,Urine Trich vag by JAKOB 11/22/2022 Chlamydia trachomatis, JAKOB 11/22/2022 Neisseria gonorrhoeae, JAKOB 11/22/2022 Lipid Panel 11/22/2022 Comp. Metabolic Panel (14) 11/22/2022 HCV RT-PCR, Quant (Non-Graph) 11/22/2022 T3F+T4F+TSH 11/22/2022 Next Appt Details Provider Name:Maureen Oliver , 05/26/2025 09:15:00 AM, [address] [place] [address], [phone], Insurance Providers Payer Name Payer Address Payer Phone Subscriber Number Group Number Insured Name Patient Relationship to Insured Coverage Start Date Coverage End Date [employer] [address] [address] [place] [address] [id number] Musa Licea Self - patient is the insured 0 Medications Administered Medication Instructions Date of Administration Dosage Notes Vitamin B12 12/05/2022 Medical (General) History Medical History History ICD Code left MCL and meniscus repaired anxiety substance abuse [place] Surgical History Surgery Date(Month/Year) MCL and Meniscus surgery hemorrhoidectomy Hospitalization History Reason Date(Month/Year) Surgeries
--- OUTSIDE RECORDS SUMMARY | 2025-05-24 06:29 | XMS_ITS | Clinical Summary ---
Author Organization Healthcare Address [address] 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, were you homeless or living in a long-term (including now)? No 09/09/2024 Utilities Answer Date [...] Screenings 03/09/2025 [facility]-Adult SDOH Screenings 03/09/2025 09/09/2024 [id number] Vaccine ( - season) 2025 [facility]-Influenza Vaccine [...] this topic Medical Devices Implanted Type Area Motorcycle Engine Assembler Device Identifier Shelf Expiration Date Model / Serial / Lot Stent Coronary [employer] Rx 4.00mm X 26mm - [id number] Implanted:Qty: 1 on 09/08/2024 by Tanja ToureEmployment Security OfficerMD at [id number] 04/26/2027 [id number] UX / / [id number] Stent Coronary [place] [employer] Rx 3.50mm X 22mm - [id number] Implanted:Qty: 1 on 12/22/2024 by Mallika Bell MD at [id number] 05/30/2027 [id number] UX / / [id number] Procedures Procedure Name Priority Date/Time Associated Diagnosis Comments HEMOGLOBIN A1C Add-On 09/08/2024 9:59 AM EST from Last 3 Months or Most Recently Relevant to Health Maintenance Results * Hemoglobin A1c (09/08/2024 9:59 AM EST) Hemoglobin A1c 5.5 <5.7 % 09/08/2024 10:42 AM EST [facility] Blood Venous blood specimen / Unknown Venipuncture / Unknown 09/08/2024 9:59 AM EST 09/08/2024 10:12 AM EST Narrative [facility] - 09/08/2024 10:42 AM EST HA1C Interpretive Data: Diagnosis of Diabetes: Diabetic > or = 6.5% Pre-diabetic 5.7 to 6.4% Non-diabetic < or = 5.6% Glycemic Targets for Type I and Type II Diabetics: Non- Adults <7.0% Adults <6.0% Children and Adolescents <7.5% Source: Citizen Of [place] Diabetes Association. Standards of medical care in diabetes,2017. Diabetes Care.2017:40 (suppl 1):S1-S135. HbA1c assay performed by an ion-exchange chromatography method that is certified traceable to the DCCT. Luis Ellington MD LAB BLOOD ORDERABLES Final Res ult [facility] [address] [place] [address] from Last 3 Months or Most Recently Relevant to Health Maintenance [place] [address] [place] [address] [employer] Advance Directives * Full Code [...] Patient has decision-making capacity? Yes Care Teams Managing Attorney Relationship Specialty Start Date End Date Pcp, No [address] [place] [address] PCP - General Family Medicine 09/08/24
--- OUTSIDE RECORDS SUMMARY | 2025-05-24 06:29 | XMS_ITS | Encounter Summary ---
Author Organization Healthcare Address [address] [place] [address] Care Team Providers Care Audio Production Instructor Name Role Phone Pcp, No Primary Care Provider Unavailabl e Reason for Visit * Reason Onset Date Comments HCN - Patient Message 04/27/2025 Encounter Details Date Type Department Care Team (Late st Contact Info) Description 04/27/2025 Telephone [facility] [place] [facility] [address] [facility] [place] [id number] Mallika Bell MD [address] [place] [address] HCN - Patient Message Social [...] any time in the past 12 m [facility], were you homeless or living in a half-way (including now)? No 09/09/2024 Utilities Answer Date [...] optimal time of day to reach caller: [phone] Note: Please do not reply to this message. Follow-up communication and further actions as a result of this message need to be communicated with the patient directly, if the patient is not active onMyChart. If the patient is active on MyChart, they will receive notification of the communication/outcome via [employer] [employer]. documented in this encounter Plan of Treatment [...] documented as of this encounter Care Teams Audio Production Instructor Relationship Specialty Start Date End Date Pcp, [place] [address] PCP - General Family Medicine 09/08/24 documented as of this encounter
--- NOTE | 2025-05-24 06:30 | NM_ITS ---
APPROVED REPORT Exam: Nuclear Stress Test Indication: CAD, Hx of HI, HTN, Tobacco use, SOB Patient Location: Outpatient Stress Tech: Anisa Mercer MD Tech:Dorothy Matos, ARRT, RT (R)(N) Ht: 6 ft 0 in Wt: 240 lbs HR: 70 bpm BP: 137/85 mmHg BSA: 2.30 m2 TID: 1.23 History: CAD, Hx of HI, HTN, Tobacco use, SOB Procedure: Patient received 0.4 mg of intravenous Lexiscan, resting heart rate 70 bpm, resting blood pressure 137/85 mmHg, with Lexiscan maximum heart rate achieved was 85 bpm which is % of the maximum predicted heart rate and blood pressure was 146/92 mmHg. With Lexiscan, patient denied any complaint of chest pain. Cardiac Stress and Resting SPECT Images: Cardiac Stress and Resting SPECT images were obtained using technetium 99m Myoview 30.9 mCi stress and 10.43 mCi at rest. Resting and stress imaging in supine and prone positions demonstrate a medium sized, moderate, fixed perfusion defect in the basal to mid inferior LV wall. There is also increase in transient ischemic dilatation ratio (TID 1.23), which may be suggestive of possible multivessel disease or balanced ischemia. Gated imaging demonstrates mild reduction in global LV systolic function. LVEF is calculated at 46%. Conclusion: Medium sized, moderate, fixed perfusion defect in the basal to mid inferior LV wall. There is also increase in transient ischemic dilatation ratio (TID 1.23), which may be suggestive of possible multivessel disease or balanced ischemia. Gated imaging demonstrates mild reduction in global LV systolic function. LVEF is calculated at 46%. Electronically signed by : Sunitha Gonzales MD 05/25/2025 00:45:59
[2025-05-24 08:00] VITALS: BP 137/85; PULSE 69; RESP 14
[2025-05-24] MEDS: ISOTOPE MYOVIEW (PER STUDY) 1 DOSE IV (08:21)
[2025-05-24] MEDS: SODIUM CHLORIDE 0.9% 10ML SYR (RAD ONLY) 10 ML IV ×2 (08:21)
--- NOTE | 2025-05-24 09:00 | CA_ITS ---
APPROVED REPORT EXAM: Comprehensive 2D, Doppler, and color-flow Echocardiogram Rivet Thrower: YUNIOR Ortiz, RVS Ht: 6 ft 0 in Wt: 264lbs BSA: 2.40 BP: 142/93 mmHg Indications: CAD, IYER, Smoker, HTN, HLD Echo Enhancing Agent Comments: TDS: Limited windows due to lung impedance 2D Dimensions IVSd 1.04 cm LVEF (Visual) 68.90 % PWd 1.34 cm LA Volume 73.10 mL LVDd 5.67 cm LA Volume Index 29.70 mL/m2 (M/F) 16-34 LVDs 3.45 cm Left Atrium 3.92 cm M-Mode Dimensions LA Diam 3.82 cm (1.9-4.0) EPSs 0.74 cm TAPSE 1.93 (<1.7) LV Diastology E Decel Time 223 (160-240 msec) E/A Ratio 1.22 MED A' 9.20 cm/s LAT A' 9.60 cm/s Aortic Valve KWADWO Index 0.96 cm2/m2 AoV Peak Ernesto. 119.0 (50-130 cm/s) AO Peak GR. 5.60 mmHg AO Mean GR. 2.80 (<5 mmHg) AO VTI 24.7 (18-25 cm) KWADWO (VTI) 2.36 (2.5-4.5 cm2) Mitral Valve MV A Velocity 62.0 (40-130 cm/s) E/A Ratio 1.22 Left Ventricle The left ventricle is normal size. Left ventricular systolic function is normal. The left ventricular ejection fraction is within the normal range. There is increased left ventricular wall thickness. There is normal LV segmental wall motion. Transmitral Doppler flow pattern suggests impaired LV relaxation. LVEF is 60% Right Ventricle The right ventricle is normal size. The right ventricular systolic function is normal. Atria The left atrium size is normal. The right atrium size is normal. There is no color Doppler evidence of interatrial shunt. Aortic Valve The aortic valve is mildly thickened. There is no hemodynamically significant aortic valvular stenosis. Trace aortic regurgitation is present. Mitral Valve The mitral valve is normal in structure. No evidence of mitral valve stenosis. Trace mitral regurgitation is present. Tricuspid Valve The tricuspid valve leaflets are thin and pliable. Trace tricuspid regurgitation. There is insufficient TR jet to estimate RVSP. Pulmonic Valve The pulmonary valve is grossly normal in structure. Trace pulmonic valve regurgitation is present. Great Vessels The aortic root is normal in size. IVC is normal in size and collapses >50% with inspiration. Pericardium There is no pericardial effusion. Other Information Study Quality: Fair Conclusion Normal biventricular systolic function. No significant valvular stenosis or regurgitation. Electronically signed by : Sunitha Gonzales MD 06/04/2025 01:09:07
[2025-05-24 10:30] VITALS: PULSE 72; PULSE 77
[2025-05-24] MEDS: ALBUTEROL 0.083% 2.5 MG/3 ML NEB IH (12:06)
--- NOTE | 2025-05-24 15:30 | CT_ITS ---
FINAL REPORT TECHNIQUE: Thin section axial images were obtained through the lungs using a low-dose technique per lung cancer screening protocol. Reconstruction images were obtained using the axial data. Exam was performed using dose reduction technique. CLINICAL HISTORY: lung cancer screening current smoker 1ppd x25 years FINDINGS: CTDLvol: 2.90 DLP: 107.33 Current smoker 25 pack year history Lungs: No acute pulmonary abnormality. There is evidence of prior granulomatous disease. No suspicious nodules. Lymph nodes: No thoracic lymphadenopathy. Mediastinum: Heart size is normal. Pleura/pericardium: No pleural or pericardial effusion. Other: No acute abnormality in the upper abdomen. There appears to be at least 1 coronary artery stent. Coronary artery calcifications are noted. IMPRESSION: No suspicious pulmonary nodule or mass. Coronary artery disease Lung RADS: 1S Recommendation: 1 year follow-up Reviewed, Interpreted and Dictated by Mariia Smith MD Transcribed by Estela Mckinley Authenticated and [facility]
== END 2025-05-24 23:59 | disposition home or self-care (01) ==
LOC: RAD 06:26
PROVIDERS: PCP Family Medicine; Visit Provider Family Medicine
DX: J44.9 Chronic obstructive pulmonary disease, unspecified (principal); I49.1 Atrial premature depolarization; I25.118 Atherosclerotic heart disease of native coronary artery with other forms of angina pectoris; F17.210 Nicotine dependence, cigarettes, uncomplicated; I10 Essential (primary) hypertension; I25.2 Old myocardial infarction; E78.5 Hyperlipidemia, unspecified; R94.39 Abnormal result of other cardiovascular function study; Z12.2 Encounter for screening for malignant neoplasm of respiratory organs
CPT/HCPCS: 71271; 78452; 93017; 93018; 93306; 94010; 94640; 94727; 94729; A9502; J2785

== ENCOUNTER 2025-07-12 08:01 | Day surgery (SDC) | payer MEDICAID, SELFPAY ==
[2025-07-12] VITALS (11 sets, daily range): BP systolic 118–142; BP diastolic 68–84; PULSE 72–88; RESP 15–20; TEMP 36.1; O2SAT 92–98; BMI 36.4
--- NOTE | 2025-07-12 07:50 | IR_ITS ---
APPROVED REPORT Patient Location: Outpatient Top Icer: Kenroy Mayo, RT (R) PROCEDURES Left heart catheterization Left ventriculogram Selective coronary angiogram INDICATION Abnormal Myoview, Angina pectoris Informed consent was obtained prior to the procedure. COMPLICATIONS none Estimated Blood Loss: less than 10ml TECHNIQUE One percent lidocaine used to anesthetize the medial anterior aspect of the wrist. The right ulnar l artery was accessed via the Seldinger technique. A 6 [place] sheath was placed in the right ulnar l artery. 2.5 mg of Verapamil, 800 mcg of nitroglycerin, 1mg Lidocaine and 5000 U Heparin were given through the arterial sheath. The JL3 catheter was also used to perform left heart catheterization, left ventriculogram and selective coronary angiogram. At the end of the procedure the sheath was removed good hemostasis was achieved using Traclet band, patient was transferred to the postop holding area in stable condition. ANGIOGRAPHIC RESULTS The left main artery Normal The left anterior descending artery Has a proximal concentric 30 to 40% stenosis with remaining vessel normal The circumflex artery Widely patent mild 10% luminal regularities The right coronary artery Large dominant 10% luminal irregularities The VENTURA ventriculogram reveals Normal 60% The left ventricular end-diastolic pressure 20 mmHg IMPRESSION Mild to moderate proximal LAD disease as described above Normal ejection fraction Elevated LVEDP Random blood sugar suggestive of impaired glucose tolerance or possible early diabetes PLAN 1. Medical management for coronary artery disease 2. LDL less than 55 to be achieved with high intensity statin 3. Recommend sleep study 4. Hemoglobin A1c +2-hour glucose tolerance test. Strongly suspected patient has diabetes 5. Risk factor modification 6. Weight loss exercise Electronically signed by : Will Rogel MD 07/12/2025 10:19:18
[2025-07-12 08:30] LABS: Hematocrit 43.9 % (42.0-52.0); Hemoglobin 15.1 g/dL (14.1-18.0); Immature Granulocytes % 0.7 %; Mean Corpuscular HGB Conc 34.4 g/dL (31.8-35.4); Mean Corpuscular Hemoglobin 31.7 pg (27.0-31.2); Mean Corpuscular Volume 92.0 fl (80-94); Nucleated Red Blood Cells % 0 %; Platelet Count 217 K/mm3 (142-424); Red Blood Count 4.77 M/mm3 (4.60-6.20); Red Cell Distribution Width-SD 44.4 fL; White Blood Count 9.8 K/mm3 (4.8-10.8)
[2025-07-12 08:39] LABS: Anion Gap 8.9 mEq/L (5-15); Blood Urea Nitrogen 15 mg/dl (9-20); Calcium 8.9 mg/dl (8.4-10.2); Carbon Dioxide 25 mmol/L (22.0-30.0); Chloride 109 mmol/L (98-107); Creatinine Clearance Estimated 149 mL/min (50-200); Creatinine,Serum 1.00 mg/dl (0.66-1.25); Estimated Glomerular Filt Rate 78 ml/min (>60); GFR (African American) 95 ML/MIN (>60); Glucose 98 mg/dl (74-100); Potassium 3.9 mmoL/L (3.5-5.1); Sodium 139 mmol/L (136-145)
[2025-07-12] MEDS: NITROGLYCERIN 800MCG/8ML SYR (CATH LAB) 800 MCG IA (09:41)
[2025-07-12] MEDS: 0.9 % SODIUM CHLORIDE 500 ML 25 ML IV (09:42)
[2025-07-12] MEDS: HEPARIN 1,000 UNITS/ML 10ML VIAL (CATH LAB) 5000 UNIT IV (09:42)
[2025-07-12] MEDS: VERAPAMIL 2.5MG/ML 2ML VIAL 2.5 MG IV (09:42)
[2025-07-12] MEDS: HEPARIN 1,000 UNITS/500ML NS (CATH LAB) 3000 UNIT IV (09:42)
[2025-07-12] MEDS: LIDOCAINE 1% 10ML MDV 10 ML IJ (09:42)
[2025-07-12] MEDS: MIDAZOLAM HCL 1MG/ML 5ML VIAL 1 MG IV (10:16)
[2025-07-12] MEDS: FENTANYL 100MCG/2ML VIAL 50 MCG IV (10:17)
== END 2025-07-12 13:00 | disposition home or self-care (01) ==
LOC: CATHLAB 08:02
PROVIDERS: PCP Student in an Organized Health Care Education/Training Program; Visit Provider Internal Medicine
PROC: 4A023N7 Measurement of Cardiac Sampling and Pressure, Left Heart, Percutaneous Approach (ICD-10-PCS; CPT 93452; principal; 2025-07-12 07:15)
DX: I25.119 Atherosclerotic heart disease of native coronary artery with unspecified angina pectoris (principal); R93.1 Abnormal findings on diagnostic imaging of heart and coronary circulation; R94.31 Abnormal electrocardiogram [ECG] [EKG]; I10 Essential (primary) hypertension; R06.09 Other forms of dyspnea; I25.2 Old myocardial infarction; Z95.5 Presence of coronary angioplasty implant and graft; F17.210 Nicotine dependence, cigarettes, uncomplicated; Z79.02 Long term (current) use of antithrombotics/antiplatelets; Z79.82 Long term (current) use of aspirin; Z79.899 Other long term (current) drug therapy; Z82.49 Family history of ischemic heart disease and other diseases of the circulatory system
CPT/HCPCS: 80048; 85025; 93458; 99152; 99153; C1760; C1769; C1887; J1200; J1644; J2003; J3010; J7040; Q9967